=== PATIENT | female | born 1940 | race Two or more races ===

== ENCOUNTER 2017-01-29 00:39 | Inpatient (IN) | payer OTHER ==
[2017-01-29 01:01] VITALS: BMI 25.4
[2017-01-29] MEDS ORDERED: SODIUM CHLORIDE 0.9% 1000 ML INFUS.BAG IV ONE (01:27)
[2017-01-29] MEDS ORDERED: ACETAMINOPHEN 1000 MG/100 ML VIAL (NON FORMULARY) IVPB ONE (01:27)
[2017-01-29] MEDS ORDERED: ACETAMINOPHEN INJECTION 100 ML IVPB ONE (01:38)
[2017-01-29 01:40] LABS: BASOPHIL 0.9 % (0-2.0); EOSINOPHIL 2.8 % (0-4.5); MCH 22.1 pg (25.7-33.7); MCHC 31.1 g/dl (32.0-36.0); PLATELET COUNT 225 K/MM3 (134-434); RDW 21.4 % (11.6-15.6); WHITE BLOOD COUNT 8.9 K/mm3 (4.0-10.0)
[2017-01-29 01:44] LABS: ANISOCYTOSIS 2+; HYPOCHROMIA 2+; MICROCYTOSIS 2+
[2017-01-29 02:08] LABS: ALBUMIN 3.6 g/dl (3.4-5.0); BILIRUBIN,TOTAL 0.7 mg/dL (0.2-1.0); CALCIUM 8.9 mg/dL (8.5-10.1); COCKROFT - GAULT 23.902; TOT PROT 7.8 g/dl (6.4-8.2)
[2017-01-29 02:27] LABS: TROPONIN I 0.62 ng/ml (0.00-0.05)
[2017-01-29 03:49] LABS: URINE APPEARANCE CLEAR; URINE BILIRUBIN NEGATIVE (NEGATIVE); URINE BLOOD NEGATIVE (NEGATIVE); URINE COLOR LTYELLOW; URINE GLUCOSE (UA) NEGATIVE (NEGATIVE); URINE KETONE NEGATIVE (NEGATIVE); URINE LEUK ESTERASE NEGATIVE (NEGATIVE); URINE NITRITE NEGATIVE (NEGATIVE); URINE PROTEIN NEGATIVE (NEGATIVE); URINE UROBILINOGEN NEGATIVE E.U./dl (0.2-1.0)
--- NOTE | 2017-01-29 05:38 | PDOC ---
History of Present Illness - General Chief Complaint: Chest Pain Stated Complaint: PAIN CHEST AND BACK Time Seen by Provider: 01/29/17 01:05 History Source: Patient Exam Limitations: No Limitations - History of Present Illness Initial Comments: 01/29/17 05:38 76yo Female patient w/ PmHx: Open heart surgery, Stent placement, Pacemaker, HTN , DM presents to ED c/o Chest Pain that began yesterday morning and has been intermittent. Associated back pain. Patient denies any other complaints at this time. PCP- Dr. Gipson Cardiology- Dr. Ho Presenting Symptoms: Chest Pain Timing/Duration: reports: getting worse, intermittent Severity/Quality: reports: moderate Location: reports: substernal Chest Pain Radiation: reports: back Activities at Onset: reports: no specific activity Modifying Factors: worse with: antacids, breathing, coughing, defecating, eating , exercise, lying down, morphine, movement, nitroglycerin, oxygen, palpation, rest, other Nitro Today/Relief: No: no nitro taken today, 0.4 mg x 1, 0.4 mg x 2, 0.4 mg x 3 , 0.4 mg x 4, provided by EMS, provided by ED, provided at home, no relief, mild relief, complete relief Aspirin Received prior to arrival (Core Measure): Yes: provided at home [place] Contraindications (Core Measure): Yes: Pacemaker Past History - Travel Traveled outside of the country in the last 30 days: No Close contact w/someone who was outside of country & ill: No - Past Medical History Allergies/Adverse Reactions: Allergies Allergy/AdvReac Type Severity Reaction Status Date / Time No Known Allergies Allergy Verified 01/29/17 03:35 Home Medications: Ambulatory Orders Magnesium Oxide 400 mg PO DAILY 05/01/14 Metformin HCl [Glucophage] 500 mg PO BID 05/01/14 Aspirin Coated [Ecotrin -] 81 mg PO DAILY #30 tablet.ec 12/21/15 Digoxin [Lanoxin -] 0.125 mg PO DAILY tablet 12/21/15 Lisinopril [Prinivil] 2.5 mg PO DAILY #30 tablet 12/21/15 Naproxen [Naprosyn -] 500 mg PO BID 02/26/16 Pantoprazole Sodium [Protonix] 40 mg PO DAILY 02/26/16 Furosemide [Lasix -] 40 mg PO BID #60 tablet 03/01/16 Metoprolol Succinate [Toprol XL -] 50 mg PO BID #60 tab.sr.24h 03/01/16 Potassium Chloride [K-Dur -] 20 meq PO DAILY #0 03/01/16 Anemia: Yes Asthma: Yes Cancer: Yes (uterus) Cardiac Disorders: Yes (A FIB,CABG, PPM, ICD, MVR) CVA: No COPD: No CHF: No Dementia: No Diabetes: Yes GI Disorders: No Disorders: No HTN: Yes Hypercholesterolemia: Yes Liver Disease: No Seizures: No Thyroid Disease: No - Surgical History Abdominal Surgery: No Appendectomy: No Cardiac Surgery: Yes (bypass PACEMAKER) Cholecystectomy: No Lung Surgery: No Orthopedic Surgery: No - Immunization History Immunization Up to Date: No - Psycho/Social/Smoking Cessation Hx Anxiety: No Suicidal Ideation: No Smoking Status: No Smoking History: Never smoked Have you smoked in the past 12 months: No Number of Cigarettes Smoked Daily: 0 If you are a former smoker, when did you quit?: 1995 Information on smoking cessation initiated: No Hx Alcohol Use: No Drug/Substance Use Hx: No Substance Use Type: None Hx Substance Use Treatment: No Cardiac Specific PMH - Complaint Specific PMHX Pacemaker: Yes Review of Systems - Review of Systems Able to Perform ROS?: Yes Is the patient limited Bulgarian proficient: No Constitutional: No: Chills, Fever Respiratory: No: Cough, Shortness of Breath, Stridor, Wheezing Cardiac (ROS): Yes: Chest Pain, Palpitations. No: Lightheadedness, Syncope, Chest Tightness ABD/GI: No: Constipated, Diarrhea, Nausea, Poor Appetite, Poor Fluid Intake, Rectal Bleeding, Vomiting : No: Dysuria, Flank Pain, Hematuria Musculoskeletal: Yes: Back Pain Integumentary: No: Bruising, Erythema, Rash, Sweating Neurological: No: Headache, Seizure, Unsteady Gait, Ataxia All Other Systems: Reviewed and Negative *Physical Exam - Vital Signs Last Vital Signs Temp Pulse Resp BP Pulse Ox 98.1 F 64 18 106/61 100 01/29/17 00:59 01/29/17 04:42 01/29/17 04:42 01/29/17 04:42 01/29/17 04:42 - Physical Exam General Appearance: Yes: Nourished, Appropriately Dressed. No: Apparent Distress, Mild Distress, Moderate Distress, Severe Distress Neck: positive: Trachea midline, Supple. negative: Stridor, Lymphadenopathy (R) , Lymphadenopathy (L) Respiratory/Chest: positive: Lungs Clear, Normal Breath Sounds. negative: Chest Tender, Respiratory Distress, Accessory Muscle Use, Labored Respiration, Rapid RR Cardiovascular: positive: Tachycardia Gastrointestinal/Abdominal: positive: Normal Bowel Sounds, Soft. negative: Distended, Guarding, Rebound, Tenderness Musculoskeletal: positive: Normal Inspection. negative: CVA Tenderness, Vertebral Tenderness Extremity: positive: Normal Capillary Refill, Normal Inspection, Normal Range of Motion. negative: Pedal Edema, Swelling, Calf Tenderness, Erythema, Inflammation Integumentary: positive: Normal Color, Dry, Warm. negative: Erythema, Rash, Swelling Neurologic: positive: bank courier II-XII NML intact, Fully Oriented, Alert, Normal Mood/ Affect, Normal Response, Motor Strength 5/5 Heart Score/ECG Review - History History: Moderately suspicious - Electrocardiogram EKG: Non specific repolarization disturbance - Age Age: >/= 65 - Risk Factors Risk Factors Heart Score: Yes Hx Hypertension, Yes Hx Diabetes Based on the list above the patient has:: 1-2 risk factors - Troponin Troponin: >/=3x normal limit - Score Heart Score - Total: 7 ED Treatment Course - LABORATORY CBC & Chemistry Diagram: 01/29/17 01:30 01/29/17 01:30 - ADDITIONAL ORDERS Additional order review: Laboratory Results 01/29/17 01/29/17 01:30 01:28 Sodium 134 L Potassium 5.3 H Chloride 97 L Carbon Dioxide 24 Anion Gap 13 BUN 50 H Creatinine 2.0 H Creat Clearance w eGFR 24.10 Random Glucose 153 H Calcium 8.9 Total Bilirubin 0.7 AST 41 H D ALT 27 D Alkaline Phosphatase 140 H Creatine Kinase 111 Troponin I 0.62 H* Total Protein 7.8 Albumin 3.6 Urine Color Ltyellow Urine Appearance Clear Urine pH 5.0 Urine Protein Negative Urine Glucose (UA) Negative Urine Ketones Negative Urine Blood Negative Urine Nitrite Negative Urine Bilirubin Negative Urine Urobilinogen Negative Ur Leukocyte Esterase Negative 01/29/17 01:30 RBC 4.39 MCV 71.0 L MCHC 31.1 L RDW 21.4 H MPV 9.0 Neutrophils % 60.0 Lymphocytes % 21.8 D Monocytes % 14.5 H Eosinophils % 2.8 Basophils % 0.9 - RADIOLOGY Radiology Studies Ordered: Category Date Time Status CHEST X-RAY PORTABLE* [RAD] Stat Radiology 01/29/17 01:28 Taken - Medications Given in the ED: ED Medications Discontinued Medications Generic Name Dose Route Start Last Admin Trade Name Freq PRN Reason Stop Dose Admin Acetaminophen 1,000 mg 01/29/17 01:27 01/29/17 01:43 Ofirmev Injection - IVPB 01/29/17 01:28 1,000 mg ONCE ONE Administration Sodium Chloride 250 ml 01/29/17 01:27 01/29/17 02:05 Normal Saline - IV 01/29/17 01:28 250 ml ONCE ONE Administration Medical Decision Making - Medical Decision Making 01/29/17 05:[address] Ortiz. Give ASA and Lopressor. No anticoagulation until second trop. If still having CP give SL Nitro prn. *DC/Admit/Observation/Transfer Diagnosis at time of Disposition: Chest pain, Elevated troponin level - Discharge Dispostion Condition at time of disposition: Fair Admit: Yes
[2017-01-29] MEDS ORDERED: METOPROLOL TARTRATE 25 MG TABLET (FP) PO ONE (05:44)
[2017-01-29] MEDS ORDERED: ASPIRIN 81 MG CHEWABLE TABLETS PO ONE (05:44)
[2017-01-29] MEDS ORDERED: ASPIRIN 81 MG CHEWABLE TABLETS ONE (05:55)
[2017-01-29 07:55] LABS: INR 1.11 (0.82-1.09); PROTHROMBIN TIME (PATIENT) 12.2 SEC (9.98-11.88)
--- NOTE | 2017-01-29 08:39 | HP ---
Admitting History and Physical - Primary Care Physician PCP: Aldo Gipson - Past Medical History Cardiovascular: Yes: AFIB, CAD, CHF (s/p AICD), HTN Gastrointestinal: No: GI Bleed Heme/Onc: Yes: Anemia, Cancer (vaginal cancer) Endocrine: Yes: Diabetes Mellitus - Past Surgical History Past Surgical History: Yes: CABG, Permanent Pacemaker - Smoking History Smoking history: Never smoked Have you smoked in the past 12 months: No Aproximately how many cigarettes per day: 0 If you are a former smoker, when did you quit?: 1995 - Alcohol/Substance Use Hx Alcohol Use: No - Social History History of Recent Travel: No <Reji Patel - Last Filed: 01/29/17 08:39> Home Medications <Reji Patel - Last Filed: 01/29/17 08:39> <Anamaria Velázquez - Last Filed: 01/29/17 13:13> - Allergies Allergies/Adverse Reactions: Allergies Allergy/AdvReac Type Severity Reaction Status Date / Time No Known Allergies Allergy Verified 01/29/17 03:35 - Home Medications Home Medications: Ambulatory Orders Magnesium Oxide 400 mg PO DAILY 05/01/14 Metformin HCl [Glucophage] 500 mg PO BID 05/01/14 Aspirin Coated [Ecotrin -] 81 mg PO DAILY #30 tablet.ec 12/21/15 Digoxin [Lanoxin -] 0.125 mg PO DAILY tablet 12/21/15 Lisinopril [Prinivil] 2.5 mg PO DAILY #30 tablet 12/21/15 Naproxen [Naprosyn -] 500 mg PO BID 02/26/16 Pantoprazole Sodium [Protonix] 40 mg PO DAILY 02/26/16 Furosemide [Lasix -] 40 mg PO BID #60 tablet 03/01/16 Metoprolol Succinate [Toprol XL -] 50 mg PO BID #60 tab.sr.24h 03/01/16 Potassium Chloride [K-Dur -] 20 meq PO DAILY #0 03/01/16 Physical Examination Vital Signs: Vital Signs Temperature 98.1 F 01/29/17 00:59 Pulse Rate 64 01/29/17 04:42 Respiratory Rate 18 01/29/17 04:42 Blood Pressure 106/61 01/29/17 04:42 O2 Sat by Pulse Oximetry (%) 100 01/29/17 04:42 <Reji Patel - Last Filed: 01/29/17 08:39> Vital Signs: Vital Signs Temperature 98.1 F 01/29/17 00:59 Pulse Rate 65 01/29/17 08:42 Respiratory Rate 15 01/29/17 08:42 Blood Pressure 98/60 01/29/17 08:42 O2 Sat by Pulse Oximetry (%) 96 01/29/17 08:42 <Anamaria Velázquez - Last Filed: 01/29/17 13:13>
[2017-01-29 09:37] LABS: TROPONIN I 1.51 ng/ml (0.00-0.05)
--- NOTE | 2017-01-29 09:51 | CON.CARD ---
Cardiology Consult (text) - Consultation Consultation Note: cc: cp hpi: 76 yo f hx ICM, CHF (severely reduced LVEF), s/p ICD (single chamber, [employer], placed 07/2013), CAD s/p cabg and prior multiple PCI (cabg 2012 at [facility], russell to lad and svg to om), MVR (bio) 10/2012, p-afib/flutter (s/p MAZE and DARIO ligation 10/2012), mod-sev (low flow low gradient?), dm, htn, hld, anemia requiring transfusions here with cp. States she has had stable intermittent cp with exertion. On sunday worsened in frequency and severity. Now with left side cp after walking which radiates to the back and neck. Resolves with rest. No sx's at rest. currently cp free No worsening of stable desai. No palps, dizzy, loc, pnd, orthopnea, le edema. Did not miss any meds. No bleeding. s/p NTG by ems. On arrival to ER was in RVR. Spontaneously converted. cardio ginelli pmh: per hpi psh: cabd, mvr, icd social: former tobacco, no etoh or illicits fam: mother with unknown heart problems, daughter with unknown open heart surgery. ros: per hpi; no f/c/s, nvd, cough, nasal congestion, rash, wt loss, h/a, vision changes meds: Ambulatory Orders Magnesium Oxide 400 mg PO DAILY 05/01/14 Metformin HCl [Glucophage] 500 mg PO BID 05/01/14 Aspirin Coated [Ecotrin -] 81 mg PO DAILY #30 tablet.ec 12/21/15 Digoxin [Lanoxin -] 0.125 mg PO DAILY tablet 12/21/15 Lisinopril [Prinivil] 2.5 mg PO DAILY #30 tablet 12/21/15 Naproxen [Naprosyn -] 500 mg PO BID 02/26/16 Pantoprazole Sodium [Protonix] 40 mg PO DAILY 02/26/16 Furosemide [Lasix -] 40 mg PO BID #60 tablet 03/01/16 Metoprolol Succinate [Toprol XL -] 50 mg PO BID #60 tab.sr.24h 03/01/16 Potassium Chloride [K-Dur -] 20 meq PO DAILY #0 03/01/16 pe: Vital Signs - 24 hr 01/29/17 01/29/17 01/29/17 00:59 01:01 01:15 Temperature 98.1 F Pulse Rate 122 H Pulse Rate [ Apical] Respiratory 20 20 Rate Blood Pressure 98/69 Blood Pressure [Left Arm] O2 Sat by Pulse 95 100 97 Oximetry (%) 01/29/17 01/29/17 04:42 08:42 Temperature Pulse Rate Pulse Rate [ 64 65 Apical] Respiratory 18 15 Rate Blood Pressure Blood Pressure 106/61 98/60 [Left Arm] O2 Sat by Pulse 100 96 Oximetry (%) nad, calm JVD flat, neck supple pocket site non-erythematous, non-tender rrr s1s2 2/6 murmur at sternal border. cta bl nl eff aaox3 no le e/c/c abd nt nd pos bs no jaundice diaphoresis pos dp pt, no carotid bruits CBC, BMP 01/29/17 01:30 01/29/17 01:30 Laboratory Tests 01/29/17 01/29/17 01:30 08:46 Total Bilirubin 0.7 AST 41 H D ALT 27 D Alkaline Phosphatase 140 H Troponin I 0.62 H* 1.51 H* Albumin 3.6 tele: SR, occ pvc's and demand pacing. ecg 1: SVT, 121 bpm (qrs widening likely from underlying IVCD). lateral STD/T wave abnormalities. . ecg 2: sr, first degree avb, nonspecific ivcd, pvc's. LAD lateral STD/T wave abnormalities. (similar to priors) cxr: clear lungs Echo 09/2016: sev lve. lvef 35%. global. nl rv, mild lae, trace-mild ar, mod as, nl bio mvr, mild-mod tr, mild phtn. Echo 02/2016: mod lv dilation, severe LV dysfunction (global). Nl RV size (no mention of function). sev lae. mod-sev . mg 24. mild-mod AR. bioMVR MG 4.3. 1+ mr . mod-sev tr. rvsp 40-50. echo 07/2014: severely reduced lvef (25%), severe global hypo, mod dilated LV, normal RV s/f, mod lae, normal functioning bioprosthetic MVR, mild , trace ar , mild/mod tr, rvsp 30-40. Echo 12/2012: sev decreased LVEF, mod dilated LV, nl rv size/fcn, mod dil la, mild-mod dil ra, trace mr, mod-sev tr, rvsp 37, mod-sev aortic sclerosis with mild-mod cath 03/23/14 at [facility] [place]: patent russell to lad, patent svg to om1, patent prior pci in pRCA, mRCA (30-50%), AV continuation 80-90% --> WILL, ISR of pLAD (70-80%), patent D2 stent, TO/ISR of pLCx, TO/ISR OM1. EF 25%. No on pull back. mibi 02/2014: Moderate intensity, moderate size mostly fixed defect of inferior wall consistent with scar with minimal bianca-infarct ischemia. Mild intensity, moderate size reversible defect from mid to base of anterior, anteroseptal, anterolateral browne consistent with mild ischemia. LVEF is severely reduced with global hypokinesis and severely dilated LV. -->sent for cath after this MIBI a/p: 76 yo f hx ICM, CHF (severely reduced LVEF), s/p ICD (single chamber, [employer], placed 07/2013), CAD s/p cabg and prior multiple PCI (cabg 2012 at [facility], russell to lad and svg to om), MVR (bio) 10/2012, p-afib/flutter (s/p MAZE and DARIO ligation 10/2012), mod-sev (low flow low gradient?), dm, htn, hld, anemia requiring transfusions here with cp. CP - + troponin, trending up. Nl CK. + exertional angina. ? demand in setting of CKD, RVR vs. symtomatic severe vs. ACS/NSTEMI. Patient high risk, would treat as nstemi and start AC. con't ASA. Add plavix. statin. - trend enzymes to peak. Will likely need transfer for cath/dobutamine assessment of aortic valve. Patient previously could not tolerate coumadin due to anemia/transfusions wit no clear source --> have held AC based on risk/ benefit evaluation. Will need to assess if she is a candidate for DAPT if stent were to be needed. Will discuss with her outpatient flight hostess. - remains cp free. - repeat echo. ICM, severely reduced EF s/p ICD: - Patient on 40 mg of lasix at home. Appears euvolemic, but may be decompensated in setting of low output/low flow . -Would hold KEV for now in light of hyperkalemia. Con't toprol for now to suppress RVR. - con't home diuretic dose for now. -Most recent ICD interrogation 11/2016 per office notes. Brief episodes of asx svt. Patient denies shocks. - unclear to me if moderate or if low-flow, low gradient . No gradient on pullback at 2014 cath. Will discuss with outpatient flight hostess regarding whether current picture could be from symptomatic severe and need for dobutamine study/TAVR eval. cad s/p CABG, mult PCIs (last was WILL to AV continuation/RCA in March 2014): - CP/ACS managment as above. -cont lipitor, bb, asa. adding plavix. holding kev. p-afib/flutter: -S/p MAZE and DARIO ligation. -In RVR on arrival, now rate controlled in SR -hold digoxin in light of K abnormalities. will get digoxing level this afternoon. con't bb -Could not tolerate coumadin due to anemia requiring frequent transfusions and no clear source. Has DARIO ligation so embolic risk likely low regardless. Cont asa for now. (temporary AC for nstemi as mentioned above). htn: -stable on meds. runs low. s/p bio MVR: -recent echo with nl biomvr. anemia with h/o transfusions - hgb at baseline here. Monitor on anti-platelets/AC.
[2017-01-29] MEDS ORDERED: HEPARIN NA (PORCINE) 5,000 UNITS/ML 1ML VIAL IVPUSH PRN ×2 (11:18→11:48)
--- NOTE | 2017-01-29 11:43 | HP ---
Admitting History and Physical - Primary Care Physician PCP: Aldo Gipson - Admission Chief Complaint: cp History of Present Illness: 76yo Female patient w/ PmHx: Open heart surgery--cabg , Stent placement, Pacemaker, HTN, DM , ckd, s/p icd , s/p bio- mvr, afib and chf with very low ef presents to ED c/o Chest Pain that began yesterday morning and has been intermittent. pt given ntg in er pt made + ve troponins Started on heparin Pt seen /examined y me in er Case was discussed with er physician core feeder. pt at present comfortble denies cp now says feels better. PCP- Dr. Gipson Cardiology- Dr. Ho History Source: Patient, Medical Record Limitations to Obtaining History: No Limitations - Past Medical History Cardiovascular: Yes: AFIB, CAD, CHF (s/p AICD), HTN Gastrointestinal: No: GI Bleed Heme/Onc: Yes: Anemia, Cancer (vaginal cancer) Endocrine: Yes: Diabetes Mellitus - Past Surgical History Past Surgical History: Yes: CABG, Permanent Pacemaker - Smoking History Smoking history: Never smoked Have you smoked in the past 12 months: No Aproximately how many cigarettes per day: 0 If you are a former smoker, when did you quit?: 1995 - Alcohol/Substance Use Hx Alcohol Use: No - Social History History of Recent Travel: No Home Medications - Allergies Allergies/Adverse Reactions: Allergies Allergy/AdvReac Type Severity Reaction Status Date / Time No Known Allergies Allergy Verified 01/29/17 03:35 - Home Medications Home Medications: Ambulatory Orders Magnesium Oxide 400 mg PO DAILY 05/01/14 Metformin HCl [Glucophage] 500 mg PO BID 05/01/14 Aspirin Coated [Ecotrin -] 81 mg PO DAILY #30 tablet.ec 12/21/15 Digoxin [Lanoxin -] 0.125 mg PO DAILY tablet 12/21/15 Lisinopril [Prinivil] 2.5 mg PO DAILY #30 tablet 12/21/15 Naproxen [Naprosyn -] 500 mg PO BID 02/26/16 Pantoprazole Sodium [Protonix] 40 mg PO DAILY 02/26/16 Furosemide [Lasix -] 40 mg PO BID #60 tablet 03/01/16 Metoprolol Succinate [Toprol XL -] 50 mg PO BID #60 tab.sr.24h 03/01/16 Potassium Chloride [K-Dur -] 20 meq PO DAILY #0 03/01/16 Family Disease History - Family Disease History Family History: Unremarkable Review of Systems - Review of Systems Constitutional: reports: No Symptoms Eyes: reports: No Symptoms HENT: reports: No Symptoms Neck: reports: No Symptoms Cardiovascular: reports: Chest Pain, Shortness of Breath Gastrointestinal: reports: No Symptoms Genitourinary: reports: No Symptoms Musculoskeletal: reports: Back Pain Neurological: reports: No Symptoms Psychiatric: reports: No Symptoms Physical Examination Vital Signs: Vital Signs Temperature 98.1 F 01/29/17 00:59 Pulse Rate 65 01/29/17 08:42 Respiratory Rate 15 01/29/17 08:42 Blood Pressure 98/60 01/29/17 08:42 O2 Sat by Pulse Oximetry (%) 96 01/29/17 08:42 Constitutional: Yes: No Distress, Calm Eyes: Yes: Conjunctiva Clear Neck: Yes: Supple, Trachea Midline, Other (no jvd) Cardiovascular: Yes: Regular Rate and Rhythm Gastrointestinal: Yes: Normal Bowel Sounds, Soft Edema: No Neurological: Yes: Alert Psychiatric: Yes: Alert Imaging - Results Chest X-ray: Report Reviewed EKG: Report Reviewed Problem List - Problems (1) Chest pain Code(s): R07.9 - CHEST PAIN, UNSPECIFIED (2) Elevated troponin Code(s): R74.8 - ABNORMAL LEVELS OF OTHER SERUM ENZYMES (3) Afib Code(s): I48.91 - UNSPECIFIED ATRIAL FIBRILLATION (4) Anemia Code(s): D64.9 - ANEMIA, UNSPECIFIED Qualifiers: Anemia type: other cause (5) CAD (coronary artery disease) of artery bypass graft Code(s): I25.810 - ATHEROSCLEROSIS OF CABG W/O ANGINA PECTORIS (6) CHF (congestive heart failure) Code(s): I50.9 - HEART FAILURE, UNSPECIFIED Qualifiers: Congestive heart failure type: unspecified congestive heart failure type Congestive heart failure chronicity: acute on chronic Qualified Code(s ): I50.9 - Heart failure, unspecified (7) Dyspnea Code(s): R06.00 - DYSPNEA, UNSPECIFIED (8) Renal function impairment Code(s): N28.9 - DISORDER OF KIDNEY AND URETER, UNSPECIFIED Assessment/Plan Admit tele serial enzymes cardiology on case heparin. meds reviewed d/c metformin Avoid nsaid monitor renal function condition gaurded . discussed with nursing staff also. will follow. cc time 40 min
[2017-01-29] MEDS ORDERED: CLOPIDOGREL BISULFATE 75 MG TABLET (FP) ONE (12:14)
[2017-01-29] MEDS: CLOPIDOGREL BISULFATE 75 MG TABLET (FP) PO SCH (12:15)
[2017-01-29] MEDS: HEPARIN - 25,000 UNIT in SODIUM CHLORIDE 495 ML IV SCH (12:15)
[2017-01-29] MEDS ORDERED: HEPARIN NA (PORCINE) 5,000 UNITS/ML 1ML VIAL ONE (12:15)
[2017-01-29] MEDS ORDERED: HEPARIN INFUSION - 500 ML IVPB ONE (12:15)
--- NOTE | 2017-01-29 14:03 | EKG ---
Test Reason : Blood Pressure : / mmHG Vent. Rate : 071 BPM Atrial Rate : 258 BPM P-R Int : 000 ms QRS Dur : 130 ms QT Int : 440 ms P-R-T Axes : 000 -64 122 degrees QTc Int : 478 ms ATRIAL FIBRILLATION WITH PREMATURE VENTRICULAR OR ABERRANTLY CONDUCTED COMPLEXES LEFT AXIS DEVIATION NON-SPECIFIC INTRA-VENTRICULAR CONDUCTION BLOCK T WAVE ABNORMALITY, CONSIDER LATERAL ISCHEMIA ABNORMAL ECG WHEN COMPARED WITH ECG OF 29-JAN-2017 00:51, VENT. RATE HAS DECREASED VENTRICULAR ECTOPIES ARE SEEN Confirmed by FOSTER CHAVARRIA MD ([id number]) on 01/29/2017 2:03:06 PM Referred By: Confirmed By:FOSTER CHAVARRIA MD
--- NOTE | 2017-01-29 14:04 | EKG ---
Test Reason : Blood Pressure : / mmHG Vent. Rate : 121 BPM Atrial Rate : 105 BPM P-R Int : 000 ms QRS Dur : 136 ms QT Int : 354 ms P-R-T Axes : 000 -62 092 degrees QTc Int : 502 ms WIDE QRS TACHYCARDIA LEFT AXIS DEVIATION NON-SPECIFIC INTRA-VENTRICULAR CONDUCTION BLOCK ABNORMAL QRS-T ANGLE, CONSIDER PRIMARY T WAVE ABNORMALITY ABNORMAL ECG WHEN COMPARED WITH ECG OF 26-FEB-2016 16:11, WIDE QRS TACHYCARDIA HAS REPLACED SINUS RHYTHM VENT. RATE HAS INCREASED BY 40 BPM Confirmed by FOSTER CHAVARRIA MD ([id number]) on 01/29/2017 2:04:16 PM Referred By: Confirmed By:FOSTER CHAVARRIA MD
[2017-01-29] MEDS: FUROSEMIDE 40 MG TABLET (FP) PO SCH (15:00)
[2017-01-29] MEDS ORDERED: FUROSEMIDE 40 MG TABLET (FP) ONE (15:03)
[2017-01-29 17:38] LABS: CALCIUM 8.9 mg/dL (8.5-10.1); COCKROFT - GAULT 31.8665; CREATININE 1.5 mg/dL (0.55-1.02)
[2017-01-29 17:51] LABS: DIGOXIN LEVEL 0.6122 ng/ml (0.8-2.0)
[2017-01-29 17:55] LABS: TROPONIN I 1.2 ng/ml (0.00-0.05)
[2017-01-29] MEDS: ATORVASTATIN CA 40 MG TABLET (FP) PO SCH (23:50)
[2017-01-29] MEDS: METOPROLOL SUCCINATE 50 MG TAB.SR.24H (FP) PO SCH (23:50)
[2017-01-30] MEDS: FUROSEMIDE 40 MG TABLET (FP) PO SCH ×2 (06:20→15:20)
[2017-01-30 06:58] LABS: BASOPHIL 0.7 % (0-2.0); EOSINOPHIL 4.4 % (0-4.5); MCH 22.6 pg (25.7-33.7); MCHC 31.7 g/dl (32.0-36.0); MEAN CELL VOLUME 71.1 fl (80-96); MEAN PLT VOLUME 9.1 fl (7.5-11.1); NEUTROPHILS 61.2 % (42.8-82.8); PLATELET COUNT 171 K/MM3 (134-434); RDW 21.8 % (11.6-15.6); WHITE BLOOD COUNT 6.3 K/mm3 (4.0-10.0)
[2017-01-30 07:34] LABS: ALBUMIN 3.2 g/dl (3.4-5.0); BILIRUBIN,TOTAL 0.6 mg/dL (0.2-1.0); CALCIUM 8.7 mg/dL (8.5-10.1); COCKROFT - GAULT 34.1445; CREATININE 1.4 mg/dL (0.55-1.02); MAGNESIUM 2.3 mg/dL (1.8-2.4); TOT PROT 6.6 g/dl (6.4-8.2)
[2017-01-30] MEDS: MAGNESIUM OXIDE 400 MG TABLET (FP) PO SCH (09:23)
[2017-01-30] MEDS: PANTOPRAZOLE 40 MG TABLET (FP) PO SCH (09:23)
[2017-01-30] MEDS: ASPIRIN COATED 81 MG TABLET.EC PO SCH (09:23)
[2017-01-30] MEDS: CLOPIDOGREL BISULFATE 75 MG TABLET (FP) PO SCH (09:23)
[2017-01-30] MEDS: METOPROLOL SUCCINATE 50 MG TAB.SR.24H (FP) PO SCH ×2 (09:23→21:05)
[2017-01-30] MEDS ORDERED: DIGOXIN 0.125 MG TABLET (FP) PO SCH (10:00)
[2017-01-30] MEDS ORDERED: LISINOPRIL 5 MG TABLET (FP) PO SCH (10:00)
--- NOTE | 2017-01-30 11:18 | PN ---
Progress Note (short form) - Note Progress Note: cc: cp S: no further cp today, sob improved. no palps, dizziness. Current Medications Aspirin (Ecotrin -) 81 mg PO DAILY [facility] Last Admin: 01/30/17 09:23 Dose: 81 mg Atorvastatin Calcium (Lipitor -) 40 mg PO HS [facility] Last Admin: 01/29/17 23:50 Dose: 40 mg Clopidogrel Bisulfate (Plavix -) 75 mg PO DAILY [facility] Last Admin: 01/30/17 09:23 Dose: 75 mg Furosemide (Lasix -) 40 mg PO BIDLASIX [facility] Last Admin: 01/30/17 06:20 Dose: 40 mg Heparin Sodium (Porcine) (Heparin -) 1,000 unit IVPUSH PRN PRN PRN Reason: Heparin Heparin Sodium (Porcine) (Heparin -) 5,000 unit IVPUSH PRN PRN Last Admin: 01/29/17 12:15 Dose: 5,000 unit Heparin Sodium (Porcine) 25, (000 unit/ Sodium Chloride) 500 mls @ 16 mls/hr IV TITR ZAY; 800 UNIT/HR PRN Reason: Protocol Last Titration: 01/29/17 20:00 Dose: 800 unit/hr Magnesium Oxide (Mag-Ox -) 400 mg PO DAILY [facility] Last Admin: 01/30/17 09:23 Dose: 400 mg Metoprolol Succinate (Toprol Xl -) 50 mg PO BID [facility] Last Admin: 01/30/17 09:23 Dose: 50 mg Pantoprazole Sodium (Protonix -) 40 mg PO DAILY [facility] Last Admin: 01/30/17 09:23 Dose: 40 mg Vital Signs - 24 hr 01/29/17 01/29/17 01/29/17 12:42 15:00 17:48 Temperature 98 F Pulse Rate 128 H Pulse Rate [ 83 67 Apical] Respiratory 22 22 Rate Blood Pressure 103/37 Blood Pressure 122/53 111/54 [Left Arm] O2 Sat by Pulse 97 96 Oximetry (%) 01/29/17 01/29/17 01/29/17 18:00 21:00 22:00 Temperature 98.9 F Pulse Rate 114 H Pulse Rate [ Apical] Respiratory 20 Rate Blood Pressure 119/67 Blood Pressure [Left Arm] O2 Sat by Pulse 96 96 96 Oximetry (%) 01/30/17 01/30/17 01/30/17 02:00 06:00 10:00 Temperature 98.7 F 98.7 F 98.1 F Pulse Rate 89 82 95 H Pulse Rate [ Apical] Respiratory 18 20 20 Rate Blood Pressure 123/55 111/55 108/64 Blood Pressure [Left Arm] O2 Sat by Pulse 98 Oximetry (%) Intake & Output 01/28/17 01/29/17 01/30/17 01/31/17 07:59 07:59 07:59 07:59 Weight 144 lb 144 lb nad, calm JVD flat, neck supple pocket site non-erythematous, non-tender rrr s1s2 2/6 murmur at sternal border. cta bl nl eff aaox3 no le e/c/c abd nt nd pos bs no jaundice diaphoresis pos dp pt, no carotid bruits CBC, BMP 01/30/17 05:35 01/30/17 05:35 Laboratory Tests 01/29/17 01/30/17 16:38 05:35 Magnesium 2.3 Total Bilirubin 0.6 AST 22 D ALT 22 Alkaline Phosphatase 121 H Troponin I 1.20 H* Albumin 3.2 L tele: SR, intermittent svt. ecg 1: SVT, 121 bpm (qrs widening likely from underlying IVCD). lateral STD/T wave abnormalities. . ecg 2: sr, first degree avb, nonspecific ivcd, pvc's. LAD lateral STD/T wave abnormalities. (similar to priors) cxr: clear lungs Echo here 01/2017: nl lv size. sev red EF (global). nl rv size, no mention of fn. sev lae, mild-mod as, 1+ ar. well-seated bio mvr. mod tr rvsp 40-50. mod ao dilation. Echo 09/2016: sev lve. lvef 35%. global. nl rv, mild lae, trace-mild ar, mod as, nl bio mvr, mild-mod tr, mild phtn. Echo 02/2016: mod lv dilation, severe LV dysfunction (global). Nl RV size (no mention of function). sev lae. mod-sev . mg 24. mild-mod AR. bioMVR MG 4.3. 1+ mr . mod-sev tr. rvsp 40-50. cath 03/23/14 at [facility] [place]: patent russell to lad, patent svg to om1, patent prior pci in pRCA, mRCA (30-50%), AV continuation 80-90% --> WILL, ISR of pLAD (70-80%), patent D2 stent, TO/ISR of pLCx, TO/ISR OM1. EF 25%. No on pull back. mibi 02/2014: Moderate intensity, moderate size mostly fixed defect of inferior wall consistent with scar with minimal bianca-infarct ischemia. Mild intensity, moderate size reversible defect from mid to base of anterior, anteroseptal, anterolateral browne consistent with mild ischemia. LVEF is severely reduced with global hypokinesis and severely dilated LV. -->sent for cath after this MIBI a/p: 76 yo f hx ICM, CHF (severely reduced LVEF), s/p ICD (single chamber, [employer], placed 07/2013), CAD s/p cabg and prior multiple PCI (cabg 10/2012 at [facility], russell to lad and svg to om), MVR (bio) 10/2012, p-afib/flutter (s/p MAZE and DARIO ligation 10/2012), mod-sev (low flow low gradient?), dm, htn, hld, anemia requiring transfusions here with cp. CP - + troponin, trending up. Nl CK. + exertional angina. ? demand in setting of CKD, RVR vs. symptomatic severe vs. ACS/NSTEMI. Patient high risk, would treat as nstemi and start AC. con't ASA. Add plavix. statin. - Peak trop 1.5, nl CK. Plan for transfer to [facility] today for cath +/- dobutamine assessment of aortic valve. Patient previously could not tolerate coumadin due to anemia/transfusions with no clear source --> had held AC based on risk/ benefit evaluation. 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 Tolerated DAPT in 2013. Ok for WILL if needed. Interventional cardiology aware. - remains cp free. - repeat echo here, no signficant change. - rate control. ICM, severely reduced EF s/p ICD: - Patient on 40 mg of lasix at home. Appears euvolemic, will con't home dosing. -Held KEV on admit for hyperkalemia. Con't toprol for now to suppress RVR. Uptitration as mentioned below. - con't home diuretic dose for now. -Most recent ICD interrogation 11/2016 per office notes. Brief episodes of asx svt. Patient denies shocks. - unclear to me if moderate or if low-flow, low gradient . No gradient on pullback at 2013 cath. - Discussed with outpatient food cooking machine operator and interventional cardiology. On review of past echo leaflet motion does not appear significantly restricted. Possible aortic valve interrogation along with coronary angiography. cad s/p CABG, mult PCIs (last was WILL to AV continuation/RCA in March 2014): - CP/ACS managment as above. -cont lipitor, bb, asa. added plavix. held acei on admit for hyperkalemia. . p-afib/flutter: -S/p MAZE and DARIO ligation. -In RVR on arrival, now rate controlled in SR -hold digoxin in light of K abnormalities. level good. con't bb, will uptitrate to 75 bid today 01/30 -Could not tolerate coumadin due to anemia requiring frequent transfusions and no clear source. Has DARIO ligation so embolic risk likely low regardless. Cont asa for now. (temporary AC for nstemi as mentioned above). htn: -stable on meds. runs low. s/p bio MVR: -recent echo with nl biomvr. anemia with h/o transfusions - hgb at baseline here. Monitor on anti-platelets/AC.
[2017-01-30] MEDS ORDERED: COLCHICINE 0.6 MG TABLET (FP) PO ONE ×2 (12:10→13:00)
[2017-01-30] MEDS: HEPARIN - 25,000 UNIT in SODIUM CHLORIDE 495 ML IV SCH ×2 (12:11→21:13)
--- NOTE | 2017-01-30 12:12 | DS ---
Physical Examination Vital Signs: Vital Signs Temperature 98.1 F 01/30/17 10:00 Pulse Rate 95 H 01/30/17 10:00 Respiratory Rate 20 01/30/17 10:00 Blood Pressure 108/64 01/30/17 10:00 O2 Sat by Pulse Oximetry (%) 98 01/30/17 10:00 Constitutional: Yes: No Distress Cardiovascular: Yes: Regular Rate and Rhythm Respiratory: Yes: CTA Bilaterally Gastrointestinal: Yes: Normal Bowel Sounds, Soft. No: Distention, Pulsatile Mass, Tenderness Extremities: Yes: Other (pain in toes) Edema: No Labs: CBC, BMP 01/30/17 05:35 01/30/17 05:35 Discharge Summary Reason For Visit: CHEST PAIN/ELEVATED TROPONIN Current Active Problems Chest pain (Acute) Elevated troponin (Acute) Hospital Course: Admitted for chest pain Found to have elevated troponins-- admitted to Telemetry on Heparin infusion Seen by cardiology Has c/o toe pain - gout acute Decision made to transfer pt to [facility] for Cardiac cath Spoke with family member and pt Condition: Guarded - Instructions Referrals: Aldo Gipson MD [Primary Care Provider] - Disposition: TRANSFER ACUTE CARE/OTHER HOSP - Home Medications Comprehensive Discharge Medication List: Ambulatory Orders Magnesium Oxide 400 mg PO DAILY 05/01/14 Metformin HCl [Glucophage] 500 mg PO BID 05/01/14 Aspirin Coated [Ecotrin -] 81 mg PO DAILY #30 tablet.ec 12/21/15 Digoxin [Lanoxin -] 0.125 mg PO DAILY tablet 12/21/15 Lisinopril [Prinivil] 2.5 mg PO DAILY #30 tablet 12/21/15 Naproxen [Naprosyn -] 500 mg PO BID 02/26/16 Pantoprazole Sodium [Protonix] 40 mg PO DAILY 02/26/16 Furosemide [Lasix -] 40 mg PO BID #60 tablet 03/01/16 Metoprolol Succinate [Toprol XL -] 50 mg PO BID #60 tab.sr.24h 03/01/16 Potassium Chloride [K-Dur -] 20 meq PO DAILY #0 03/01/16
[2017-01-30] MEDS: ATORVASTATIN CA 40 MG TABLET (FP) PO SCH (21:05)
[2017-01-31] MEDS: COLCHICINE 0.6 MG TABLET (FP) PO SCH ×2 (00:14→09:52)
[2017-01-31] MEDS: FUROSEMIDE 40 MG TABLET (FP) PO SCH (06:10)
[2017-01-31 07:33] LABS: MCH 22.8 pg (25.7-33.7); MCHC 31.7 g/dl (32.0-36.0); MEAN CELL VOLUME 72.1 fl (80-96); MEAN PLT VOLUME 9.6 fl (7.5-11.1); PLATELET COUNT 169 K/MM3 (134-434); RDW 22.1 % (11.6-15.6); WHITE BLOOD COUNT 7.3 K/mm3 (4.0-10.0)
[2017-01-31] MEDS: ASPIRIN COATED 81 MG TABLET.EC PO SCH (09:52)
[2017-01-31] MEDS: CLOPIDOGREL BISULFATE 75 MG TABLET (FP) PO SCH (09:52)
[2017-01-31] MEDS: PANTOPRAZOLE 40 MG TABLET (FP) PO SCH (09:52)
[2017-01-31] MEDS: MAGNESIUM OXIDE 400 MG TABLET (FP) PO SCH (09:52)
--- NOTE | 2017-01-31 09:52 | PN ---
Progress Note (short form) - Note Progress Note: no bed available at [facility] Has chest pain this AM NTG given on Heparin infusion Vital Signs - 24 hr 01/30/17 01/30/17 01/30/17 14:00 17:00 21:00 Temperature 98.6 F 98.8 F 98.2 F Pulse Rate 85 70 130 H Respiratory 20 18 18 Rate Blood Pressure 99/53 126/65 104/60 O2 Sat by Pulse 96 Oximetry (%) 01/31/17 01/31/17 01/31/17 01:00 05:00 10:00 Temperature 98.4 F 98.9 F 98.7 F Pulse Rate 88 104 H 116 H Respiratory 18 18 20 Rate Blood Pressure 110/58 104/64 117/68 O2 Sat by Pulse 98 Oximetry (%) Laboratory Results - last 24 hr 01/30/17 01/31/17 01/31/17 17:30 05:10 05:10 WBC 7.3 RBC 4.18 Hgb 9.5 L Hct 30.1 L MCV 72.1 L MCHC 31.7 L RDW 22.1 H Plt Count 169 MPV 9.6 PTT (Actin FS) 55.2 H D 74.2 H D S1 S2 irregular Lungs clear Abd -soft, NT No edema PLAN Heparin infusion continue with meds For transfer today for cardiac cath Problem List - Problems (1) Chest pain Code(s): R07.9 - CHEST PAIN, UNSPECIFIED (2) Elevated troponin Code(s): R74.8 - ABNORMAL LEVELS OF OTHER SERUM ENZYMES (3) Afib Code(s): I48.91 - UNSPECIFIED ATRIAL FIBRILLATION (4) Anemia Code(s): D64.9 - ANEMIA, UNSPECIFIED Qualifiers: Anemia type: other cause
[2017-01-31] MEDS ORDERED: METOPROLOL SUCCINATE 25 MG TAB.SR.24H (FP) PO SCH (10:00)
[2017-01-31] MEDS ORDERED: NITROGLYCERIN SUBLINGUAL 1/150 0.4 MG TAB SL PRN (10:03)
--- NOTE | 2017-01-31 11:24 | PN ---
Progress Note (short form) - Note Progress Note: cc: cp S: had some cp earlier, now resolved. sob improved. no palps, dizziness, loc. no cigs o: Vital Signs Temp 98.9 F 01/31/17 05:00 Pulse 104 H 01/31/17 05:00 Resp 18 01/31/17 05:00 BP 104/64 01/31/17 05:00 Pulse Ox 96 01/30/17 21:00 Intake & Output 01/30/17 01/30/17 01/31/17 11:59 23:59 11:59 Intake Total 480 336 Output Total 1 Balance 479 336 Weight 139 lb Intake: IV 216 Heparin - 25,000 Unit In 216 Normal Saline - 495 ml @ 800 UNIT/HR 16 mls/hr IV TITR ZAY Rx#:[id number] Oral 480 120 Output: Urine 1 Void 1 Other: Voiding Method Toilet Toilet Toilet # Unmeasured Voids Void 2 Weight Measurement Method Standing Scale nad, calm JVD flat, neck supple rrr s1s2 2/6 murmur at sternal border. cta bl nl eff aaox3 no le e/c/c abd nt nd pos bs no jaundice diaphoresis pos dp pt, no carotid bruits Laboratory Last Values WBC 7.3 K/mm3 (4.0-10.0) 01/31/17 05:10 RBC 4.18 M/mm3 (3.60-5.2) 01/31/17 05:10 Hgb 9.5 GM/dL (10.7-15.3) L 01/31/17 05:10 Hct 30.1 % (32.4-45.2) L 01/31/17 05:10 MCV 72.1 fl (80-96) L 01/31/17 05:10 MCHC 31.7 g/dl (32.0-36.0) L 01/31/17 05:10 RDW 22.1 % (11.6-15.6) H 01/31/17 05:10 Plt Count 169 K/MM3 (134-434) 01/31/17 05:10 MPV 9.6 fl (7.5-11.1) 01/31/17 05:10 Neutrophils % 61.2 % (42.8-82.8) 01/30/17 05:35 Lymphocytes % 22.5 % (8-40) 01/30/17 05:35 Monocytes % 11.2 % (3.8-10.2) H 01/30/17 05:35 Eosinophils % 4.4 % (0-4.5) 01/30/17 05:35 Basophils % 0.7 % (0-2.0) 01/30/17 05:35 Hypochromic-Microcytic 2+ 01/29/17 01:30 Anisocytosis 2+ 01/29/17 01:30 Microcytosis 2+ 01/29/17 01:30 INR 1.11 (0.82-1.09) 01/29/17 01:49 PTT (Actin FS) 74.2 SECONDS (26.9-34.4) H D 01/31/17 05:10 Sodium 140 mmol/L (136-145) 01/30/17 05:35 Potassium 4.2 mmol/L (3.5-5.1) 01/30/17 05:35 Chloride 103 mmol/L (98-107) 01/30/17 05:35 Carbon Dioxide 28 mmol/L (21-32) 01/30/17 05:35 Anion Gap 9 (8-16) 01/30/17 05:35 BUN 51 mg/dL (7-18) H 01/30/17 05:35 Creatinine 1.4 mg/dL (0.55-1.02) H 01/30/17 05:35 Creat Clearance w eGFR 36.37 (>60) 01/30/17 05:35 Random Glucose 129 mg/dL (74-106) H 01/30/17 05:35 Calcium 8.7 mg/dL (8.5-10.1) 01/30/17 05:35 Magnesium 2.3 mg/dL (1.8-2.4) 01/30/17 05:35 Total Bilirubin 0.6 mg/dL (0.2-1.0) 01/30/17 05:35 AST 22 U/L (15-37) D 01/30/17 05:35 ALT 22 U/L (12-78) 01/30/17 05:35 Alkaline Phosphatase 121 U/L (45-117) H 01/30/17 05:35 Creatine Kinase 65 IU/L (26-192) 01/29/17 16:38 Troponin I 1.20 ng/ml (0.00-0.05) H* 01/29/17 16:38 Total Protein 6.6 g/dl (6.4-8.2) 01/30/17 05:35 Albumin 3.2 g/dl (3.4-5.0) L 01/30/17 05:35 Urine Color Ltyellow 01/29/17 01:28 Urine Appearance Clear 01/29/17 01:28 Urine pH 5.0 (5.0-8.0) 01/29/17 01:28 Ur Specific [place] 1.010 (1.005-1.025) 01/29/17 01:28 Urine Protein Negative (NEGATIVE) 01/29/17 01:28 Urine Glucose (UA) Negative (NEGATIVE) 01/29/17 01:28 Urine Ketones Negative (NEGATIVE) 01/29/17 01:28 Urine Blood Negative (NEGATIVE) 01/29/17 01:28 Urine Nitrite Negative (NEGATIVE) 01/29/17 01:28 Urine Bilirubin Negative (NEGATIVE) 01/29/17 01:28 Urine Urobilinogen Negative E.U./dl (0.2-1.0) 01/29/17 01:28 Ur Leukocyte Esterase Negative (NEGATIVE) 01/29/17 01:28 Digoxin 0.6122 ng/ml (0.8-2.0) L 01/29/17 16:38 tele: SR, intermittent svt ecg 1: SVT, 121 bpm (qrs widening likely from underlying IVCD). lateral STD/T wave abnormalities. . ecg 2: sr, first degree avb, nonspecific ivcd, pvc's. LAD lateral STD/T wave abnormalities. (similar to priors) cxr: clear lungs Echo here 01/2017: nl lv size. sev red EF (global). nl rv size, no mention of fn. sev lae, mild-mod as, 1+ ar. well-seated bio mvr. mod tr rvsp 40-50. mod ao dilation. Echo 09/2016: sev lve. lvef 35%. global. nl rv, mild lae, trace-mild ar, mod as, nl bio mvr, mild-mod tr, mild phtn. Echo 02/2016: mod lv dilation, severe LV dysfunction (global). Nl RV size (no mention of function). sev lae. mod-sev . mg 24. mild-mod AR. bioMVR MG 4.3. 1+ mr . mod-sev tr. rvsp 40-50. cath 03/23/14 at [facility]: patent russell to lad, patent svg to om1, patent prior pci in pRCA, mRCA (30-50%), AV continuation 80-90% --> WILL, ISR of pLAD (70-80%), patent D2 stent, TO/ISR of pLCx, TO/ISR OM1. EF 25%. No on pull back. mibi 02/2014: Moderate intensity, moderate size mostly fixed defect of inferior wall consistent with scar with minimal bianca-infarct ischemia. Mild intensity, moderate size reversible defect from mid to base of anterior, anteroseptal, anterolateral browne consistent with mild ischemia. LVEF is severely reduced with global hypokinesis and severely dilated LV. -->sent for cath after this MIBI a/p: 76 yo f hx ICM, CHF (severely reduced LVEF), s/p ICD (single chamber, [employer], placed 07/2013), CAD s/p cabg and prior multiple PCI (cabg 10/2012 at [facility], russell to lad and svg to om), MVR (bio) 10/2012, p-afib/flutter (s/p MAZE and DARIO ligation 10/2012), mod-sev (low flow low gradient?), dm, htn, hld, anemia requiring transfusions here with cp. CP, nstemi: - + troponin, trended up. Nl CK. + exertional angina. ? demand in setting of CKD, RVR vs. symptomatic severe vs. ACS/NSTEMI. Patient high risk, treating as nstemi and with AC. con't ASA. Added plavix. statin. - Peak trop 1.5, nl CK. Plan for transfer to [facility] today for cath +/- dobutamine assessment of aortic valve. Patient previously could not tolerate coumadin due to anemia/transfusions with no clear source --> had held AC based on risk/ benefit evaluation. -she Tolerated DAPT in 2013 so would be ok for WILL if needed. Interventional cardiology aware. -nitro prn for cp -repeat echo here, no signficant change. ICM, severely reduced EF s/p ICD: - Patient on 40 mg of lasix at home. Appears euvolemic, will con't home dosing. -Held KEV on admit for hyperkalemia. Con't toprol for now to suppress RVR. Uptitration as mentioned below. - con't home diuretic dose for now. -Most recent ICD interrogation 11/2016 per office notes. Brief episodes of asx svt. Patient denies shocks. - unclear if moderate or if low-flow, low gradient . No gradient on pullback at 2014 cath. - On review of past echo leaflet motion does not appear severely restricted. Possible aortic valve interrogation along with coronary angiography. cad s/p CABG, mult PCIs (last was WILL to AV continuation/RCA in March 2014): - CP/ACS managment as above. -cont lipitor, bb, asa. added plavix. held acei on admit for hyperkalemia. . p-afib/flutter: -S/p MAZE and DARIO ligation. -In RVR on arrival, now rate controlled in SR -hold digoxin in light of K abnormalities. level good. con't bb, will uptitrate to 75 bid today 01/30 -Could not tolerate coumadin due to anemia requiring frequent transfusions and no clear source. Has DARIO ligation so embolic risk likely low regardless. Cont asa for now. (temporary AC for nstemi as mentioned above). htn: -stable on meds. s/p bio MVR: -recent echo with nl biomvr. anemia with h/o transfusions - hgb at baseline here. Monitor on anti-platelets/AC.
[2017-01-31 11:32] VITALS: BP 117/68; PULSE 116; TEMP 98.7
== END 2017-01-31 11:38 | disposition short-term general hospital (02) | DRG 281 ==
LOC: JER 00:39 → JERBED 05:58 → J4W 17:27
PROVIDERS: ADMIT Internal Medicine; ATTEND Internal Medicine
DX: I21.4 Non-ST elevation (NSTEMI) myocardial infarction (principal); I48.92 Unspecified atrial flutter; I13.0 Hypertensive heart and chronic kidney disease with heart failure and stage 1 through stage 4 chronic kidney disease, or unspecified chronic kidney disease; I25.5 Ischemic cardiomyopathy; I25.10 Atherosclerotic heart disease of native coronary artery without angina pectoris; Z98.61 Coronary angioplasty status; Z95.1 Presence of aortocoronary bypass graft; I48.0 Paroxysmal atrial fibrillation; I35.0 Nonrheumatic aortic (valve) stenosis; D64.9 Anemia, unspecified; R07.9 Chest pain, unspecified; N18.9 Chronic kidney disease, unspecified; I50.9 Heart failure, unspecified
CPT/HCPCS: 36415; 71010-TC; 80048; 80053; 80162; 81003; 82550; 83735; 84484; 85025; 85027; 85610; 85730; 87040; 87086; 93005; 93010; 93306-TC; 99285-25; J1644

== ENCOUNTER 2017-04-05 13:01 | Inpatient (IN) | payer OTHER ==
--- NOTE | 2017-04-05 13:28 | PDOC ---
History of Present Illness - General Chief Complaint: Shortness of Breath Stated Complaint: SOB Time Seen by Provider: 04/05/17 13:23 - History of Present Illness Initial Comments: 75 y/o Female with PMhx of ICM, CHF (EF 31%), s/p ICD (single chamber, [employer], placed 07/2013), CAD s/p cabg and PCI , MVR (bio) 10/2012, p-afib/ flutter (s/p MAZE and DARIO ligation 10/2012), p-svt, dm, htn, hld, and anemia requiring transfusions presenting with SOB, frequent bowel movements, and bilateral lower extremity edema for the past few weeks. She states that the main complaint is the frequent formed bowel movements (up to 10x per day) that are bloody but she has history of occasional GI bleeding. She was previously on Coumadin and much worse GI bleeding but was transitioned to aspirin with gradual improvement of her GI bleed. She has also noticed increasing bilateral LE pitting edema with increasing SOB and increasing nocturnal dyspnea but no change in pillow level or PND. She has been weak and slightly lightheaded over the past few days as her BMs have increased in frequency. Denies cough, chest pain, fevers, chills, nausea, vomiting, hemoptysis, headache, night sweats, or other sick symptoms. PCP: Brandan Card: [place] 04/05/17 13:32 Past History - Past Medical History Allergies/Adverse Reactions: Allergies Allergy/AdvReac Type Severity Reaction Status Date / Time No Known Allergies Allergy Verified 04/05/17 13:03 Home Medications: Ambulatory Orders Magnesium Oxide 400 mg PO DAILY 05/01/14 Aspirin Coated [Ecotrin -] 81 mg PO DAILY #30 tablet.ec 12/21/15 Digoxin [Lanoxin -] 0.125 mg PO DAILY tablet 12/21/15 Pantoprazole Sodium [Protonix] 40 mg PO DAILY 02/26/16 Metoprolol Succinate [Toprol XL -] 50 mg PO BID #60 tab.sr.24h 03/01/16 Potassium Chloride [K-Dur -] 20 meq PO DAILY #0 03/01/16 Clopidogrel Bisulfate [Plavix -] 75 mg PO DAILY tablet 01/30/17 Atorvastatin Ca [Lipitor] 20 mg PO HS 04/05/17 Furosemide [Lasix -] 40 mg PO TID 04/05/17 Anemia: Yes Asthma: Yes Cancer: Yes (uterus) Cardiac Disorders: Yes (A FIB,CABG, PPM, ICD, MVR) CVA: No COPD: No CHF: No Dementia: No Diabetes: Yes GI Disorders: No Disorders: No HTN: Yes Hypercholesterolemia: Yes Liver Disease: No Seizures: No Thyroid Disease: No - Surgical History Abdominal Surgery: No Appendectomy: No Cardiac Surgery: Yes (bypass PACEMAKER) Cholecystectomy: No Lung Surgery: No Orthopedic Surgery: No - Immunization History Immunization Up to Date: No - Psycho/Social/Smoking Cessation Hx Anxiety: No Suicidal Ideation: No Smoking Status: No Smoking History: Never smoked Have you smoked in the past 12 months: No Number of Cigarettes Smoked Daily: 12 If you are a former smoker, when did you quit?: 1995 Information on smoking cessation initiated: No Hx Alcohol Use: No Drug/Substance Use Hx: No Substance Use Type: None Hx Substance Use Treatment: No Review of Systems - Review of Systems Constitutional: No: Chills, Diaphoresis, Fever HEENTM: No: Blurred Vision, Double Vision Respiratory: Yes: Shortness of Breath. No: Cough, Orthopnea Cardiac (ROS): Yes: Edema, Lightheadedness. No: Chest Pain, Palpitations, Syncope ABD/GI: Yes: Other (frequent stools). No: Constipated, Diarrhea, Nausea, Poor Appetite, Vomiting : No: Burning, Dysuria, Flank Pain Integumentary: No: Change in Color, Dryness, Erythema Neurological: No: Headache, Paresthesia *Physical Exam - Vital Signs Last Vital Signs Temp Pulse Resp BP Pulse Ox 98.0 F 129 H 22 104/68 100 04/05/17 13:04 04/05/17 13:04 04/05/17 13:04 04/05/17 13:04 04/05/17 13:04 - Physical Exam General Appearance: Yes: Nourished, Appropriately Dressed. No: Apparent Distress HEENT: positive: EOMI, TANIA (Pupils reactive, but minimally), Normal Voice Neck: positive: Trachea midline, Normal Thyroid, Supple. negative: Tender, Rigid Respiratory/Chest: positive: Lungs Clear, Normal Breath Sounds. negative: Chest Tender, Respiratory Distress, Accessory Muscle Use Cardiovascular: positive: Regular Rhythm, S1, S2, Edema, JVD, Tachycardia. negative: Regular Rate, Murmur Gastrointestinal/Abdominal: positive: Normal Bowel Sounds, Tender (Slightly tender over RUQ hernia that is reducible and ), Flat, Soft Musculoskeletal: positive: Normal Inspection. negative: CVA Tenderness Integumentary: positive: Normal Color, Dry, Warm, Swelling (Bil[place]la LE pitting edema 2+ to the tibial plateau and 1+ to the lower femur. No erythema or warmth.) Neurologic: positive: Fully Oriented, Alert, Normal Mood/Affect ED Treatment Course - LABORATORY CBC & Chemistry Diagram: 04/05/17 14:21 04/05/17 14:21 Medical Decision Making - Medical Decision Making 76 year old female with complicated cardiac history presenting with frequent formed bowel movements, weakness, SOB, and bilateral pitting edema. There are most likely two etiologies at play. The frequent bowel movement history has unclear etiology as it doesn't seem infectious in nature. She has a clear colonoscopy over the past three years and isn't scheduled for another two years. She doesn't have history of hyperthyroidism. She was a previous smoker. Her risk for GI malignancy is increased. The is most concerning for GI malignancy for which full workup can be deferred inb the acute setting. Her SOB and leg swelling is concerning for CHF exacerbation. She also seems to be in Afib with RVR secondary to this CHF exacerbation. 40 IV lasix will be trialed to monitor for response. Will send CBC, CMP, CXR, BNP, and TSH. 04/05/17 14:44 04/05/17 17:20 BNP elevated to 18 K with other labs WNL and dig level therapeutic. Will admit patient to Dr. Gloria Gonzales under tele for CHF exacerbation. Will draw troponin and UA as well. Gave 40 IV lasix with heart rate dropping to 80s, out of RVR. 04/05/17 17:21 04/05/17 17:21 *DC/Admit/Observation/Transfer Diagnosis at time of Disposition: Acute on chronic congestive heart failure - Discharge Dispostion Condition at time of disposition: Stable Admit: Yes - Attestations Physician Attestion: I, Dr. Carmel Mares, attest that this document has been prepared under my direction and personally reviewed by me in its entirety. I further attest, that it accurately reflects all work, treatment, procedures and medical decision -making performed by me. 04/05/17 17:26
--- NOTE | 2017-04-05 14:13 | PDOC ---
Attending Attestation - Resident Resident Name: Carmel Mares - ED Attending Attestation I have performed the following: I have examined & evaluated the patient, The case was reviewed & discussed with the resident, I agree w/resident's findings & plan, Exceptions are as noted - HPI HPI: 04/05/17 14:13 76y F hx of CAD, pAfib, presents with frequent BM x 1 week, off a/c due to hx if GIB, presents with with sob, increased bm, and b/l LE edema for several weeks. Pt denies any diarrhea, abdomnal pain. She also notes she has had increasing sob/orthopnea, desai. no associated cp, cough, f/c, n/v, hemoptysis, leg swelling/pain. lungs clear and pt does not appear to be in any distress abd soft/nontender pts exam as documented by dr. mares although her vitals revealed tachyardia on arrival and on her EKG, on my assessment her HR had improved to approx 90 and was slightly irregular pts labs/cxr c/w chf will treat with lasix will admit for further management - Physicial Exam PE: 04/07/17 16:28 see above - Medical Decision Making 04/07/17 16:28 see above Heart Score/ECG Review - ECG Impressions Comment:: 04/05/17 20:24 Twelve-lead EKG was performed and reviewed by me. Rate of 128 PVCs present No P waves present Left axis deviation Suspect atrial fibrillation with rapid ventricular response
[2017-04-05] MEDS ORDERED: SODIUM CHLORIDE 250 ML IV STA (14:20)
[2017-04-05 14:50] LABS: BASOPHIL 1.3 % (0-2.0); EOSINOPHIL 1.8 % (0-4.5); MCHC 30.3 g/dl (32.0-36.0); MEAN CELL VOLUME 66.1 fl (80-96); MEAN PLT VOLUME 8.7 fl (7.5-11.1); NEUTROPHILS 72.7 % (42.8-82.8); PLATELET COUNT 278 K/MM3 (134-434); RDW 21.7 % (11.6-15.6); WHITE BLOOD COUNT 7.3 K/mm3 (4.0-10.0)
--- NOTE | 2017-04-05 15:03 | EKG ---
Test Reason : Blood Pressure : / mmHG Vent. Rate : 128 BPM Atrial Rate : 075 BPM P-R Int : 000 ms QRS Dur : 134 ms QT Int : 330 ms P-R-T Axes : 000 -89 096 degrees QTc Int : 481 ms ATRIAL FIBRILLATION WITH RAPID VENTRICULAR RESPONSE LEFT AXIS DEVIATION NON-SPECIFIC INTRA-VENTRICULAR CONDUCTION BLOCK ABNORMAL QRS-T ANGLE, CONSIDER PRIMARY T WAVE ABNORMALITY ABNORMAL ECG Confirmed by JAYLEN AVILEZ MD ([id number]) on 04/05/2017 3:03:22 PM Referred By: Confirmed By:JAYLEN AVILEZ MD
[2017-04-05 15:07] LABS: ALBUMIN 3.1 g/dl (3.4-5.0); ANION GAP 11 (8-16); BILIRUBIN,TOTAL 1.2 mg/dL (0.2-1.0); CALCIUM 8.8 mg/dL (8.5-10.1); CO2 28 mmol/L (21-32); CREATININE 1.4 mg/dL (0.55-1.02); GLUCOSE,RANDOM 139 mg/dL (74-106); SGOT/AST 24 U/L (15-37); SGPT/ALT 30 U/L (12-78); TOT PROT 6.8 g/dl (6.4-8.2)
[2017-04-05 15:10] LABS: ALK PHOS 248 U/L (45-117)
[2017-04-05 15:20] LABS: DIGOXIN LEVEL 1.8789 ng/ml (0.8-2.0); THYROID STIMULATING HORMONE 2.18 uIU/ml (0.358-3.74)
[2017-04-05] MEDS ORDERED: FUROSEMIDE 40 MG/4 ML INJECTABLE VIAL IVPUSH ONE (15:52)
[2017-04-05] MEDS ORDERED: FUROSEMIDE 40 MG/4 ML INJECTABLE VIAL ONE (16:12)
[2017-04-05 20:16] LABS: TROPONIN I 0.04 ng/ml (0.00-0.05)
[2017-04-05 21:01] LABS: URINE APPEARANCE SLCLOUDY; URINE BILIRUBIN NEGATIVE (NEGATIVE); URINE BLOOD NEGATIVE (NEGATIVE); URINE COLOR LTYELLOW; URINE GLUCOSE (UA) NEGATIVE (NEGATIVE); URINE KETONE NEGATIVE (NEGATIVE); URINE LEUK ESTERASE TRACE (NEGATIVE); URINE NITRITE NEGATIVE (NEGATIVE); URINE PROTEIN NEGATIVE (NEGATIVE); URINE UROBILINOGEN NEGATIVE mg/dL (0.2-1.0)
[2017-04-05 21:12] LABS: URINE HYALINE CAST 1 /lpf; URINE MUCUS RARE; URINE RBC 1 /hpf (0-3); URINE WBC <1 /hpf (3-5)
[2017-04-05 21:13] LABS: ANISOCYTOSIS 2+; HYPOCHROMIA 2+; MICROCYTOSIS 2+; PLATELET COMMENT2 NO CLUMPING NOTED; PLATELET COMMENT3 NO CLOTTING DETECTED; POIKILOCYTOSIS 2+
[2017-04-05] MEDS ORDERED: METOPROLOL SUCCINATE 50 MG TAB.SR.24H (FP) ONE (22:10)
[2017-04-05] MEDS ORDERED: ATORVASTATIN CA 40 MG TABLET (FP) ONE (22:11)
[2017-04-05] MEDS: ATORVASTATIN CA 20 MG TABLET (FP) PO SCH (23:00)
[2017-04-06 01:21] LABS: TROPONIN I 0.04 ng/ml (0.00-0.05)
[2017-04-06] MEDS ORDERED: FUROSEMIDE 40 MG/4 ML INJECTABLE VIAL ONE (06:05)
[2017-04-06] MEDS: FUROSEMIDE 40 MG/4 ML INJECTABLE VIAL IVPUSH SCH ×2 (06:16→14:59)
[2017-04-06] MEDS: METOPROLOL SUCCINATE 50 MG TAB.SR.24H (FP) PO SCH ×3 (06:43→21:51)
[2017-04-06 06:52] LABS: BASOPHIL 1.1 % (0-2.0); EOSINOPHIL 1.3 % (0-4.5); MCHC 29.9 g/dl (32.0-36.0); MEAN CELL VOLUME 66.7 fl (80-96); MEAN PLT VOLUME 8.8 fl (7.5-11.1); NEUTROPHILS 78.9 % (42.8-82.8); PLATELET COUNT 254 K/MM3 (134-434); RDW 21.9 % (11.6-15.6); WHITE BLOOD COUNT 8.3 K/mm3 (4.0-10.0)
[2017-04-06 07:19] LABS: ALBUMIN 3.1 g/dl (3.4-5.0); ANION GAP 9 (8-16); CALCIUM 8.8 mg/dL (8.5-10.1); CO2 28 mmol/L (21-32); CREATININE 1.3 mg/dL (0.55-1.02); GLUCOSE,RANDOM 136 mg/dL (74-106); SGOT/AST 28 U/L (15-37); SGPT/ALT 31 U/L (12-78)
[2017-04-06 07:21] LABS: ALK PHOS 292 U/L (45-117); BILIRUBIN,TOTAL 1.3 mg/dL (0.2-1.0); FREE T4 1.55 ng/dl (0.76-1.46)
[2017-04-06 08:21] LABS: MCH 19.9 pg (25.7-33.7)
[2017-04-06] MEDS ORDERED: CLOPIDOGREL BISULFATE 75 MG TABLET (FP) PO SCH (10:00)
--- NOTE | 2017-04-06 10:47 | HP ---
Admitting History and Physical - Primary Care Physician PCP: Aldo Gipson - Admission Chief Complaint: SOB, leg edema History of Present Illness: ER HISTORY - History of Present Illness Initial Comments: 75 y/o Female with PMhx of ICM, CHF (EF 31%), s/p ICD (single chamber, [employer], placed 07/2013), CAD s/p cabg and PCI , MVR (bio) 10/2012, p-afib/ flutter (s/p MAZE and DARIO ligation 10/2012), p-svt, dm, htn, hld, and anemia requiring transfusions presenting with SOB, frequent bowel movements, and bilateral lower extremity edema for the past few weeks. She states that the main complaint is the frequent formed bowel movements (up to 10x per day) that are bloody but she has history of occasional GI bleeding. She was previously on Coumadin and much worse GI bleeding but was transitioned to aspirin with gradual improvement of her GI bleed. She has also noticed increasing bilateral LE pitting edema with increasing SOB and increasing nocturnal dyspnea but no change in pillow level or PND. She has been weak and slightly lightheaded over the past few days as her BMs have increased in frequency. Denies cough, chest pain, fevers, chills, nausea, vomiting, hemoptysis, headache, night sweats, or other sick symptoms. PCP: Brandan Card: [place] Pt seen by me on the floors Noted above history Pt was recently admitted here for chest pain , SOB and was transferred to [facility] for cath-- stent placed at that time. Pt has been having SOB on ambulation for the last 3 weeks with leg edema. Not on Oxygen at home Denies chest pain No PND, orthopnea Seen by basic combatant swimmer in the office about a week ago, on Lasix PO tid without relief. Received Lasix in ER Feeling better today compared to yesterday. History Source: Patient, Family Member Limitations to Obtaining History: No Limitations - Past Medical History Cardiovascular: Yes: AFIB, CAD (s/p CABG-- 2012, stent in 01/2017), CHF (s/p AICD ), HTN Gastrointestinal: No: GI Bleed Heme/Onc: Yes: Anemia, Cancer (vaginal cancer) Endocrine: Yes: Diabetes Mellitus - Past Surgical History Past Surgical History: Yes: CABG, Permanent Pacemaker - Smoking History Smoking history: Never smoked Have you smoked in the past 12 months: No Aproximately how many cigarettes per day: 12 If you are a former smoker, when did you quit?: 1995 - Alcohol/Substance Use Hx Alcohol Use: No - Social History History of Recent Travel: No Home Medications - Allergies Allergies/Adverse Reactions: Allergies Allergy/AdvReac Type Severity Reaction Status Date / Time No Known Allergies Allergy Verified 04/05/17 13:03 - Home Medications Home Medications: Ambulatory Orders Magnesium Oxide 400 mg PO DAILY 05/01/14 Aspirin Coated [Ecotrin -] 81 mg PO DAILY #30 tablet.ec 12/21/15 Digoxin [Lanoxin -] 0.125 mg PO DAILY tablet 12/21/15 Pantoprazole Sodium [Protonix] 40 mg PO DAILY 02/26/16 Metoprolol Succinate [Toprol XL -] 50 mg PO BID #60 tab.sr.24h 03/01/16 Potassium Chloride [K-Dur -] 20 meq PO DAILY #0 03/01/16 Clopidogrel Bisulfate [Plavix -] 75 mg PO DAILY tablet 01/30/17 Atorvastatin Ca [Lipitor] 20 mg PO HS 04/05/17 Furosemide [Lasix -] 40 mg PO TID 04/05/17 Review of Systems - Review of Systems Constitutional: denies: Chills, Fever, Loss of Appetite, Weakness Cardiovascular: reports: Edema, Shortness of Breath. denies: Chest Pain, Palpitations Respiratory: reports: SOB on Exertion. denies: Cough, Orthopnea, PND Physical Examination Vital Signs: Vital Signs Temperature 97.8 F 04/06/17 06:33 Pulse Rate 83 04/06/17 08:02 Respiratory Rate 18 04/06/17 08:02 Blood Pressure 109/80 04/06/17 08:02 O2 Sat by Pulse Oximetry (%) 100 04/06/17 08:02 Constitutional: Yes: No Distress, Calm Cardiovascular: Yes: Pulse Irregular Respiratory: Yes: Diminished, Rales (bases B/L), Other (chest wall scar-- sternal scar) Gastrointestinal: Yes: Normal Bowel Sounds, Soft, Abdomen, Obese. No: Distention, Tenderness Edema: Yes Edema: LLE: 2+, RLE: 2+ Psychiatric: Yes: Alert, Oriented Labs: CBC, BMP 04/06/17 06:40 04/06/17 06:40 Imaging - Results Chest X-ray: Image Reviewed (congested B/L) EKG: Image Reviewed (AFIB with RVR) Problem List - Problems (1) Acute on chronic congestive heart failure Code(s): I50.9 - HEART FAILURE, UNSPECIFIED Qualifiers: Congestive heart failure type: systolic Qualified Code(s): I50.23 - Acute on chronic systolic (congestive) heart failure (2) Afib Code(s): I48.91 - UNSPECIFIED ATRIAL FIBRILLATION Qualifiers: Atrial fibrillation type: persistent Qualified Code(s): I48.1 - Persistent atrial fibrillation (3) Anemia Code(s): D64.9 - ANEMIA, UNSPECIFIED Qualifiers: Anemia type: other cause (4) CAD (coronary artery disease) of artery bypass graft Code(s): I25.810 - ATHEROSCLEROSIS OF CABG W/O ANGINA PECTORIS Qualifiers: [place] vs. transplanted heart: [place] heart Associated angina: without angina Qualified Code(s): I25.810 - Atherosclerosis of coronary artery bypass graft(s) without angina pectoris Assessment/Plan PLAN Diurese pt with IV lasix BID check daily weights Pt is symptomatically better Monitor renal function while on Lasix OOB daily Cardiology eval noted Appears that her family gives her salty snacks-- maybe a cause for exacerbation- - advised her son at bedside to restrict salt completely here continue with meds Pt not on Coumadin due to anemia , GI bleeding continue with ASA DVT prophylaxis-- SCD
--- NOTE | 2017-04-06 11:20 | CON.CARD ---
Cardiology Consult (text) - Consultation Consultation Note: cc: cp hpi: 76 yo f hx ICM, CHF (severely reduced LVEF), s/p ICD (single chamber, [employer], placed 07/2013), CAD s/p cabg and prior multiple PCI (cabg 2012 at [facility], russell to lad and svg to om) (cath 02/02/17: patent russell to lad, patent svg to om1, ISR mrca-->ptca; old isr plad/plcx/om1) , MVR (bio) 10/2012, p-afib/flutter (s/p MAZE and DARIO ligation 10/2012), mod-sev , dm, htn, hld, anemia requiring transfusions here with sob/le edema. Had been taking lasix 40 bid at home but started to develop le edema and desai past few days. No cp, palps , dizzy, loc, pnd, orthopnea. Got iv lasix in er and already feeling a little better. Sees me for cardio. pmh: per hpi psh: cabd, mvr, icd social: former tobacco, no etoh or illicits fam: mother with unknown heart problems, daughter with unknown open heart surgery. ros: per hpi; no f/c/s, nvd, cough, nasal congestion, rash, wt loss, h/a, vision changes, muscle pains meds: Home Medications Medication Instructions Recorded Magnesium Oxide 400 mg PO DAILY 05/01/14 Aspirin Coated [Ecotrin -] 81 mg PO DAILY #30 tablet.ec 12/21/15 Digoxin [Lanoxin -] 0.125 mg PO DAILY tablet 12/21/15 Pantoprazole Sodium [Protonix] 40 mg PO DAILY 02/26/16 Metoprolol Succinate [Toprol XL -] 50 mg PO BID #60 tab.sr.24h 03/01/16 Potassium Chloride [K-Dur -] 20 meq PO DAILY #0 03/01/16 Clopidogrel Bisulfate [Plavix -] 75 mg PO DAILY tablet 01/30/17 Atorvastatin Ca [Lipitor] 20 mg PO HS 04/05/17 Furosemide [Lasix -] 40 mg PO TID 04/05/17 pe: Vital Signs Period Temp Pulse Resp BP Sys/Peterson Pulse Ox Last 24 Hr 97.8 F-98.2 F 76-129 16-22 104-128/57-80 98-100 nad, calm +JVD fla rrr s1s2 2/6 murmur at sternal border. bibasilar crackles, nl eff aaox3 1-2+ le edema bl, no c/c abd nt nd pos bs no jaundice diaphoresis pos dp pt, no carotid bruits Laboratory Last Values WBC 8.3 K/mm3 (4.0-10.0) 04/06/17 06:40 RBC 4.71 M/mm3 (3.60-5.2) 04/06/17 06:40 Hgb 9.4 GM/dL (10.7-15.3) L 04/06/17 06:40 Hct 31.4 % (32.4-45.2) L 04/06/17 06:40 MCV 66.7 fl (80-96) L 04/06/17 06:40 MCH 19.9 pg (25.7-33.7) L 04/06/17 06:40 MCHC 29.9 g/dl (32.0-36.0) L 04/06/17 06:40 RDW 21.9 % (11.6-15.6) H 04/06/17 06:40 Plt Count 254 K/MM3 (134-434) 04/06/17 06:40 MPV 8.8 fl (7.5-11.1) 04/06/17 06:40 Neutrophils % 78.9 % (42.8-82.8) 04/06/17 06:40 Lymphocytes % 9.8 % (8-40) 04/06/17 06:40 Monocytes % 8.9 % (3.8-10.2) 04/06/17 06:40 Eosinophils % 1.3 % (0-4.5) 04/06/17 06:40 Basophils % 1.1 % (0-2.0) 04/06/17 06:40 Hypochromia 2+ 04/05/17 14:21 Platelet Comment No clumping noted 04/05/17 14:21 Poikilocytosis 2+ 04/05/17 14:21 Anisocytosis 2+ 04/05/17 14:21 Microcytosis 2+ 04/05/17 14:21 Sodium 136 mmol/L (136-145) 04/06/17 06:40 Potassium 4.2 mmol/L (3.5-5.1) 04/06/17 06:40 Chloride 99 mmol/L (98-107) 04/06/17 06:40 Carbon Dioxide 28 mmol/L (21-32) 04/06/17 06:40 Anion Gap 9 (8-16) 04/06/17 06:40 BUN 38 mg/dL (7-18) H 04/06/17 06:40 Creatinine 1.3 mg/dL (0.55-1.02) H 04/06/17 06:40 Creat Clearance w eGFR 39.61 (>60) 04/06/17 06:40 Random Glucose 136 mg/dL (74-106) H 04/06/17 06:40 Calcium 8.8 mg/dL (8.5-10.1) 04/06/17 06:40 Magnesium 2.0 mg/dL (1.8-2.4) 04/06/17 06:40 Total Bilirubin 1.3 mg/dL (0.2-1.0) H 04/06/17 06:40 AST 28 U/L (15-37) 04/06/17 06:40 ALT 31 U/L (12-78) 04/06/17 06:40 Alkaline Phosphatase 292 U/L (45-117) H 04/06/17 06:40 Creatine Kinase 38 IU/L (26-192) 04/06/17 00:30 Troponin I 0.04 ng/ml (0.00-0.05) 04/06/17 00:30 B-Natriuretic Peptide 98344.25 pg/ml (5-450) H 04/05/17 14:21 Total Protein 7.0 g/dl (6.4-8.2) 04/06/17 06:40 Albumin 3.1 g/dl (3.4-5.0) L 04/06/17 06:40 TSH 2.18 uIU/ml (0.358-3.74) 04/05/17 14:21 Free T4 1.55 ng/dl (0.76-1.46) H 04/06/17 06:40 Urine Color Ltyellow 04/05/17 18:02 Urine Appearance Slcloudy 04/05/17 18:02 Urine pH 5.0 (5.0-8.0) 04/05/17 18:02 Ur Specific [place] <= 1.005 (1.005-1.025) 04/05/17 18:02 Urine Protein Negative (NEGATIVE) 04/05/17 18:02 Urine Glucose (UA) Negative (NEGATIVE) 04/05/17 18:02 Urine Ketones Negative (NEGATIVE) 04/05/17 18:02 Urine Blood Negative (NEGATIVE) 04/05/17 18:02 Urine Nitrite Negative (NEGATIVE) 04/05/17 18:02 Urine Bilirubin Negative (NEGATIVE) 04/05/17 18:02 Urine Urobilinogen Negative mg/dL (0.2-1.0) 04/05/17 18:02 Ur Leukocyte Esterase Trace (NEGATIVE) 04/05/17 18:02 Urine RBC 1 /hpf (0-3) 04/05/17 18:02 Urine WBC <1 /hpf (3-5) 04/05/17 18:02 Ur Epithelial Cells Rare /hpf (FEW) 04/05/17 18:02 Hyaline Casts 1 /lpf 04/05/17 18:02 Urine Mucus Rare 04/05/17 18:02 Digoxin 1.8789 ng/ml (0.8-2.0) 04/05/17 14:21 Blood Type O POSITIVE 04/05/17 14:21 Antibody Screen Negative 04/05/17 14:21 ecg 04/05/17: afib with rvr 128, nonspec IVCD, no sig change prior cxr: chf echo 01/2017: sev red lvef, global hk, nl lv size, nl rv size, sev lae, mild-mod as, mild ar, nl bio mvr, mod tr, rvsp 40-50, mod ao dilatation Echo 09/2016: sev lve. lvef 35%. global. nl rv, mild lae, trace-mild ar, mod as, nl bio mvr, mild-mod tr, mild phtn. Echo 02/2016: mod lv dilation, severe LV dysfunction (global). Nl RV size (no mention of function). sev lae. mod-sev . mg 24. mild-mod AR. bioMVR MG 4.3. 1+ mr . mod-sev tr. rvsp 40-50. echo 07/2014: severely reduced lvef (25%), severe global hypo, mod dilated LV, normal RV s/f, mod lae, normal functioning bioprosthetic MVR, mild , trace ar , mild/mod tr, rvsp 30-40. Echo 12/2012: sev decreased LVEF, mod dilated LV, nl rv size/fcn, mod dil la, mild-mod dil ra, trace mr, mod-sev tr, rvsp 37, mod-sev aortic sclerosis with mild-mod cath 03/23/14 at [facility]: patent russell to lad, patent svg to om1, patent prior pci in pRCA, mRCA (30-50%), AV continuation 80-90% --> WILL, ISR of pLAD (70-80%), patent D2 stent, TO/ISR of pLCx, TO/ISR OM1. EF 25%. No on pull back. mibi 02/2014: Moderate intensity, moderate size mostly fixed defect of inferior wall consistent with scar with minimal biacna-infarct ischemia. Mild intensity, moderate size reversible defect from mid to base of anterior, anteroseptal, anterolateral browne consistent with mild ischemia. LVEF is severely reduced with global hypokinesis and severely dilated LV. -->sent for cath after this MIBI a/p: 76 yo f hx ICM, CHF (severely reduced LVEF), s/p ICD (single chamber, [employer], placed 07/2013), CAD s/p cabg and prior multiple PCI (cabg 2012 at [facility], russell to lad and svg to om) (cath 02/02/17: patent russell to lad, patent svg to om1, ISR mrca-->ptca; old isr plad/plcx/om1) , MVR (bio) 10/2012, p-afib/flutter (s/p MAZE and DARIO ligation 10/2012), mod-sev , dm, htn, hld, anemia requiring transfusions here with sob/le edema. acute systolic chf: -pt here with vol overload/chf -cont lasix 40 iv bid and monitor daily wts, lytes, cr -cont home bb -not on acei 2/2 to hyperkalemia and low bp in past -was on lasix 40 bid at home, will have to increase to 80 bid or try torsemide upon dc -Most recent ICD interrogation 11/2016 per office notes. Brief episodes of asx svt. Patient denies shocks. : -recent dobutamine studies at [facility] showed mod-sev as. She was seen by tavr team but determined she was not a candidate for tavr since her prior mvr was encroaching into lvot and was too close to av. -given her comorbidities she is very high risk for repeat open hear surgery so will have to manage with diuretics as doing cad s/p CABG, mult PCIs: -no signs acs, ce's neg x2 -cont lipitor, bb, asa. -after recent ptca in 01/2017 no further cp, plavix stopped after 1 month post PTCA, cont asa 81 p-afib/flutter: -S/p MAZE and DARIO ligation. -In RVR on arrival likely from chf, now rate controlled, no need for tele, can admit to regular floor -cont bb, dig (will check level) -Could not tolerate coumadin due to anemia requiring frequent transfusions and no clear source. Has DARIO ligation so embolic risk likely low regardless. Cont asa for now. htn: -stable on home meds. runs low. s/p bio MVR: -recent echo with nl bio mvr. anemia with h/o transfusions - hgb at baseline here.
[2017-04-06 11:26] LABS: CPK 36 IU/L (26-192)
[2017-04-06 11:27] LABS: TROPONIN I 0.03 ng/ml (0.00-0.05)
[2017-04-06 12:37] VITALS: BMI 22.2
[2017-04-06] MEDS: DIGOXIN 0.125 MG TABLET (FP) PO SCH (12:42)
[2017-04-06] MEDS: MAGNESIUM OXIDE 400 MG TABLET (FP) PO SCH (12:43)
[2017-04-06] MEDS: POTASSIUM CHLORIDE TABS 20 MEQ TABLET.ER (FP) PO SCH (12:43)
[2017-04-06] MEDS: ASPIRIN COATED 81 MG TABLET.EC PO SCH (12:43)
[2017-04-06] MEDS: PANTOPRAZOLE 40 MG TABLET (FP) PO SCH (12:43)
[2017-04-06] MEDS: ATORVASTATIN CA 20 MG TABLET (FP) PO SCH (21:51)
[2017-04-06] MEDS: ACETAMINOPHEN 325 MG TABLET (FP) PO PRN (21:53)
[2017-04-07] MEDS: INSULIN SLIDING SCALE (NOVOLOG) 1 VIAL SQ SCH ×2 (06:36→17:30)
[2017-04-07] MEDS: metFORMIN HCL 500 MG TABLET (FP) PO SCH ×2 (06:36→17:30)
[2017-04-07] MEDS: FUROSEMIDE 40 MG/4 ML INJECTABLE VIAL IVPUSH SCH ×2 (06:36→13:26)
--- NOTE | 2017-04-07 08:38 | PN ---
Progress Note, Physician Chief Complaint: chf History of Present Illness: less sob today, legs less swollen no palpitations, syncope - Current Medication List Current Medications: Active Medications Acetaminophen (Tylenol -) 650 mg PO Q4H PRN PRN Reason: FEVER OR PAIN Last Admin: 04/06/17 21:53 Dose: 650 mg Aspirin (Ecotrin -) 81 mg PO DAILY [facility] Last Admin: 04/06/17 12:43 Dose: 81 mg Atorvastatin Calcium (Lipitor -) 20 mg PO HS [facility] Last Admin: 04/06/17 21:51 Dose: 20 mg Digoxin (Lanoxin -) 0.125 mg PO DAILY [facility] Last Admin: 04/06/17 12:42 Dose: 0.125 mg Furosemide (Lasix Injection -) 40 mg IVPUSH BID@0600,1400 [facility] Last Admin: 04/07/17 06:36 Dose: 40 mg Insulin Aspart (Novolog Vial Sliding Scale -) 1 vial SQ BIDAC [facility] PRN Reason: Protocol Last Admin: 04/07/17 06:36 Dose: Not Given Magnesium Oxide (Mag-Ox -) 400 mg PO DAILY [facility] Last Admin: 04/06/17 12:43 Dose: 400 mg Metformin HCl (Glucophage -) 500 mg PO BID@0700,1630 [facility] Last Admin: 04/07/17 06:36 Dose: 500 mg Metoprolol Succinate (Toprol Xl -) 50 mg PO BID [facility] Last Admin: 04/06/17 21:51 Dose: Not Given Pantoprazole Sodium (Protonix -) 40 mg PO DAILY [facility] Last Admin: 04/06/17 12:43 Dose: 40 mg Potassium Chloride (K-Dur -) 20 meq PO DAILY [facility] Last Admin: 04/06/17 12:43 Dose: 20 meq - Objective Vital Signs: Vital Signs Temperature 97.8 F 04/07/17 06:00 Pulse Rate 87 04/07/17 06:00 Respiratory Rate 18 04/07/17 06:00 Blood Pressure 121/61 04/07/17 06:00 O2 Sat by Pulse Oximetry (%) 100 04/06/17 21:00 Constitutional: Yes: Well Nourished, No Distress, Calm Cardiovascular: Yes: Regular Rate and Rhythm, JVD, S1, S2. No: Gallop, Murmur Respiratory: Yes: Regular (decr diffusely), Diminished (moreso at R base). No: Rales, Wheezes Extremities: No: Cold Edema: Yes (1-2+ pretib) Neurological: Yes: Alert, Oriented Psychiatric: No: Agitated Assessment/Plan cxr: chf Echo 01/2017: sev red lvef, global hk, nl lv size, nl rv size, sev lae, mild-mod as, mild ar, nl bio mvr, mod tr, rvsp 40-50, mod ao dilatation cath 03/23/14 at [facility]: patent russell to lad, patent svg to om1, patent prior pci in pRCA, mRCA (30-50%), AV continuation 80-90% --> WILL, ISR of pLAD (70-80%), patent D2 stent, TO/ISR of pLCx, TO/ISR OM1. EF 25%. No on pull back. mibi 02/2014: Moderate intensity, moderate size mostly fixed defect of inferior wall consistent with scar with minimal bianca-infarct ischemia. Mild intensity, moderate size reversible defect from mid to base of anterior, anteroseptal, anterolateral browne consistent with mild ischemia. LVEF is severely reduced with global hypokinesis and severely dilated LV. -->sent for cath after this MIBI a/p: 76 yo f hx ICM, CHF (severely reduced LVEF), s/p ICD (single chamber, [employer], placed 07/2013), CAD s/p cabg and prior multiple PCI (cabg 2012 at [facility], russell to lad and svg to om) (cath 02/02/17: patent russell to lad, patent svg to om1, ISR mrca-->ptca; old isr plad/plcx/om1) , MVR (bio) 10/2012, p-afib/flutter (s/p MAZE and DARIO ligation 10/2012), mod-sev , dm, htn, hld, anemia requiring transfusions here with sob/le edema. acute systolic chf: -pt here with vol overload/chf -BNP 18K (prior range 2K-5K) -wt was 139 here in 02/03. 125 on 04/06, 146 on 04/07--erroneous value, ? which -given subjective improvement in sob and edema, will cont same lasix for now ( 40 iv bid) -monitor wt trend (hope for accuracy), sx's -cont home bb -not on acei 2/2 to hyperkalemia and low bp in past -was on lasix 40 bid at home, will have to increase to 80 bid or try torsemide upon dc -s/p ICD--routine interrogation in office per prior schedule mod-severe : -recent dobutamine studies at [facility] showed mod-sev as. She was seen by tavr team but determined she was not a candidate for tavr since her prior mvr was encroaching into lvot. -(no audible murmur on exam--??) -given her comorbidities she is very high risk for repeat open heart surgery so will have to manage with diuretics as doing cad s/p CABG, mult PCIs: -no ischemic ecg changes here, ce's neg x2 -cont lipitor, bb, asa. -after recent ptca in 01/2017 no further cp, plavix stopped after 1 month post PTCA, cont asa 81 p-afib/flutter: -S/p MAZE and DARIO ligation. -In RVR on arrival this time, likely driven by her acute chf decompensation-- now rate controlled -cont bb, dig (will check level) -Could not tolerate coumadin due to anemia requiring frequent transfusions and no clear source. -give h/o DARIO ligation, can consider [facility]LL[facility] or CTA at [facility] to look for residual flow, and possible [facility] if flow is demonstrated--can be orchestrated by EP group there. defer to outpt cardiology f/u (not an acute issue) -ASA only for now, as per prior tx plan htn: -stable on home meds (bp often runs low side) s/p bio MVR: -recent echo with nl bio mvr fxn. h/o anemia with h/o transfusions - hgb at baseline here. - monitor trend (on ASA only, as above)
[2017-04-07 09:01] LABS: EOSINOPHIL 1.7 % (0-4.5); MCH 20.1 pg (25.7-33.7); MCHC 30.2 g/dl (32.0-36.0); MEAN CELL VOLUME 66.7 fl (80-96); MEAN PLT VOLUME 9.2 fl (7.5-11.1); NEUTROPHILS 71.7 % (42.8-82.8); PLATELET COUNT 336 K/MM3 (134-434); RDW 21.7 % (11.6-15.6); WHITE BLOOD COUNT 8.1 K/mm3 (4.0-10.0)
[2017-04-07 09:11] LABS: ANION GAP 10 (8-16); BILIRUBIN,TOTAL 1.3 mg/dL (0.2-1.0); CALCIUM 9.3 mg/dL (8.5-10.1); CO2 31 mmol/L (21-32); CREATININE 1.3 mg/dL (0.55-1.02); GLUCOSE,RANDOM 119 mg/dL (74-106); SGOT/AST 25 U/L (15-37); SGPT/ALT 31 U/L (12-78); TOT PROT 6.7 g/dl (6.4-8.2)
[2017-04-07 09:12] LABS: ALK PHOS 276 U/L (45-117)
[2017-04-07] MEDS: METOPROLOL SUCCINATE 50 MG TAB.SR.24H (FP) PO SCH ×2 (10:30→21:50)
[2017-04-07] MEDS: DIGOXIN 0.125 MG TABLET (FP) PO SCH (10:30)
[2017-04-07] MEDS: PANTOPRAZOLE 40 MG TABLET (FP) PO SCH (10:30)
[2017-04-07] MEDS: POTASSIUM CHLORIDE TABS 20 MEQ TABLET.ER (FP) PO SCH (10:30)
[2017-04-07] MEDS: ASPIRIN COATED 81 MG TABLET.EC PO SCH (10:31)
[2017-04-07] MEDS: MAGNESIUM OXIDE 400 MG TABLET (FP) PO SCH (10:31)
--- NOTE | 2017-04-07 10:41 | PN ---
Progress Note, Physician Chief Complaint: feels ok today does not appear to be SOB chest pain - Current Medication List Current Medications: Active Medications Acetaminophen (Tylenol -) 650 mg PO Q4H PRN PRN Reason: FEVER OR PAIN Last Admin: 04/06/17 21:53 Dose: 650 mg Aspirin (Ecotrin -) 81 mg PO DAILY [facility] Last Admin: 04/07/17 10:31 Dose: 81 mg Atorvastatin Calcium (Lipitor -) 20 mg PO HS [facility] Last Admin: 04/06/17 21:51 Dose: 20 mg Digoxin (Lanoxin -) 0.125 mg PO DAILY [facility] Last Admin: 04/07/17 10:30 Dose: 0.125 mg Furosemide (Lasix Injection -) 40 mg IVPUSH BID@0600,1400 [facility] Last Admin: 04/07/17 06:36 Dose: 40 mg Insulin Aspart (Novolog Vial Sliding Scale -) 1 vial SQ BIDAC [facility] PRN Reason: Protocol Last Admin: 04/07/17 06:36 Dose: Not Given Magnesium Oxide (Mag-Ox -) 400 mg PO DAILY [facility] Last Admin: 04/07/17 10:31 Dose: 400 mg Metformin HCl (Glucophage -) 500 mg PO BID@0700,1630 [facility] Last Admin: 04/07/17 06:36 Dose: 500 mg Metoprolol Succinate (Toprol Xl -) 50 mg PO BID [facility] Last Admin: 04/07/17 10:30 Dose: 50 mg Pantoprazole Sodium (Protonix -) 40 mg PO DAILY [facility] Last Admin: 04/07/17 10:30 Dose: 40 mg Potassium Chloride (K-Dur -) 20 meq PO DAILY [facility] Last Admin: 04/07/17 10:30 Dose: 20 meq - Objective Vital Signs: Vital Signs Temperature 97.8 F 04/07/17 06:00 Pulse Rate 88 04/07/17 10:30 Respiratory Rate 18 04/07/17 06:00 Blood Pressure 121/61 04/07/17 06:00 O2 Sat by Pulse Oximetry (%) 100 04/06/17 21:00 Constitutional: Yes: No Distress Cardiovascular: Yes: Regular Rate and Rhythm, Murmur Respiratory: Yes: Diminished, Rales (bases) Gastrointestinal: Yes: Normal Bowel Sounds, Soft, Abdomen, Obese. No: Distention, Tenderness Edema: Yes (decreased) Edema: LLE: 2+, RLE: 2+ Psychiatric: Yes: Alert, Oriented Labs: CBC, BMP 04/07/17 08:00 04/07/17 08:00 Problem List - Problems (1) Acute on chronic congestive heart failure Code(s): I50.9 - HEART FAILURE, UNSPECIFIED Qualifiers: Congestive heart failure type: systolic Qualified Code(s): I50.23 - Acute on chronic systolic (congestive) heart failure (2) Afib Code(s): I48.91 - UNSPECIFIED ATRIAL FIBRILLATION Qualifiers: Atrial fibrillation type: persistent Qualified Code(s): I48.1 - Persistent atrial fibrillation (3) Anemia Code(s): D64.9 - ANEMIA, UNSPECIFIED Qualifiers: Anemia type: other cause (4) CAD (coronary artery disease) of artery bypass graft Code(s): I25.810 - ATHEROSCLEROSIS OF CABG W/O ANGINA PECTORIS Qualifiers: [place] vs. transplanted heart: [place] heart Associated angina: without angina Qualified Code(s): I25.810 - Atherosclerosis of coronary artery bypass graft(s) without angina pectoris Assessment/Plan PLAN Diurese pt with IV lasix BID renal function stable check daily weights-- weight documented today not accurate-- needs more accurate weight check !! clinically better legts-- decreased edema Pt is symptomatically better OOB daily Pt not on Coumadin due to anemia , GI bleeding continue with ASA DVT prophylaxis-- SCD
[2017-04-07] MEDS ORDERED: INSULIN (NOVOLOG) ASPART 100 UNITS/ML 10ML VIAL ONE (17:29)
[2017-04-07] MEDS: ATORVASTATIN CA 20 MG TABLET (FP) PO SCH (21:50)
[2017-04-08] MEDS: FUROSEMIDE 40 MG/4 ML INJECTABLE VIAL IVPUSH SCH (06:29)
[2017-04-08] MEDS: INSULIN SLIDING SCALE (NOVOLOG) 1 VIAL SQ SCH ×2 (06:29→17:43)
[2017-04-08] MEDS: metFORMIN HCL 500 MG TABLET (FP) PO SCH ×2 (06:29→17:43)
[2017-04-08 09:20] LABS: ANION GAP 8 (8-16); CO2 33 mmol/L (21-32); CREATININE 1.3 mg/dL (0.55-1.02); GLUCOSE,RANDOM 125 mg/dL (74-106)
[2017-04-08] MEDS ORDERED: FUROSEMIDE 40 MG/4 ML INJECTABLE VIAL IVPUSH SCH ×2 (09:45→14:00)
--- NOTE | 2017-04-08 09:48 | PN ---
Progress Note, Physician Chief Complaint: chf History of Present Illness: remains sob; no cp, palpitations. abd very distended this am, no vomiting or constipation ex cigs - Current Medication List Current Medications: Active Medications Acetaminophen (Tylenol -) 650 mg PO Q4H PRN PRN Reason: FEVER OR PAIN Last Admin: 04/06/17 21:53 Dose: 650 mg Aspirin (Ecotrin -) 81 mg PO DAILY [facility] Last Admin: 04/07/17 10:31 Dose: 81 mg Atorvastatin Calcium (Lipitor -) 20 mg PO HS [facility] Last Admin: 04/07/17 21:50 Dose: 20 mg Digoxin (Lanoxin -) 0.125 mg PO DAILY [facility] Last Admin: 04/07/17 10:30 Dose: 0.125 mg Enoxaparin Sodium (Lovenox -) 30 mg SQ DAILY [facility] Furosemide (Lasix Injection -) 80 mg IVPUSH BID@0600,1400 [facility] Insulin Aspart (Novolog Vial Sliding Scale -) 1 vial SQ BIDAC [facility] PRN Reason: Protocol Last Admin: 04/08/17 06:29 Dose: Not Given Magnesium Oxide (Mag-Ox -) 400 mg PO DAILY [facility] Last Admin: 04/07/17 10:31 Dose: 400 mg Metformin HCl (Glucophage -) 500 mg PO BID@0700,1630 [facility] Last Admin: 04/08/17 06:29 Dose: 500 mg Metoprolol Succinate (Toprol Xl -) 50 mg PO BID [facility] Last Admin: 04/07/17 21:50 Dose: 50 mg Pantoprazole Sodium (Protonix -) 40 mg PO DAILY [facility] Last Admin: 04/07/17 10:30 Dose: 40 mg Potassium Chloride (K-Dur -) 20 meq PO DAILY [facility] Last Admin: 04/07/17 10:30 Dose: 20 meq - Objective Vital Signs: Vital Signs Temperature 98.5 F 04/08/17 06:00 Pulse Rate 83 04/08/17 06:00 Respiratory Rate 18 04/08/17 06:00 Blood Pressure 133/44 04/08/17 06:00 O2 Sat by Pulse Oximetry (%) 98 04/07/17 21:00 Constitutional: Yes: No Distress, Calm Eyes: No: Sclera Icterus HENT: No: Nasal Congestion Cardiovascular: Yes: Regular Rate and Rhythm, JVD, S1, S2, Other (PMI non diplaced). No: Gallop, Murmur Respiratory: Yes: Diminished (R base). No: Accessory Muscle Use, Rales, Wheezes Gastrointestinal: Yes: Normal Bowel Sounds, Soft. No: Tenderness Musculoskeletal: Yes: Other (No kyphosis) Extremities: No: Cold Edema: Yes (1+ pretibs) Integumentary: No: Jaundice Neurological: Yes: Alert, Oriented (x3) Psychiatric: No: Agitated Labs: CBC, BMP 04/07/17 08:00 04/08/17 07:59 Assessment/Plan cxr: chf Echo 01/2017: sev red lvef, global hk, nl lv size, nl rv size, sev lae, mild-mod as, mild ar, nl bio mvr, mod tr, rvsp 40-50, mod ao dilatation cath 03/23/14 [place] [facility] [place] russell to lad, patent svg to om1, patent prior pci in pRCA, mRCA (30-50%), AV continuation 80-90% --> WILL, ISR of pLAD (70-80%), patent D2 stent, TO/ISR of pLCx, TO/ISR OM1. EF 25%. No on pull back. mibi 02/2014: Moderate intensity, moderate size mostly fixed defect of inferior wall consistent with scar with minimal bianca-infarct ischemia. Mild intensity, moderate size reversible defect from mid to base of anterior, anteroseptal, anterolateral browne consistent with mild ischemia. LVEF is severely reduced with global hypokinesis and severely dilated LV. -->sent for cath after this MIBI a/p: 76 yo f hx ICM, CHF (severely reduced LVEF), s/p ICD (single chamber, [employer], placed 07/2013), CAD s/p cabg and prior multiple PCI (cabg 2012 at [facility], russell to lad and svg to om) (cath 02/02/17: patent russell to lad, patent svg to om1, ISR mrca-->ptca; old isr plad/plcx/om1) , MVR (bio) 10/2012, p-afib/flutter (s/p MAZE and DARIO ligation 10/2012), mod-sev , dm, htn, hld, anemia requiring transfusions here with sob/le edema. acute systolic chf: -pt here with vol overload/chf -BNP 18K (prior range 2K-5K) -wt was 139 here in 02/03. 125 on 04/06, 146 on 04/07--erroneous value, ? which -04/08: wt remains up from prior, and incr vs yest (147) -incr lasix to 80mg iv bid -cont home bb -not on acei 2/2 to hyperkalemia and low bp in past -was on lasix 40 bid at home, will have to increase to 80 bid or try torsemide upon dc -s/p ICD--routine interrogation in office per prior schedule mod-severe : -recent dobutamine studies at [facility] showed mod-sev as. She was seen by tavr team but determined she was not a candidate for tavr since her prior mvr was encroaching into lvot. -(no audible murmur on exam--??) -given her comorbidities she is very high risk for repeat open heart surgery so will have to manage with diuretics as doing cad s/p CABG, mult PCIs: -no ischemic ecg changes here, ce's neg x2 -cont lipitor, bb, asa. -after recent ptca in 01/2017 no further cp, plavix stopped after 1 month post PTCA, cont asa 81 p-afib/flutter: -S/p MAZE and DARIO ligation. -In RVR on arrival this time, likely driven by her acute chf decompensation-- now rate controlled -cont bb, dig (will check level) -Could not tolerate coumadin due to anemia requiring frequent transfusions and no clear source. -give h/o DARIO ligation, can consider GUILLERMO or CTA at [place] to look for residual flow, and possible Watchman if flow is demonstrated (or transpericardial DARIO suture if cannot likely tolerate post-Watchman AC/DAPT regimen)--can be orchestrated by EP group there. defer to outpt cardiology f/u with dr omer ( not an acute issue) -ASA only for now, as per prior tx plan htn: -stable on home meds (bp often runs low side) s/p bio MVR: -recent echo with nl bio mvr fxn. h/o anemia with h/o transfusions - hgb at baseline here. - monitor trend (on ASA only, as above)
--- NOTE | 2017-04-08 09:50 | PN ---
Progress Note, Physician Chief Complaint: says that she didn't sleep well last night, feels tired' denies chest pain not SOB on lying down - Current Medication List Current Medications: Active Medications Acetaminophen (Tylenol -) 650 mg PO Q4H PRN PRN Reason: FEVER OR PAIN Last Admin: 04/06/17 21:53 Dose: 650 mg Aspirin (Ecotrin -) 81 mg PO DAILY [facility] Last Admin: 04/07/17 10:31 Dose: 81 mg Atorvastatin Calcium (Lipitor -) 20 mg PO HS [facility] Last Admin: 04/07/17 21:50 Dose: 20 mg Digoxin (Lanoxin -) 0.125 mg PO DAILY [facility] Last Admin: 04/07/17 10:30 Dose: 0.125 mg Enoxaparin Sodium (Lovenox -) 30 mg SQ DAILY [facility] Furosemide (Lasix Injection -) 80 mg IVPUSH BID@0600,1400 [facility] Furosemide (Lasix Injection -) 80 mg IVPUSH ONCE ONE Stop: 04/08/17 09:47 Insulin Aspart (Novolog Vial Sliding Scale -) 1 vial SQ BIDAC [facility] PRN Reason: Protocol Last Admin: 04/08/17 06:29 Dose: Not Given Magnesium Oxide (Mag-Ox -) 400 mg PO DAILY [facility] Last Admin: 04/07/17 10:31 Dose: 400 mg Metformin HCl (Glucophage -) 500 mg PO BID@0700,1630 [facility] Last Admin: 04/08/17 06:29 Dose: 500 mg Metoprolol Succinate (Toprol Xl -) 50 mg PO BID [facility] Last Admin: 04/07/17 21:50 Dose: 50 mg Pantoprazole Sodium (Protonix -) 40 mg PO DAILY [facility] Last Admin: 04/07/17 10:30 Dose: 40 mg Potassium Chloride (K-Dur -) 20 meq PO DAILY [facility] Last Admin: 04/07/17 10:30 Dose: 20 meq - Objective Vital Signs: Vital Signs Temperature 98.5 F 04/08/17 06:00 Pulse Rate 83 04/08/17 06:00 Respiratory Rate 18 04/08/17 06:00 Blood Pressure 133/44 04/08/17 06:00 O2 Sat by Pulse Oximetry (%) 98 04/07/17 21:00 Constitutional: Yes: No Distress, Calm Cardiovascular: Yes: Pulse Irregular Respiratory: Yes: Diminished Gastrointestinal: Yes: Normal Bowel Sounds, Soft, Abdomen, Obese, Tenderness. No: Distention Edema: Yes (increased from yesterday ) Neurological: Yes: Alert, Oriented Psychiatric: Yes: Alert Labs: CBC, BMP 04/07/17 08:00 04/08/17 07:59 Problem List - Problems (1) Acute on chronic congestive heart failure Code(s): I50.9 - HEART FAILURE, UNSPECIFIED Qualifiers: Congestive heart failure type: systolic Qualified Code(s): I50.23 - Acute on chronic systolic (congestive) heart failure (2) Afib Code(s): I48.91 - UNSPECIFIED ATRIAL FIBRILLATION Qualifiers: Atrial fibrillation type: persistent Qualified Code(s): I48.1 - Persistent atrial fibrillation (3) Anemia Code(s): D64.9 - ANEMIA, UNSPECIFIED Qualifiers: Anemia type: other cause (4) CAD (coronary artery disease) of artery bypass graft Code(s): I25.810 - ATHEROSCLEROSIS OF CABG W/O ANGINA PECTORIS Qualifiers: [place] vs. transplanted heart: [place] heart Associated angina: without angina Qualified Code(s): I25.810 - Atherosclerosis of coronary artery bypass graft(s) without angina pectoris Assessment/Plan PLAN Diurese pt with IV lasix BID-- may need to increase dose BP permitting renal function stable check daily weights-- one pound increase legs-- increased edema OOB daily Pt not on Coumadin due to anemia , GI bleeding continue with ASA DVT prophylaxis-- SCD
[2017-04-08] MEDS: PANTOPRAZOLE 40 MG TABLET (FP) PO SCH (10:52)
[2017-04-08] MEDS: METOPROLOL SUCCINATE 50 MG TAB.SR.24H (FP) PO SCH ×2 (10:52→21:37)
[2017-04-08] MEDS: POTASSIUM CHLORIDE TABS 20 MEQ TABLET.ER (FP) PO SCH (10:52)
[2017-04-08] MEDS: DIGOXIN 0.125 MG TABLET (FP) PO SCH (10:52)
[2017-04-08] MEDS: MAGNESIUM OXIDE 400 MG TABLET (FP) PO SCH (10:52)
[2017-04-08] MEDS: ENOXAPARIN NA (PORCINE) 30 MG/0.3 ML DISP.SYRIN SQ SCH ×2 (10:53→14:47)
[2017-04-08] MEDS: ASPIRIN COATED 81 MG TABLET.EC PO SCH (10:53)
[2017-04-08] MEDS ORDERED: FUROSEMIDE 40 MG/4 ML INJECTABLE VIAL IVPUSH ONE (11:00)
[2017-04-08] MEDS ORDERED: INSULIN (NOVOLOG) ASPART 100 UNITS/ML 10ML VIAL ONE (17:42)
[2017-04-08] MEDS: ATORVASTATIN CA 20 MG TABLET (FP) PO SCH (21:37)
[2017-04-08] MEDS: ACETAMINOPHEN 325 MG TABLET (FP) PO PRN (22:20)
[2017-04-09] MEDS: metFORMIN HCL 500 MG TABLET (FP) PO SCH ×2 (06:25→17:54)
[2017-04-09] MEDS: FUROSEMIDE 40 MG/4 ML INJECTABLE VIAL IVPUSH SCH ×2 (06:25→14:38)
[2017-04-09] MEDS: INSULIN SLIDING SCALE (NOVOLOG) 1 VIAL SQ SCH ×2 (06:26→17:20)
[2017-04-09] MEDS: MAGNESIUM OXIDE 400 MG TABLET (FP) PO SCH (09:45)
[2017-04-09] MEDS: ASPIRIN COATED 81 MG TABLET.EC PO SCH (09:45)
[2017-04-09] MEDS: POTASSIUM CHLORIDE TABS 20 MEQ TABLET.ER (FP) PO SCH (09:45)
[2017-04-09] MEDS: DIGOXIN 0.125 MG TABLET (FP) PO SCH (09:45)
[2017-04-09] MEDS: ENOXAPARIN NA (PORCINE) 30 MG/0.3 ML DISP.SYRIN SQ SCH (09:45)
[2017-04-09] MEDS: PANTOPRAZOLE 40 MG TABLET (FP) PO SCH (09:45)
[2017-04-09] MEDS: METOPROLOL SUCCINATE 50 MG TAB.SR.24H (FP) PO SCH ×2 (09:45→21:35)
[2017-04-09 10:16] LABS: ANION GAP 10 (8-16); CO2 31 mmol/L (21-32); CREATININE 1.3 mg/dL (0.55-1.02); GLUCOSE,RANDOM 100 mg/dL (74-106)
--- NOTE | 2017-04-09 12:06 | PN ---
Progress Note, Physician Chief Complaint: chf History of Present Illness: sometimes sob, though feels better and more able to tolerating being without [place] oxygen no cp legs swollen no palpit ex cigs - Current Medication List Current Medications: Active Medications Acetaminophen (Tylenol -) 650 mg PO Q4H PRN PRN Reason: FEVER OR PAIN Last Admin: 04/08/17 22:20 Dose: 650 mg Aspirin (Ecotrin -) 81 mg PO DAILY [facility] Last Admin: 04/09/17 09:45 Dose: 81 mg Atorvastatin Calcium (Lipitor -) 20 mg PO HS [facility] Last Admin: 04/08/17 21:37 Dose: 20 mg Digoxin (Lanoxin -) 0.125 mg PO DAILY [facility] Last Admin: 04/09/17 09:45 Dose: 0.125 mg Enoxaparin Sodium (Lovenox -) 30 mg SQ DAILY [facility] Last Admin: 04/09/17 09:45 Dose: 30 mg Furosemide (Lasix Injection -) 80 mg IVPUSH BID@0600,1400 [facility] Last Admin: 04/09/17 06:25 Dose: 80 mg Insulin Aspart (Novolog Vial Sliding Scale -) 1 vial SQ BIDAC [facility] PRN Reason: Protocol Last Admin: 04/09/17 06:26 Dose: Not Given Magnesium Oxide (Mag-Ox -) 400 mg PO DAILY [facility] Last Admin: 04/09/17 09:45 Dose: 400 mg Metformin HCl (Glucophage -) 500 mg PO BID@0700,1630 [facility] Last Admin: 04/09/17 06:25 Dose: 500 mg Metolazone (Zaroxolyn -) 5 mg PO ONCE ONE Stop: 04/09/17 12:03 Metoprolol Succinate (Toprol Xl -) 50 mg PO BID [facility] Last Admin: 04/09/17 09:45 Dose: 50 mg Pantoprazole Sodium (Protonix -) 40 mg PO DAILY [facility] Last Admin: 04/09/17 09:45 Dose: 40 mg Potassium Chloride (K-Dur -) 20 meq PO DAILY [facility] Last Admin: 04/09/17 09:45 Dose: 20 meq - Objective Vital Signs: Vital Signs Temperature 97.6 F 04/09/17 09:46 Pulse Rate 84 04/09/17 09:46 Respiratory Rate 18 04/09/17 09:46 Blood Pressure 120/48 04/09/17 09:46 O2 Sat by Pulse Oximetry (%) 98 04/08/17 21:00 Constitutional: Yes: No Distress, Calm Eyes: No: Sclera Icterus HENT: No: Nasal Congestion Cardiovascular: Yes: Regular Rate and Rhythm, JVD (++), Murmur (soft ABIGAIL), S1, S2, Other (PMI non diplaced). No: Gallop Respiratory: Yes: CTA Bilaterally, Diminished (R base > L). No: Accessory Muscle Use, Rales, Wheezes Gastrointestinal: Yes: Normal Bowel Sounds, Soft. No: Tenderness Musculoskeletal: Yes: Other (No kyphosis) Extremities: No: Cold Edema: Yes (1+ pretib) Integumentary: No: Jaundice Neurological: Yes: Alert, Oriented (x3) Psychiatric: No: Agitated Labs: CBC, BMP 04/07/17 08:00 04/09/17 09:45 Assessment/Plan cxr: chf Echo 01/2017: sev red lvef, global hk, nl lv size, nl rv size, sev lae, mild-mod as, mild ar, nl bio mvr, mod tr, rvsp 40-50, mod ao dilatation cath 03/23/14 [place] [facility] [place] patent russell to lad, patent svg to om1, patent prior pci in pRCA, mRCA (30-50%), AV continuation 80-90% --> WILL, ISR of pLAD (70-80%), patent D2 stent, TO/ISR of pLCx, TO/ISR OM1. EF 25%. No on pull back. mibi 02/2014: Moderate intensity, moderate size mostly fixed defect of inferior wall consistent with scar with minimal bianca-infarct ischemia. Mild intensity, moderate size reversible defect from mid to base of anterior, anteroseptal, anterolateral browne consistent with mild ischemia. LVEF is severely reduced with global hypokinesis and severely dilated LV. -->sent for cath after this MIBI a/p: 76 yo f hx ICM, CHF (severely reduced LVEF), s/p ICD (single chamber, [employer], placed 07/2013), CAD s/p cabg and prior multiple PCI (cabg 2012 at [facility], russell to lad and svg to om) (cath 02/02/17: patent russell to lad, patent svg to om1, ISR mrca-->ptca; old isr plad/plcx/om1) , MVR (bio) 10/2012, p-afib/flutter (s/p MAZE and DARIO ligation 10/2012), mod-sev , dm, htn, hld, anemia requiring transfusions here with sob/le edema. acute systolic chf: -pt here with vol overload/chf -BNP 18K (prior range 2K-5K) -wt was 139 here in 02/03. 125 on 04/06, 146 on 04/07--erroneous value, ? which -04/08: wt remains up from prior, and incr vs yest (147)--incr lasix to 80mg iv bid -04/09: wt not declining, remains clinically vol overloaded--cont lasix 80 iv bid and add metolazone 5mg x 1 today -reassess tomorrow--if cannot diurese her with high dose ivp lasix plus metolazone, will need to add milrinone for inotropic support -cont home bb -not on acei 2/2 to hyperkalemia and low bp in past -was on lasix 40 bid at home, will have to increase to 80 bid or try torsemide upon dc -s/p ICD--routine interrogation in office per prior schedule mod-severe : -recent dobutamine studies at [facility] showed mod-sev as. She was seen by tavr team but determined she was not a candidate for tavr since her prior mvr was encroaching into lvot. -(no audible murmur on exam--??) -given her comorbidities she is very high risk for repeat open heart surgery so will have to manage with diuretics as doing cad s/p CABG, mult PCIs: -no ischemic ecg changes here, ce's neg x2 -cont lipitor, bb, asa. -after recent ptca in 01/2017 no further cp, plavix stopped after 1 month post PTCA, cont asa 81 p-afib/flutter: -S/p MAZE and DARIO ligation. -In RVR on arrival this time, likely driven by her acute chf decompensation-- now rate controlled -cont bb, dig (will check level) -Could not tolerate coumadin due to anemia requiring frequent transfusions and no clear source. -give h/o DARIO ligation, can consider GUILLERMO or CTA at [place] to look for residual flow, and possible Watchman if flow is demonstrated (or transpericardial DARIO suture if cannot likely tolerate post-Watchman AC/DAPT regimen)--can be orchestrated by EP group there. defer to outpt cardiology f/u with dr omer ( not an acute issue) -ASA only for now, as per prior tx plan htn: -stable on home meds (bp often runs low side) s/p bio MVR: -recent echo with nl bio mvr fxn. h/o anemia with h/o transfusions - hgb at baseline here. - monitor trend (on ASA only, as above)
[2017-04-09] MEDS ORDERED: POTASSIUM CHLORIDE TABS 20 MEQ TABLET.ER (FP) PO ONE (12:30)
[2017-04-09] MEDS ORDERED: METOLAZONE 5 MG TABLET PO ONE (13:30)
--- NOTE | 2017-04-09 14:05 | PN ---
Progress Note, Physician Chief Complaint: ' denies chest pain not SOB on lying down - Current Medication List Current Medications: Active Medications Acetaminophen (Tylenol -) 650 mg PO Q4H PRN PRN Reason: FEVER OR PAIN Last Admin: 04/08/17 22:20 Dose: 650 mg Aspirin (Ecotrin -) 81 mg PO DAILY [facility] Last Admin: 04/09/17 09:45 Dose: 81 mg Atorvastatin Calcium (Lipitor -) 20 mg PO HS [facility] Last Admin: 04/08/17 21:37 Dose: 20 mg Digoxin (Lanoxin -) 0.125 mg PO DAILY [facility] Last Admin: 04/09/17 09:45 Dose: 0.125 mg Enoxaparin Sodium (Lovenox -) 30 mg SQ DAILY [facility] Last Admin: 04/09/17 09:45 Dose: 30 mg Furosemide (Lasix Injection -) 80 mg IVPUSH BID@0600,1400 [facility] Last Admin: 04/09/17 06:25 Dose: 80 mg Insulin Aspart (Novolog Vial Sliding Scale -) 1 vial SQ BIDAC [facility] PRN Reason: Protocol Last Admin: 04/09/17 06:26 Dose: Not Given Magnesium Oxide (Mag-Ox -) 400 mg PO DAILY [facility] Last Admin: 04/09/17 09:45 Dose: 400 mg Metformin HCl (Glucophage -) 500 mg PO BID@0700,1630 [facility] Last Admin: 04/09/17 06:25 Dose: 500 mg Metoprolol Succinate (Toprol Xl -) 50 mg PO BID [facility] Last Admin: 04/09/17 09:45 Dose: 50 mg Pantoprazole Sodium (Protonix -) 40 mg PO DAILY [facility] Last Admin: 04/09/17 09:45 Dose: 40 mg Potassium Chloride (K-Dur -) 20 meq PO DAILY [facility] Last Admin: 04/09/17 09:45 Dose: 20 meq - Objective Vital Signs: Vital Signs Temperature 97.6 F 04/09/17 09:46 Pulse Rate 84 04/09/17 09:46 Respiratory Rate 18 04/09/17 09:46 Blood Pressure 120/48 04/09/17 09:46 O2 Sat by Pulse Oximetry (%) 98 04/08/17 21:00 Constitutional: Yes: No Distress Cardiovascular: Yes: Regular Rate and Rhythm Respiratory: Yes: Diminished Gastrointestinal: Yes: Normal Bowel Sounds, Soft. No: Distention, Tenderness Edema: Yes Edema: LLE: 2+, RLE: 2+ Psychiatric: Yes: Alert, Oriented Labs: CBC, BMP 04/07/17 08:00 04/09/17 09:45 Problem List - Problems (1) Acute on chronic congestive heart failure Code(s): I50.9 - HEART FAILURE, UNSPECIFIED Qualifiers: Congestive heart failure type: systolic Qualified Code(s): I50.23 - Acute on chronic systolic (congestive) heart failure (2) Afib Code(s): I48.91 - UNSPECIFIED ATRIAL FIBRILLATION Qualifiers: Atrial fibrillation type: persistent Qualified Code(s): I48.1 - Persistent atrial fibrillation (3) Anemia Code(s): D64.9 - ANEMIA, UNSPECIFIED Qualifiers: Anemia type: other cause (4) CAD (coronary artery disease) of artery bypass graft Code(s): I25.810 - ATHEROSCLEROSIS OF CABG W/O ANGINA PECTORIS Qualifiers: [place] vs. transplanted heart: [place] heart Associated angina: without angina Qualified Code(s): I25.810 - Atherosclerosis of coronary artery bypass graft(s) without angina pectoris Assessment/Plan PLAN Diurese pt with IV lasix BID-- increased dose today to 30mh iv BID renal function stable check daily weights-- one pound increase legs-- increased edema OOB daily Pt not on Coumadin due to anemia , GI bleeding continue with ASA DVT prophylaxis-- SCD
[2017-04-09] MEDS ORDERED: PT OWN MED DRAWER 7, Y5N ONE (17:57)
[2017-04-09] MEDS: ATORVASTATIN CA 20 MG TABLET (FP) PO SCH (21:35)
[2017-04-10] MEDS: INSULIN SLIDING SCALE (NOVOLOG) 1 VIAL SQ SCH ×2 (06:19→16:57)
[2017-04-10] MEDS: FUROSEMIDE 40 MG/4 ML INJECTABLE VIAL IVPUSH SCH ×2 (07:08→14:50)
[2017-04-10] MEDS: metFORMIN HCL 500 MG TABLET (FP) PO SCH ×2 (08:13→16:57)
[2017-04-10 08:25] LABS: ANION GAP 6 (8-16); CALCIUM 8.6 mg/dL (8.5-10.1); CO2 35 mmol/L (21-32); CREATININE 1.3 mg/dL (0.55-1.02); GLUCOSE,RANDOM 105 mg/dL (74-106)
[2017-04-10] MEDS: DIGOXIN 0.125 MG TABLET (FP) PO SCH (10:24)
[2017-04-10] MEDS: POTASSIUM CHLORIDE TABS 20 MEQ TABLET.ER (FP) PO SCH (10:24)
[2017-04-10] MEDS: PANTOPRAZOLE 40 MG TABLET (FP) PO SCH (10:24)
[2017-04-10] MEDS: METOPROLOL SUCCINATE 50 MG TAB.SR.24H (FP) PO SCH ×2 (10:25→21:25)
[2017-04-10] MEDS: ASPIRIN COATED 81 MG TABLET.EC PO SCH (10:25)
[2017-04-10] MEDS: MAGNESIUM OXIDE 400 MG TABLET (FP) PO SCH (10:25)
--- NOTE | 2017-04-10 10:48 | PN ---
Progress Note, Physician Chief Complaint: ' denies chest pain not SOB on lying down sitting comfortably in chair , without Oxygen-- RA O2 sat 98-99% - Current Medication List Current Medications: Active Medications Acetaminophen (Tylenol -) 650 mg PO Q4H PRN PRN Reason: FEVER OR PAIN Last Admin: 04/08/17 22:20 Dose: 650 mg Aspirin (Ecotrin -) 81 mg PO DAILY [facility] Last Admin: 04/10/17 10:25 Dose: 81 mg Atorvastatin Calcium (Lipitor -) 20 mg PO HS [facility] Last Admin: 04/09/17 21:35 Dose: 20 mg Digoxin (Lanoxin -) 0.125 mg PO DAILY [facility] Last Admin: 04/10/17 10:24 Dose: 0.125 mg Enoxaparin Sodium (Lovenox -) 30 mg SQ DAILY [facility] Last Admin: 04/09/17 09:45 Dose: 30 mg Furosemide (Lasix Injection -) 80 mg IVPUSH BID@0600,1400 [facility] Last Admin: 04/10/17 07:08 Dose: 80 mg Insulin Aspart (Novolog Vial Sliding Scale -) 1 vial SQ BIDAC [facility] PRN Reason: Protocol Last Admin: 04/10/17 06:19 Dose: Not Given Magnesium Oxide (Mag-Ox -) 400 mg PO DAILY [facility] Last Admin: 04/10/17 10:25 Dose: 400 mg Metformin HCl (Glucophage -) 500 mg PO BID@0700,1630 [facility] Last Admin: 04/10/17 08:13 Dose: 500 mg Metoprolol Succinate (Toprol Xl -) 50 mg PO BID [facility] Last Admin: 04/10/17 10:25 Dose: 50 mg Pantoprazole Sodium (Protonix -) 40 mg PO DAILY [facility] Last Admin: 04/10/17 10:24 Dose: 40 mg Potassium Chloride (K-Dur -) 20 meq PO DAILY [facility] Last Admin: 04/10/17 10:24 Dose: 20 meq - Objective Vital Signs: Vital Signs Temperature 97.9 F 04/10/17 10:00 Pulse Rate 71 04/10/17 10:24 Respiratory Rate 18 04/10/17 10:00 Blood Pressure 114/48 04/10/17 10:00 O2 Sat by Pulse Oximetry (%) 96 04/09/17 21:00 Constitutional: Yes: No Distress Cardiovascular: Yes: Pulse Irregular Respiratory: Yes: Diminished Gastrointestinal: Yes: Normal Bowel Sounds, Soft. No: Distention, Tenderness Edema: Yes (decreased) Edema: LLE: 2+, RLE: 2+ Psychiatric: Yes: Alert, Oriented Labs: CBC, BMP 04/07/17 08:00 04/10/17 06:00 Problem List - Problems (1) Acute on chronic congestive heart failure Code(s): I50.9 - HEART FAILURE, UNSPECIFIED Qualifiers: Congestive heart failure type: systolic Qualified Code(s): I50.23 - Acute on chronic systolic (congestive) heart failure (2) Afib Code(s): I48.91 - UNSPECIFIED ATRIAL FIBRILLATION Qualifiers: Atrial fibrillation type: persistent Qualified Code(s): I48.1 - Persistent atrial fibrillation (3) Anemia Code(s): D64.9 - ANEMIA, UNSPECIFIED Qualifiers: Anemia type: other cause (4) CAD (coronary artery disease) of artery bypass graft Code(s): I25.810 - ATHEROSCLEROSIS OF CABG W/O ANGINA PECTORIS Qualifiers: [place] vs. transplanted heart: [place] heart Associated angina: without angina Qualified Code(s): I25.810 - Atherosclerosis of coronary artery bypass graft(s) without angina pectoris Assessment/Plan PLAN Diurese pt with IV lasix BID-- increased dose today to 80mg iv BID renal function stable check daily weights-- 3lbs decrease legs-- decreased edema clinically improving OOB daily Pt not on Coumadin due to anemia , GI bleeding continue with ASA DVT prophylaxis-- SCD
--- NOTE | 2017-04-10 11:02 | PN ---
Progress Note (short form) - Note Progress Note: Chief Complaint: chf History of Present Illness: sometimes sob, improving. no cp legs swollen, improveds since yesterday. no palpit Received extra metolazone yesterday. ex cigs Current Medications Acetaminophen (Tylenol -) 650 mg PO Q4H PRN PRN Reason: FEVER OR PAIN Last Admin: 04/08/17 22:20 Dose: 650 mg Aspirin (Ecotrin -) 81 mg PO DAILY [facility] Last Admin: 04/10/17 10:25 Dose: 81 mg Atorvastatin Calcium (Lipitor -) 20 mg PO HS [facility] Last Admin: 04/09/17 21:35 Dose: 20 mg Digoxin (Lanoxin -) 0.125 mg PO DAILY [facility] Last Admin: 04/10/17 10:24 Dose: 0.125 mg Enoxaparin Sodium (Lovenox -) 30 mg SQ DAILY [facility] Last Admin: 04/09/17 09:45 Dose: 30 mg Furosemide (Lasix Injection -) 80 mg IVPUSH BID@0600,1400 [facility] Last Admin: 04/10/17 07:08 Dose: 80 mg Insulin Aspart (Novolog Vial Sliding Scale -) 1 vial SQ BIDAC [facility] PRN Reason: Protocol Last Admin: 04/10/17 06:19 Dose: Not Given Magnesium Oxide (Mag-Ox -) 400 mg PO DAILY [facility] Last Admin: 04/10/17 10:25 Dose: 400 mg Metformin HCl (Glucophage -) 500 mg PO BID@0700,1630 [facility] Last Admin: 04/10/17 08:13 Dose: 500 mg Metoprolol Succinate (Toprol Xl -) 50 mg PO BID [facility] Last Admin: 04/10/17 10:25 Dose: 50 mg Pantoprazole Sodium (Protonix -) 40 mg PO DAILY [facility] Last Admin: 04/10/17 10:24 Dose: 40 mg Potassium Chloride (K-Dur -) 20 meq PO DAILY [facility] Last Admin: 04/10/17 10:24 Dose: 20 meq Vital Signs - 24 hr 04/09/17 04/09/17 04/09/17 15:04 18:50 21:00 Temperature 97.9 F 98.4 F 97.6 F Pulse Rate 75 73 70 Respiratory 20 18 16 Rate Blood Pressure 135/56 121/63 102/54 O2 Sat by Pulse 96 Oximetry (%) 04/10/17 04/10/1717 06:00 10:00 10:24 Temperature 97.5 F L 97.9 F Pulse Rate 73 71 71 Respiratory 18 18 Rate Blood Pressure 111/65 114/48 O2 Sat by Pulse Oximetry (%) Intake & Output 04/08/17 04/09/17 04/10/17 04/11/17 07:59 07:59 07:59 07:59 Intake Total 150 1200 1390 Output Total 1 1500 Balance 150 1199 -110 Weight 147 lb 3.2 oz 147 lb 144 lb 12.8 oz Constitutional: Yes: No Distress, Calm Eyes: No: Sclera Icterus HENT: No: Nasal Congestion Cardiovascular: Yes: Regular Rate and Rhythm, JVD (++), Murmur (soft ABIGAIL), S1, S2, Other (PMI non diplaced). No: Gallop Respiratory: Yes: CTA Bilaterally, Diminished (R base > L). No: Accessory Muscle Use, Rales, Wheezes Gastrointestinal: Yes: Normal Bowel Sounds, Soft. No: Tenderness Musculoskeletal: Yes: Other (No kyphosis) Extremities: No: Cold Edema: Yes (1+ pretib) Integumentary: No: Jaundice Neurological: Yes: Alert, Oriented (x3) Psychiatric: No: Agitated Labs: CBC, BMP 04/07/17 08:00 04/10/17 06:00 Assessment/Plan cxr: chf Echo 01/2017: sev red lvef, global hk, nl lv size, nl rv size, sev lae, mild-mod as, mild ar, nl bio mvr, mod tr, rvsp 40-50, mod ao dilatation cath 03/23/14 at [facility] [place]: patent russell to lad, patent svg to om1, patent prior pci in pRCA, mRCA (30-50%), AV continuation 80-90% --> WILL, ISR of pLAD (70-80%), patent D2 stent, TO/ISR of pLCx, TO/ISR OM1. EF 25%. No on pull back. mibi 02/2014: Moderate intensity, moderate size mostly fixed defect of inferior wall consistent with scar with minimal bianca-infarct ischemia. Mild intensity, moderate size reversible defect from mid to base of anterior, anteroseptal, anterolateral browne consistent with mild ischemia. LVEF is severely reduced with global hypokinesis and severely dilated LV. -->sent for cath after this MIBI a/p: 76 yo f hx ICM, CHF (severely reduced LVEF), s/p ICD (single chamber, [employer], placed 07/2013), CAD s/p cabg and prior multiple PCI (cabg 2012 at [facility], russell to lad and svg to om) (cath 02/02/17: patent russell to lad, patent svg to om1, ISR mrca-->ptca; old isr plad/plcx/om1) , MVR (bio) 10/2012, p-afib/flutter (s/p MAZE and DARIO ligation 10/2012), mod-sev , dm, htn, hld, anemia requiring transfusions here with sob/le edema. acute systolic chf: -pt here with vol overload/chf -BNP 18K (prior range 2K-5K) -wt was 139 here in 02/03. 125 on 04/06, 146 on 04/07--erroneous value, ? which -04/08: wt remains up from prior, and incr vs yest (147)--incr lasix to 80mg iv bid -04/09: wt not declining, remains clinically vol overloaded--cont lasix 80 iv bid and add metolazone 5mg x 1 today -reassess tomorrow--if cannot diurese her with high dose ivp lasix plus metolazone, will need to add milrinone for inotropic support - 04/10 weight down today s/p extra metolazone yesterday. Will repeat today. -cont home bb -not on acei 2/2 to hyperkalemia and low bp in past -was on lasix 40 bid at home, will have to increase to 80 bid or try torsemide upon dc -s/p ICD--routine interrogation in office per prior schedule mod-severe : -recent dobutamine studies at [facility] showed mod-sev as. She was seen by tavr team but determined she was not a candidate for tavr since her prior mvr was encroaching into lvot. -(no audible murmur on exam--??) -given her comorbidities she is very high risk for repeat open heart surgery so will have to manage with diuretics as doing cad s/p CABG, mult PCIs: -no ischemic ecg changes here, ce's neg x2 -cont lipitor, bb, asa. -after recent ptca in 01/2017 no further cp, plavix stopped after 1 month post PTCA, cont asa 81 p-afib/flutter: -S/p MAZE and DARIO ligation. -In RVR on arrival this time, likely driven by her acute chf decompensation-- now rate controlled -cont bb, dig (will check level) -Could not tolerate coumadin due to anemia requiring frequent transfusions and no clear source. -give h/o DARIO ligation, can consider GUILLERMO or CTA at [facility] to look for residual flow, and possible Watchman if flow is demonstrated (or transpericardial DARIO suture if cannot likely tolerate post-Watchman AC/DAPT regimen)--can be orchestrated by EP group there. defer to outpt cardiology f/u with dr omer ( not an acute issue) -ASA only for now, as per prior tx plan htn: -stable on home meds (bp often runs low side) s/p bio MVR: -recent echo with nl bio mvr fxn. h/o anemia with h/o transfusions - hgb at baseline here. - monitor trend (on ASA only, as above)
[2017-04-10] MEDS ORDERED: METOLAZONE 5 MG TABLET PO ONE (13:30)
[2017-04-10] MEDS: ENOXAPARIN NA (PORCINE) 30 MG/0.3 ML DISP.SYRIN SQ SCH (14:51)
[2017-04-10] MEDS ORDERED: PT OWN MED DRAWER 7, Y5N ONE (16:22)
[2017-04-10] MEDS: ATORVASTATIN CA 20 MG TABLET (FP) PO SCH (21:25)
[2017-04-11] MEDS: FUROSEMIDE 40 MG/4 ML INJECTABLE VIAL IVPUSH SCH ×3 (06:00→15:15)
[2017-04-11] MEDS: INSULIN SLIDING SCALE (NOVOLOG) 1 VIAL SQ SCH ×2 (07:00→17:34)
[2017-04-11 07:38] LABS: MCHC 29.8 g/dl (32.0-36.0); MEAN CELL VOLUME 65.6 fl (80-96); RDW 21.5 % (11.6-15.6); WHITE BLOOD COUNT 5.7 K/mm3 (4.0-10.0)
[2017-04-11] MEDS: metFORMIN HCL 500 MG TABLET (FP) PO SCH ×2 (07:50→17:36)
[2017-04-11 08:10] LABS: ANION GAP 7 (8-16); CALCIUM 8.7 mg/dL (8.5-10.1); CO2 39 mmol/L (21-32); CREATININE 1.3 mg/dL (0.55-1.02); GLUCOSE,RANDOM 106 mg/dL (74-106); MAGNESIUM 1.8 mg/dL (1.8-2.4)
[2017-04-11 08:22] LABS: MCH 19.5 pg (25.7-33.7)
[2017-04-11] MEDS: MAGNESIUM OXIDE 400 MG TABLET (FP) PO SCH (09:13)
[2017-04-11] MEDS: POTASSIUM CHLORIDE TABS 20 MEQ TABLET.ER (FP) PO SCH (09:13)
[2017-04-11] MEDS: METOPROLOL SUCCINATE 50 MG TAB.SR.24H (FP) PO SCH ×2 (09:13→21:32)
[2017-04-11] MEDS: ASPIRIN COATED 81 MG TABLET.EC PO SCH (09:13)
[2017-04-11] MEDS: ENOXAPARIN NA (PORCINE) 30 MG/0.3 ML DISP.SYRIN SQ SCH (09:14)
[2017-04-11] MEDS: DIGOXIN 0.125 MG TABLET (FP) PO SCH (09:14)
[2017-04-11] MEDS: PANTOPRAZOLE 40 MG TABLET (FP) PO SCH (09:16)
[2017-04-11 09:58] LABS: ANISOCYTOSIS 2+; HYPOCHROMIA 2+; MACROCYTOSIS FEW; MICROCYTOSIS 2+; PLATELET COMMENT2 UNABLE TO ENUMERATE; PLATELET ESTIMATE ADEQUATE (NORMAL); POLYCHROMASIA 1+
[2017-04-11 09:59] LABS: TARGET CELLS 1+
--- NOTE | 2017-04-11 11:03 | PN ---
Progress Note (short form) - Note Progress Note: Chief Complaint: chf History of Present Illness: sob and le edema gradually improving. no cp palps dizzy Current Medications Generic Name Dose Route Start Last Admin Trade Name Frekieran PRN Reason Stop Dose Admin Acetaminophen 650 mg 04/06/17 18:59 04/08/17 22:20 Tylenol - PO 650 mg Q4H PRN Administration FEVER OR PAIN Aspirin 81 mg 04/06/17 10:00 04/11/17 09:13 Ecotrin - PO 81 mg DAILY [facility] Administration Atorvastatin Calcium 20 mg 04/05/17 22:00 04/10/17 21:25 Lipitor - PO 20 mg HS [facility] Administration Digoxin 0.125 mg 04/06/17 10:00 04/11/17 09:14 Lanoxin - PO 0.125 mg DAILY [facility] Administration Enoxaparin Sodium 30 mg 04/08/17 10:00 04/11/17 09:14 Lovenox - SQ 30 mg DAILY [facility] Administration Furosemide 80 mg 04/09/17 06:00 04/11/17 10:07 Lasix Injection - IVPUSH 80 mg BID@0600,1400 [facility] Administration Insulin Aspart 1 vial 04/07/17 07:00 04/11/17 07:00 Novolog Vial Sliding Scale - SQ Not Given BIDAC [facility] Protocol Magnesium Oxide 400 mg 04/06/17 10:00 04/11/17 09:13 Mag-Ox - PO 400 mg DAILY [facility] Administration Metformin HCl 500 mg 04/07/17 07:00 04/11/17 07:50 Glucophage - PO 500 mg BID@0700,1630 [facility] Administration Metolazone 5 mg 04/11/17 13:30 Zaroxolyn - PO 04/11/17 13:31 ONCE ONE Metoprolol Succinate 50 mg 04/05/17 22:00 04/11/17 09:13 Toprol Xl - PO 50 mg BID [facility] Administration Pantoprazole Sodium 40 mg 04/06/17 10:00 04/11/17 09:16 Protonix - PO 40 mg DAILY [facility] Administration Potassium Chloride 20 meq 04/06/17 10:00 04/11/17 09:13 K-Dur - PO 20 meq DAILY [facility] Administration Potassium Chloride 40 meq 04/11/17 12:00 K-Dur - PO 04/11/17 12:01 ONCE ONE Vital Signs Temp 98 F 04/11/17 07:50 Pulse 89 04/11/17 09:14 Resp 16 04/11/17 07:50 BP 100/53 04/11/17 07:50 Pulse Ox 95 04/10/17 22:00 Intake & Output 04/10/17 04/10/17 04/11/17 11:59 23:59 11:59 Intake Total 250 920 Output Total 900 400 Balance 250 20 -400 Weight 144 lb 12.8 oz Intake: IVPB 50 50 Oral 200 870 Output: Urine 900 400 Void 900 400 Other: Voiding Method Toilet Toilet Bowel Movement No Yes # Bowel Movements 1 Weight Measurement Method Standing Scale Constitutional: Yes: No Distress, Calm Eyes: No: Sclera Icterus HENT: No: Nasal Congestion Cardiovascular: Yes: Regular Rate and Rhythm, JVD (++), Murmur (soft ABIGAIL), S1, S2, Other (PMI non diplaced). No: Gallop Respiratory: Yes: CTA Bilaterally, Diminished (R base > L). No: Accessory Muscle Use, Rales, Wheezes Gastrointestinal: Yes: Normal Bowel Sounds, Soft. No: Tenderness Musculoskeletal: Yes: Other (No kyphosis) Extremities: No: Cold Edema: Yes (1+ pretib) Integumentary: No: Jaundice Neurological: Yes: Alert, Oriented (x3) Psychiatric: No: Agitated Labs: CBC, BMP 04/11/17 06:38 04/11/17 06:38 cxr: chf Echo 01/2017: sev red lvef, global hk, nl lv size, nl rv size, sev lae, mild-mod as, mild ar, nl bio mvr, mod tr, rvsp 40-50, mod ao dilatation cath 03/23/14 at [facility] [place]: patent russell to lad, patent svg to om1, patent prior pci in pRCA, mRCA (30-50%), AV continuation 80-90% --> WILL, ISR of pLAD (70-80%), patent D2 stent, TO/ISR of pLCx, TO/ISR OM1. EF 25%. No on pull back. mibi 02/2014: Moderate intensity, moderate size mostly fixed defect of inferior wall consistent with scar with minimal bianca-infarct ischemia. Mild intensity, moderate size reversible defect from mid to base of anterior, anteroseptal, anterolateral browne consistent with mild ischemia. LVEF is severely reduced with global hypokinesis and severely dilated LV. -->sent for cath after this MIBI a/p: 76 yo f hx ICM, CHF (severely reduced LVEF), s/p ICD (single chamber, [employer], placed 07/2013), CAD s/p cabg and prior multiple PCI (cabg 2012 at [facility], russell to lad and svg to om) (cath 02/02/17: patent russell to lad, patent svg to om1, ISR mrca-->ptca; old isr plad/plcx/om1) , MVR (bio) 10/2012, p-afib/flutter (s/p MAZE and DARIO ligation 10/2012), mod-sev , dm, htn, hld, anemia requiring transfusions here with sob/le edema. acute systolic chf: -pt here with vol overload/chf -BNP 18K (prior range 2K-5K) -wt was 139 here in 02/03. 125 on 04/06, 146 on 04/07--erroneous value, ? which -04/08: wt remains up from prior, and incr vs yest (147)--incr lasix to 80mg iv bid -04/09: wt not declining, remains clinically vol overloaded--cont lasix 80 iv bid and add metolazone 5mg x 1 today -reassess tomorrow--if cannot diurese her with high dose ivp lasix plus metolazone, will need to add milrinone for inotropic support - 04/10-:vol status improving s/p extra metolazone. Will repeat today with current iv lasix. daily chem7. -cont home bb -not on acei 2/2 to hyperkalemia and low bp in past -was on lasix 40 bid at home, will have to increase to 80 bid or try torsemide upon dc -s/p ICD--routine interrogation in office per prior schedule mod-severe : -recent dobutamine studies at [facility] showed mod-sev as. She was seen by tavr team but determined she was not a candidate for tavr since her prior mvr was encroaching into lvot. -(no audible murmur on exam--??) -given her comorbidities she is very high risk for repeat open heart surgery so will have to manage with diuretics as doing cad s/p CABG, mult PCIs: -no ischemic ecg changes here, ce's neg x2 -cont lipitor, bb, asa. -after recent ptca in 01/2017 no further cp, plavix stopped after 1 month post PTCA, cont asa 81 p-afib/flutter: -S/p MAZE and DARIO ligation. -In RVR on arrival this time, likely driven by her acute chf decompensation-- now rate controlled -cont bb, dig (will check level) -Could not tolerate coumadin due to anemia requiring frequent transfusions and no clear source. -give h/o DARIO ligation, can consider GUILLERMO or CTA at [facility] to look for residual flow, and possible Watchman if flow is demonstrated (or transpericardial DARIO suture if cannot likely tolerate post-Watchman AC/DAPT regimen)--can be orchestrated by EP group there. defer to outpt cardiology f/u with dr omer ( not an acute issue) -ASA only for now, as per prior tx plan htn: -stable on home meds (bp often runs low side) s/p bio MVR: -recent echo with nl bio mvr fxn. h/o anemia with h/o transfusions - hgb at baseline here. - monitor trend (on ASA only, as above)
--- NOTE | 2017-04-11 11:08 | PN ---
Progress Note, Physician Chief Complaint: no complaints feels well No SOB uses o2 as needed-- though her O2 sat are above 95% - Current Medication List Current Medications: Active Medications Acetaminophen (Tylenol -) 650 mg PO Q4H PRN PRN Reason: FEVER OR PAIN Last Admin: 04/08/17 22:20 Dose: 650 mg Aspirin (Ecotrin -) 81 mg PO DAILY [facility] Last Admin: 04/11/17 09:13 Dose: 81 mg Atorvastatin Calcium (Lipitor -) 20 mg PO HS [facility] Last Admin: 04/10/17 21:25 Dose: 20 mg Digoxin (Lanoxin -) 0.125 mg PO DAILY [facility] Last Admin: 04/11/17 09:14 Dose: 0.125 mg Enoxaparin Sodium (Lovenox -) 30 mg SQ DAILY [facility] Last Admin: 04/11/17 09:14 Dose: 30 mg Furosemide (Lasix Injection -) 80 mg IVPUSH BID@0600,1400 [facility] Last Admin: 04/11/17 10:07 Dose: 80 mg Insulin Aspart (Novolog Vial Sliding Scale -) 1 vial SQ BIDAC [facility] PRN Reason: Protocol Last Admin: 04/11/17 07:00 Dose: Not Given Magnesium Oxide (Mag-Ox -) 400 mg PO DAILY [facility] Last Admin: 04/11/17 09:13 Dose: 400 mg Metformin HCl (Glucophage -) 500 mg PO BID@0700,1630 [facility] Last Admin: 04/11/17 07:50 Dose: 500 mg Metolazone (Zaroxolyn -) 5 mg PO ONCE ONE Stop: 04/11/17 13:31 Metoprolol Succinate (Toprol Xl -) 50 mg PO BID [facility] Last Admin: 04/11/17 09:13 Dose: 50 mg Pantoprazole Sodium (Protonix -) 40 mg PO DAILY [facility] Last Admin: 04/11/17 09:16 Dose: 40 mg Potassium Chloride (K-Dur -) 20 meq PO DAILY [facility] Last Admin: 04/11/17 09:13 Dose: 20 meq Potassium Chloride (K-Dur -) 40 meq PO ONCE ONE Stop: 04/11/17 12:01 - Objective Vital Signs: Vital Signs Temperature 98 F 04/11/17 07:50 Pulse Rate 89 04/11/17 09:14 Respiratory Rate 16 04/11/17 07:50 Blood Pressure 100/53 04/11/17 07:50 O2 Sat by Pulse Oximetry (%) 95 04/10/17 22:00 Constitutional: Yes: No Distress, Calm Cardiovascular: Yes: Regular Rate and Rhythm Respiratory: Yes: Diminished, Rales (bases B/L) Gastrointestinal: Yes: Normal Bowel Sounds, Soft. No: Distention, Tenderness Edema: Yes (decreased) Labs: CBC, BMP 04/11/17 06:38 04/11/17 06:38 Problem List - Problems (1) Acute on chronic congestive heart failure Code(s): I50.9 - HEART FAILURE, UNSPECIFIED Qualifiers: Congestive heart failure type: systolic Qualified Code(s): I50.23 - Acute on chronic systolic (congestive) heart failure (2) Afib Code(s): I48.91 - UNSPECIFIED ATRIAL FIBRILLATION Qualifiers: Atrial fibrillation type: persistent Qualified Code(s): I48.1 - Persistent atrial fibrillation (3) Anemia Code(s): D64.9 - ANEMIA, UNSPECIFIED Qualifiers: Anemia type: other cause (4) CAD (coronary artery disease) of artery bypass graft Code(s): I25.810 - ATHEROSCLEROSIS OF CABG W/O ANGINA PECTORIS Qualifiers: [place] vs. transplanted heart: [place] heart Associated angina: without angina Qualified Code(s): I25.810 - Atherosclerosis of coronary artery bypass graft(s) without angina pectoris Assessment/Plan PLAN Diurese pt with IV lasix BID-- increased dose to 80mg iv BID metalozone added potassium supplement renal function stable check daily weights-- 3lbs decrease legs-- decreased edema clinically improving OOB daily Pt not on Coumadin due to anemia , GI bleeding continue with ASA DVT prophylaxis-- SCD
[2017-04-11] MEDS: ASCORBIC ACID 500 MG TABLET (FP) PO SCH (11:59)
[2017-04-11] MEDS: FERROUS SO4 325 MG TABLET (FP) PO SCH (11:59)
[2017-04-11] MEDS ORDERED: POTASSIUM CHLORIDE TABS 20 MEQ TABLET.ER (FP) PO ONE (12:00)
[2017-04-11] MEDS ORDERED: METOLAZONE 5 MG TABLET PO ONE (13:30)
[2017-04-11] MEDS: ATORVASTATIN CA 20 MG TABLET (FP) PO SCH (21:32)
[2017-04-12] MEDS: metFORMIN HCL 500 MG TABLET (FP) PO SCH ×2 (06:27→17:34)
[2017-04-12] MEDS: FUROSEMIDE 40 MG/4 ML INJECTABLE VIAL IVPUSH SCH ×3 (06:27→15:08)
[2017-04-12] MEDS: INSULIN SLIDING SCALE (NOVOLOG) 1 VIAL SQ SCH ×2 (06:28→17:33)
[2017-04-12 07:44] LABS: MCHC 30.3 g/dl (32.0-36.0); MEAN PLT VOLUME 9.3 fl (7.5-11.1); PLATELET COUNT 159 K/MM3 (134-434); RDW 22.1 % (11.6-15.6); WHITE BLOOD COUNT 5.6 K/mm3 (4.0-10.0)
[2017-04-12 07:51] LABS: MCH 19.7 pg (25.7-33.7)
[2017-04-12 08:02] LABS: ANION GAP 7 (8-16); CALCIUM 8.7 mg/dL (8.5-10.1); CO2 39 mmol/L (21-32); CREATININE 1.3 mg/dL (0.55-1.02); GLUCOSE,RANDOM 114 mg/dL (74-106)
[2017-04-12] MEDS ORDERED: ARTIFICIAL TEARS (POLYVINYL ALCOHOL 1.4%) OPTH DROPS OU PRN (08:29)
[2017-04-12] MEDS: ENOXAPARIN NA (PORCINE) 30 MG/0.3 ML DISP.SYRIN SQ SCH (09:29)
[2017-04-12] MEDS: MAGNESIUM OXIDE 400 MG TABLET (FP) PO SCH (09:29)
[2017-04-12] MEDS: DIGOXIN 0.125 MG TABLET (FP) PO SCH (09:29)
[2017-04-12] MEDS: PANTOPRAZOLE 40 MG TABLET (FP) PO SCH (09:29)
[2017-04-12] MEDS: ASPIRIN COATED 81 MG TABLET.EC PO SCH (09:29)
[2017-04-12] MEDS: POTASSIUM CHLORIDE TABS 20 MEQ TABLET.ER (FP) PO SCH (09:29)
[2017-04-12] MEDS: ASCORBIC ACID 500 MG TABLET (FP) PO SCH (09:29)
[2017-04-12] MEDS: FERROUS SO4 325 MG TABLET (FP) PO SCH (09:29)
[2017-04-12] MEDS: METOPROLOL SUCCINATE 50 MG TAB.SR.24H (FP) PO SCH ×3 (09:30→21:09)
--- NOTE | 2017-04-12 10:40 | PN ---
Progress Note (short form) - Note Progress Note: Chief Complaint: chf History of Present Illness: sob and le edema improving. no cp palps dizzy Current Medications Generic Name Dose Route Start Last Admin Trade Name Norberto PRN Reason Stop Dose Admin Acetaminophen 650 mg 04/06/17 18:59 04/08/17 22:20 Tylenol - PO 650 mg Q4H PRN Administration FEVER OR PAIN Artificial Tears 1 drop 04/12/17 08:29 Artificial Tears OU QID PRN DRY EYES Ascorbic Acid 500 mg 04/11/17 12:00 04/12/17 09:29 Vitamin C - PO 500 mg DAILY [facility] Administration Aspirin 81 mg 04/06/17 10:00 04/12/17 09:29 Ecotrin - PO 81 mg DAILY [facility] Administration Atorvastatin Calcium 20 mg 04/05/17 22:00 04/11/17 21:32 Lipitor - PO 20 mg HS [facility] Administration Digoxin 0.125 mg 04/06/17 10:00 04/12/17 09:29 Lanoxin - PO 0.125 mg DAILY [facility] Administration Enoxaparin Sodium 30 mg 04/08/17 10:00 04/12/17 09:29 Lovenox - SQ 30 mg DAILY [facility] Administration Ferrous Sulfate 325 mg 04/11/17 11:45 04/12/17 09:29 Feosol - PO 325 mg DAILY [facility] Administration Furosemide 80 mg 04/09/17 06:00 04/12/17 07:28 Lasix Injection - IVPUSH 80 mg BID@0600,1400 [facility] Administration Insulin Aspart 1 vial 04/07/17 07:00 04/12/17 06:28 Novolog Vial Sliding Scale - SQ Not Given BIDAC [facility] Protocol Magnesium Oxide 400 mg 04/06/17 10:00 04/12/17 09:29 Mag-Ox - PO 400 mg DAILY [facility] Administration Metformin HCl 500 mg 04/07/17 07:00 04/12/17 06:27 Glucophage - PO 500 mg BID@0700,1630 [facility] Administration Metolazone 5 mg 04/12/17 13:30 Zaroxolyn - PO 04/12/17 13:31 ONCE ONE Metoprolol Succinate 50 mg 04/05/17 22:00 04/12/17 09:30 Toprol Xl - PO Not Given BID [facility] Pantoprazole Sodium 40 mg 04/06/17 10:00 04/12/17 09:29 Protonix - PO 40 mg DAILY [facility] Administration Potassium Chloride 40 meq 04/11/17 11:36 04/12/17 09:29 K-Dur - PO 40 meq DAILY [facility] Administration Potassium Chloride 40 meq 04/12/17 12:00 K-Dur - PO 04/12/17 12:01 ONCE ONE Vital Signs Period Temp Pulse Resp BP Sys/Peterson Pulse Ox Last 24 Hr 97.6 F-98.6 F 64-95 20-22 100-106/51-58 99 Constitutional: Yes: No Distress, Calm Eyes: No: Sclera Icterus HENT: No: Nasal Congestion Cardiovascular: Yes: Regular Rate and Rhythm, JVD, Murmur (soft ABIGAIL), S1, S2, Other (PMI non diplaced). No: Gallop Respiratory: Yes: CTA Bilaterally, Diminished. No: Accessory Muscle Use, Rales , Wheezes Gastrointestinal: Yes: Normal Bowel Sounds, Soft. No: Tenderness Musculoskeletal: Yes: Other (No kyphosis) Extremities: No: Cold Edema: Yes (trace pretib) Integumentary: No: Jaundice Neurological: Yes: Alert, Oriented (x3) Psychiatric: No: Agitated Labs: CBC, BMP 04/12/17 06:00 04/12/17 06:00 cxr: chf Echo 01/2017: sev red lvef, global hk, nl lv size, nl rv size, sev lae, mild-mod as, mild ar, nl bio mvr, mod tr, rvsp 40-50, mod ao dilatation cath 03/23/14 at [facility] [place]: patent russell to lad, patent svg to om1, patent prior pci in pRCA, mRCA (30-50%), AV continuation 80-90% --> WILL, ISR of pLAD (70-80%), patent D2 stent, TO/ISR of pLCx, TO/ISR OM1. EF 25%. No on pull back. mibi 02/2014: Moderate intensity, moderate size mostly fixed defect of inferior wall consistent with scar with minimal bianca-infarct ischemia. Mild intensity, moderate size reversible defect from mid to base of anterior, anteroseptal, anterolateral browne consistent with mild ischemia. LVEF is severely reduced with global hypokinesis and severely dilated LV. -->sent for cath after this MIBI a/p: 76 yo f hx ICM, CHF (severely reduced LVEF), s/p ICD (single chamber, [employer], placed 07/2013), CAD s/p cabg and prior multiple PCI (cabg 2012 at [facility], russell to lad and svg to om) (cath 02/02/17: patent russell to lad, patent svg to om1, ISR mrca-->ptca; old isr plad/plcx/om1) , MVR (bio) 10/2012, p-afib/flutter (s/p MAZE and DARIO ligation 10/2012), mod-sev , dm, htn, hld, anemia requiring transfusions here with sob/le edema. acute systolic chf: -pt here with vol overload/chf -BNP 18K (prior range 2K-5K) -wt was 139 here in 02/03. 125 on 04/06, 146 on 04/07--erroneous value, ? which -04/08: wt remains up from prior, and incr vs yest (147)--incr lasix to 80mg iv bid -04/09: wt not declining, remains clinically vol overloaded--cont lasix 80 iv bid and add metolazone 5mg x 1 today -reassess tomorrow--if cannot diurese her with high dose ivp lasix plus metolazone, will need to add milrinone for inotropic support - 04/10-24:vol status improving, cr stable, wt down. Cont with current iv lasix/ metolazone. daily chem7. -cont home bb -not on acei 2/2 to hyperkalemia and low bp in past -was on lasix 40 bid at home, will have to increase to 80 bid or try torsemide upon dc -s/p ICD--routine interrogation in office per prior schedule mod-severe : -recent dobutamine studies at [facility] showed mod-sev as. She was seen by tavr team but determined she was not a candidate for tavr since her prior mvr was encroaching into lvot. -(no audible murmur on exam--??) -given her comorbidities she is very high risk for repeat open heart surgery so will have to manage with diuretics as doing cad s/p CABG, mult PCIs: -no ischemic ecg changes here, ce's neg x2 -cont lipitor, bb, asa. -after recent ptca in 01/2017 no further cp, plavix stopped after 1 month post PTCA, cont asa 81 p-afib/flutter: -S/p MAZE and DARIO ligation. -In RVR on arrival this time, likely driven by her acute chf decompensation-- now rate controlled -cont bb, dig (will check level) -Could not tolerate coumadin due to anemia requiring frequent transfusions and no clear source. -give h/o DARIO ligation, can consider GUILLERMO or CTA at [place] to look for residual flow, and possible Watchman if flow is demonstrated (or transpericardial DARIO suture if cannot likely tolerate post-Watchman AC/DAPT regimen)--can be orchestrated by EP group there. defer to outpt cardiology f/u with dr omer ( not an acute issue) -ASA only for now, as per prior tx plan htn: -stable on home meds (bp often runs low side) s/p bio MVR: -recent echo with nl bio mvr fxn. h/o anemia with h/o transfusions - hgb at baseline here. - monitor trend (on ASA only, as above)
--- NOTE | 2017-04-12 11:33 | PN ---
Progress Note, Physician Chief Complaint: no complaints feels well No SOB ambulating in hallways fine - Current Medication List Current Medications: Active Medications Acetaminophen (Tylenol -) 650 mg PO Q4H PRN PRN Reason: FEVER OR PAIN Last Admin: 04/08/17 22:20 Dose: 650 mg Artificial Tears (Artificial Tears) 1 drop OU QID PRN PRN Reason: DRY EYES Ascorbic Acid (Vitamin C -) 500 mg PO DAILY [facility] Last Admin: 04/12/17 09:29 Dose: 500 mg Aspirin (Ecotrin -) 81 mg PO DAILY [facility] Last Admin: 04/12/17 09:29 Dose: 81 mg Atorvastatin Calcium (Lipitor -) 20 mg PO HS [facility] Last Admin: 04/11/17 21:32 Dose: 20 mg Digoxin (Lanoxin -) 0.125 mg PO DAILY [facility] Last Admin: 04/12/17 09:29 Dose: 0.125 mg Enoxaparin Sodium (Lovenox -) 30 mg SQ DAILY [facility] Last Admin: 04/12/17 09:29 Dose: 30 mg Ferrous Sulfate (Feosol -) 325 mg PO DAILY [facility] Last Admin: 04/12/17 09:29 Dose: 325 mg Furosemide (Lasix Injection -) 80 mg IVPUSH BID@0600,1400 [facility] Last Admin: 04/12/17 07:28 Dose: 80 mg Insulin Aspart (Novolog Vial Sliding Scale -) 1 vial SQ BIDAC [facility] PRN Reason: Protocol Last Admin: 04/12/17 06:28 Dose: Not Given Magnesium Oxide (Mag-Ox -) 400 mg PO DAILY [facility] Last Admin: 04/12/17 09:29 Dose: 400 mg Metformin HCl (Glucophage -) 500 mg PO BID@0700,1630 [facility] Last Admin: 04/12/17 06:27 Dose: 500 mg Metolazone (Zaroxolyn -) 5 mg PO ONCE ONE Stop: 04/12/17 13:31 Metoprolol Succinate (Toprol Xl -) 50 mg PO BID [facility] Last Admin: 04/12/17 09:30 Dose: Not Given Pantoprazole Sodium (Protonix -) 40 mg PO DAILY [facility] Last Admin: 04/12/17 09:29 Dose: 40 mg Potassium Chloride (K-Dur -) 40 meq PO DAILY [facility] Last Admin: 04/12/17 09:29 Dose: 40 meq Potassium Chloride (K-Dur -) 40 meq PO ONCE ONE Stop: 04/12/17 12:01 - Objective Vital Signs: Vital Signs Temperature 97.6 F 04/12/17 06:00 Pulse Rate 95 H 04/12/17 09:29 Respiratory Rate 20 04/12/17 06:00 Blood Pressure 103/58 04/12/17 06:00 O2 Sat by Pulse Oximetry (%) 99 04/11/17 21:00 Constitutional: Yes: No Distress Cardiovascular: Yes: Pulse Irregular Respiratory: Yes: CTA Bilaterally. No: Rales, Rhonchi Gastrointestinal: Yes: Normal Bowel Sounds, Soft. No: Distention, Tenderness Edema: Yes (decreased) Labs: CBC, BMP 04/12/17 06:00 04/12/17 06:00 Problem List - Problems (1) Acute on chronic congestive heart failure Code(s): I50.9 - HEART FAILURE, UNSPECIFIED Qualifiers: Congestive heart failure type: systolic Qualified Code(s): I50.23 - Acute on chronic systolic (congestive) heart failure (2) Afib Code(s): I48.91 - UNSPECIFIED ATRIAL FIBRILLATION Qualifiers: Atrial fibrillation type: persistent Qualified Code(s): I48.1 - Persistent atrial fibrillation (3) Anemia Code(s): D64.9 - ANEMIA, UNSPECIFIED Qualifiers: Anemia type: other cause (4) CAD (coronary artery disease) of artery bypass graft Code(s): I25.810 - ATHEROSCLEROSIS OF CABG W/O ANGINA PECTORIS Qualifiers: [place] vs. transplanted heart: [place] heart Associated angina: without angina Qualified Code(s): I25.810 - Atherosclerosis of coronary artery bypass graft(s) without angina pectoris Assessment/Plan PLAN Diurese pt with IV lasix BID-- increased dose to 80mg iv BID metalozone added today also potassium supplement renal function stable check daily weights-- better possible dc tomorrow if continues to improve legs-- decreased edema clinically improving OOB daily Pt not on Coumadin due to anemia , GI bleeding continue with ASA DVT prophylaxis-- SCD
[2017-04-12] MEDS ORDERED: POTASSIUM CHLORIDE TABS 20 MEQ TABLET.ER (FP) PO ONE (12:00)
[2017-04-12] MEDS ORDERED: METOLAZONE 5 MG TABLET PO ONE (13:30)
[2017-04-12] MEDS: ATORVASTATIN CA 20 MG TABLET (FP) PO SCH (21:09)
[2017-04-13] MEDS: INSULIN SLIDING SCALE (NOVOLOG) 1 VIAL SQ SCH ×2 (06:15→18:01)
[2017-04-13] MEDS: FUROSEMIDE 40 MG/4 ML INJECTABLE VIAL IVPUSH SCH (06:15)
[2017-04-13] MEDS: metFORMIN HCL 500 MG TABLET (FP) PO SCH ×2 (06:15→18:01)
[2017-04-13 07:42] LABS: ANION GAP 6 (8-16); CALCIUM 9.2 mg/dL (8.5-10.1); CO2 41 mmol/L (21-32); CREATININE 1.3 mg/dL (0.55-1.02); GLUCOSE,RANDOM 115 mg/dL (74-106)
--- NOTE | 2017-04-13 09:17 | PN ---
Progress Note (short form) - Note Progress Note: Pt seen/ examined. chart reviewed feels much better decreased sob. able to walk in hallway nurse reports was sob last night denies cp. Vital Signs Temp 98 F 04/13/17 06:26 Pulse 72 04/13/17 06:26 Resp 20 04/13/17 06:26 BP 109/54 04/13/17 06:26 Pulse Ox 97 04/12/17 21:00 Intake & Output 04/12/17 04/12/17 04/13/17 11:59 23:59 11:59 Intake Total 200 1190 400 Output Total 900 700 Balance -700 490 400 Weight 141 lb 4 oz 138 lb 6 oz Intake: IVPB 0 Oral 200 1190 400 Output: Urine 900 700 Void 900 700 Other: Voiding Method Toilet Toilet # Unmeasured Voids Void 1 1 Bowel Movement Yes # Bowel Movements 1 Weight Measurement Method Standing Scale Standing Scale CBC, BMP 04/12/17 06:00 04/13/17 06:15 Active Medications Acetaminophen (Tylenol -) 650 mg PO Q4H PRN PRN Reason: FEVER OR PAIN Last Admin: 04/08/17 22:20 Dose: 650 mg Artificial Tears (Artificial Tears) 1 drop OU QID PRN PRN Reason: DRY EYES Ascorbic Acid (Vitamin C -) 500 mg PO DAILY [facility] Last Admin: 04/12/17 09:29 Dose: 500 mg Aspirin (Ecotrin -) 81 mg PO DAILY [facility] Last Admin: 04/12/17 09:29 Dose: 81 mg Atorvastatin Calcium (Lipitor -) 20 mg PO HS [facility] Last Admin: 04/12/17 21:09 Dose: 20 mg Digoxin (Lanoxin -) 0.125 mg PO DAILY [facility] Last Admin: 04/12/17 09:29 Dose: 0.125 mg Enoxaparin Sodium (Lovenox -) 30 mg SQ DAILY [facility] Last Admin: 04/12/17 09:29 Dose: 30 mg Ferrous Sulfate (Feosol -) 325 mg PO DAILY [facility] Last Admin: 04/12/17 09:29 Dose: 325 mg Furosemide (Lasix Injection -) 80 mg IVPUSH BID@0600,1400 [facility] Last Admin: 04/13/17 06:15 Dose: 80 mg Insulin Aspart (Novolog Vial Sliding Scale -) 1 vial SQ BIDAC [facility] PRN Reason: Protocol Last Admin: 04/13/17 06:15 Dose: Not Given Magnesium Oxide (Mag-Ox -) 400 mg PO DAILY [facility] Last Admin: 04/12/17 09:29 Dose: 400 mg Metformin HCl (Glucophage -) 500 mg PO BID@0700,1630 [facility] Last Admin: 04/13/17 06:15 Dose: 500 mg Metoprolol Succinate (Toprol Xl -) 50 mg PO BID [facility] Last Admin: 04/12/17 21:09 Dose: 50 mg Pantoprazole Sodium (Protonix -) 40 mg PO DAILY [facility] Last Admin: 04/12/17 09:29 Dose: 40 mg Potassium Chloride (K-Dur -) 40 meq PO DAILY [facility] Last Admin: 04/12/17 09:29 Dose: 40 meq Physical Exam Constitutional: Yes: No Distress/ comfortable. Cardiovascular: Yes: Pulse Irregular Respiratory: Yes: diminished at bases Gastrointestinal: Yes: Normal Bowel Sounds, Soft. No: Distention, Tenderness Edema: Yes (decreased) Problem List - Problems (1) Acute on chronic congestive heart failure Code(s): I50.9 - HEART FAILURE, UNSPECIFIED Qualifiers: Congestive heart failure type: systolic Qualified Code(s): I50.23 - Acute on chronic systolic (congestive) heart failure (2) Afib Code(s): I48.91 - UNSPECIFIED ATRIAL FIBRILLATION Qualifiers: Atrial fibrillation type: persistent Qualified Code(s): I48.1 - Persistent atrial fibrillation (3) Anemia Code(s): D64.9 - ANEMIA, UNSPECIFIED Qualifiers: Anemia type: other cause (4) CAD (coronary artery disease) of artery bypass graft Code(s): I25.810 - ATHEROSCLEROSIS OF CABG W/O ANGINA PECTORIS Qualifiers: [place] vs. transplanted heart: [place] heart Associated angina: without angina Qualified Code(s): I25.810 - Atherosclerosis of coronary artery bypass graft(s) without angina pectoris Assessment/Plan Much better oxygen continue current treatment f/u cxr clinically improving OOB daily d/c planning-- anticipate by tomorrow if better Pt not on Coumadin due to anemia , GI bleeding continue with ASA DVT prophylaxis-- SCD will follow discussed with nursing staff
[2017-04-13] MEDS: MAGNESIUM OXIDE 400 MG TABLET (FP) PO SCH (10:50)
[2017-04-13] MEDS ORDERED: PT OWN MED DRAWER 7, Y5N ONE (10:50)
[2017-04-13] MEDS: POTASSIUM CHLORIDE TABS 20 MEQ TABLET.ER (FP) PO SCH (10:51)
[2017-04-13] MEDS: ASPIRIN COATED 81 MG TABLET.EC PO SCH (10:51)
[2017-04-13] MEDS: ASCORBIC ACID 500 MG TABLET (FP) PO SCH (10:51)
[2017-04-13] MEDS: PANTOPRAZOLE 40 MG TABLET (FP) PO SCH (10:51)
[2017-04-13] MEDS: DIGOXIN 0.125 MG TABLET (FP) PO SCH (10:51)
[2017-04-13] MEDS: FERROUS SO4 325 MG TABLET (FP) PO SCH (10:51)
[2017-04-13] MEDS: METOPROLOL SUCCINATE 50 MG TAB.SR.24H (FP) PO SCH ×2 (10:51→21:08)
[2017-04-13] MEDS: ENOXAPARIN NA (PORCINE) 30 MG/0.3 ML DISP.SYRIN SQ SCH ×2 (10:54→11:00)
--- NOTE | 2017-04-13 11:21 | PN ---
Progress Note (short form) - Note Progress Note: Chief Complaint: chf History of Present Illness: sob and le edema improved. no cp palps dizzy. pt feels back to baseline, has been walking in [place] last night and this AM and feels well. she is asking to go home. Current Medications Generic Name Dose Route Start Last Admin Trade Name Freq PRN Reason Stop Dose Admin Acetaminophen 650 mg 04/06/17 18:59 04/08/17 22:20 Tylenol - PO 650 mg Q4H PRN Administration FEVER OR PAIN Artificial Tears 1 drop 04/12/17 08:29 Artificial Tears OU QID PRN DRY EYES Ascorbic Acid 500 mg 04/11/17 12:00 04/13/17 10:51 Vitamin C - PO 500 mg DAILY [facility] Administration Aspirin 81 mg 04/06/17 10:00 04/13/17 10:51 Ecotrin - PO 81 mg DAILY [facility] Administration Atorvastatin Calcium 20 mg 04/05/17 22:00 04/12/17 21:09 Lipitor - PO 20 mg HS [facility] Administration Digoxin 0.125 mg 04/06/17 10:00 04/13/17 10:51 Lanoxin - PO 0.125 mg DAILY [facility] Administration Enoxaparin Sodium 30 mg 04/08/17 10:00 04/13/17 11:00 Lovenox - SQ Not Given DAILY [facility] Ferrous Sulfate 325 mg 04/11/17 11:45 04/13/17 10:51 Feosol - PO 325 mg DAILY [facility] Administration Furosemide 80 mg 04/13/17 14:00 Lasix - PO BID@0600,1400 [facility] Insulin Aspart 1 vial 04/07/17 07:00 04/13/17 06:15 Novolog Vial Sliding Scale - SQ Not Given BIDAC [facility] Protocol Magnesium Oxide 400 mg 04/06/17 10:00 04/13/17 10:50 Mag-Ox - PO 400 mg DAILY [facility] Administration Metformin HCl 500 mg 04/07/17 07:00 04/13/17 06:15 Glucophage - PO 500 mg BID@0700,1630 [facility] Administration Metoprolol Succinate 50 mg 04/05/17 22:00 04/13/17 10:51 Toprol Xl - PO 50 mg BID [facility] Administration Pantoprazole Sodium 40 mg 04/06/17 10:00 04/13/17 10:51 Protonix - PO 40 mg DAILY [facility] Administration Potassium Chloride 40 meq 04/11/17 11:36 04/13/17 10:51 K-Dur - PO 40 meq DAILY [facility] Administration Vital Signs Period Temp Pulse Resp BP Sys/Peterson Pulse Ox Last 24 Hr 97.4 F-98.3 F 69-94 20-20 100-114/51-66 97 Constitutional: Yes: No Distress, Calm Eyes: No: Sclera Icterus HENT: No: Nasal Congestion Cardiovascular: Yes: Regular Rate and Rhythm, no JVD, Murmur (soft ABIGAIL), S1, S2 , Other (PMI non diplaced). No: Gallop Respiratory: Yes: CTA Bilaterally, No: Accessory Muscle Use, Rales, Wheezes Gastrointestinal: Yes: Normal Bowel Sounds, Soft. No: Tenderness Musculoskeletal: Yes: Other (No kyphosis) Extremities: No: Cold Edema: Yes (trace pretib) Integumentary: No: Jaundice Neurological: Yes: Alert, Oriented (x3) Psychiatric: No: Agitated Labs: CBC, BMP 04/12/17 06:00 04/13/17 06:15 cxr: chf Echo 01/2017: sev red lvef, global hk, nl lv size, nl rv size, sev lae, mild-mod as, mild ar, nl bio mvr, mod tr, rvsp 40-50, mod ao dilatation cath 03/23/14 at [facility]: patent russell to lad, patent svg to om1, patent prior pci in pRCA, mRCA (30-50%), AV continuation 80-90% --> WILL, ISR of pLAD (70-80%), patent D2 stent, TO/ISR of pLCx, TO/ISR OM1. EF 25%. No on pull back. mibi 02/2014: Moderate intensity, moderate size mostly fixed defect of inferior wall consistent with scar with minimal bianca-infarct ischemia. Mild intensity, moderate size reversible defect from mid to base of anterior, anteroseptal, anterolateral browne consistent with mild ischemia. LVEF is severely reduced with global hypokinesis and severely dilated LV. -->sent for cath after this MIBI a/p: 76 yo f hx ICM, CHF (severely reduced LVEF), s/p ICD (single chamber, [employer], placed 07/2013), CAD s/p cabg and prior multiple PCI (cabg 2012 at [facility], russell to lad and svg to om) (cath 02/02/17: patent russell to lad, patent svg to om1, ISR mrca-->ptca; old isr plad/plcx/om1) , MVR (bio) 10/2012, p-afib/flutter (s/p MAZE and DARIO ligation 10/2012), mod-sev , dm, htn, hld, anemia requiring transfusions here with sob/le edema. acute systolic chf: -pt here with vol overload/chf -BNP 18K (prior range 2K-5K) -wt was 139 here in 02/03. 125 on 04/06, 146 on 04/07--erroneous value, ? which -04/08: wt remains up from prior, and incr vs yest (147)--incr lasix to 80mg iv bid -04/09: wt not declining, remains clinically vol overloaded--cont lasix 80 iv bid and add metolazone 5mg x 1 today -reassess tomorrow--if cannot diurese her with high dose ivp lasix plus metolazone, will need to add milrinone for inotropic support - 04/10-24:vol status improving, cr stable, wt down. Cont with current iv lasix/ metolazone. daily chem7. -04/13: pt has diuresed well and is feeling back to baseline. Wt is at prior dc wt from earlier this year. Will change to lasix 80 po bid (was on 40 bid at home) with kcl 20 bid. -cont home bb -not on acei 2/2 to hyperkalemia and low bp in past -s/p ICD--routine interrogation in office per prior schedule mod-severe : -recent dobutamine studies at [facility] showed mod-sev as. She was seen by tavr team but determined she was not a candidate for tavr since her prior mvr was encroaching into lvot. -(no audible murmur on exam--??) -given her comorbidities she is very high risk for repeat open heart surgery so will have to manage with diuretics as doing cad s/p CABG, mult PCIs: -no ischemic ecg changes here, ce's neg x2 -cont lipitor, bb, asa. -after recent ptca in 01/2017 no further cp, plavix stopped after 1 month post PTCA, cont asa 81 p-afib/flutter: -S/p MAZE and DARIO ligation. -In RVR on arrival this time, likely driven by her acute chf decompensation-- now rate controlled -cont bb, dig (will check level) -Could not tolerate coumadin due to anemia requiring frequent transfusions and no clear source. -give h/o DARIO ligation, can consider GUILLERMO or CTA at [place] to look for residual flow, and possible Watchman if flow is demonstrated (or transpericardial DARIO suture if cannot likely tolerate post-Watchman AC/DAPT regimen)--can be orchestrated by EP group there. defer to outpt cardiology f/u with dr omer ( not an acute issue) -ASA only for now, as per prior tx plan htn: -stable on home meds (bp often runs low side) s/p bio MVR: -recent echo with nl bio mvr fxn. h/o anemia with h/o transfusions - hgb at baseline here. - monitor trend (on ASA only, as above) cardiac quijano stable for dc, will f/u in office next week
[2017-04-13] MEDS: FUROSEMIDE 40 MG TABLET (FP) PO SCH (16:39)
[2017-04-13] MEDS: ATORVASTATIN CA 20 MG TABLET (FP) PO SCH (21:05)
[2017-04-14] MEDS: FUROSEMIDE 40 MG TABLET (FP) PO SCH (06:34)
[2017-04-14] MEDS: metFORMIN HCL 500 MG TABLET (FP) PO SCH (06:34)
[2017-04-14] MEDS: INSULIN SLIDING SCALE (NOVOLOG) 1 VIAL SQ SCH (06:37)
[2017-04-14] MEDS: DIGOXIN 0.125 MG TABLET (FP) PO SCH (09:00)
[2017-04-14] MEDS: FERROUS SO4 325 MG TABLET (FP) PO SCH (09:00)
[2017-04-14] MEDS: POTASSIUM CHLORIDE TABS 20 MEQ TABLET.ER (FP) PO SCH (09:01)
[2017-04-14] MEDS: METOPROLOL SUCCINATE 50 MG TAB.SR.24H (FP) PO SCH (09:01)
[2017-04-14] MEDS: PANTOPRAZOLE 40 MG TABLET (FP) PO SCH (09:01)
[2017-04-14] MEDS: MAGNESIUM OXIDE 400 MG TABLET (FP) PO SCH (09:01)
[2017-04-14] MEDS: ENOXAPARIN NA (PORCINE) 30 MG/0.3 ML DISP.SYRIN SQ SCH (09:01)
[2017-04-14] MEDS: ASCORBIC ACID 500 MG TABLET (FP) PO SCH (09:01)
[2017-04-14] MEDS: ASPIRIN COATED 81 MG TABLET.EC PO SCH (09:01)
[2017-04-14 09:03] VITALS: PULSE 73
--- NOTE | 2017-04-14 09:54 | DS ---
Physical Examination Vital Signs: Vital Signs Temperature 97.7 F 04/14/17 06:00 Pulse Rate 73 04/14/17 09:00 Respiratory Rate 18 04/14/17 06:00 Blood Pressure 107/5 04/14/17 06:35 O2 Sat by Pulse Oximetry (%) 96 04/13/17 21:00 Labs: CBC, BMP 04/12/17 06:00 04/13/17 06:15 Discharge Summary Reason For Visit: ACUTE ON CHRONIC CONGESTIVE HEART FAILURE,CKD 3 Current Active Problems Acute on chronic congestive heart failure (Acute) Condition: Improved - Instructions Referrals: Aldo Gipson MD [Primary Care Provider] - Disposition: HOME - Home Medications Comprehensive Discharge Medication List: Ambulatory Orders Magnesium Oxide 400 mg PO DAILY 05/01/14 Aspirin Coated [Ecotrin -] 81 mg PO DAILY #30 tablet.ec 12/21/15 Digoxin [Lanoxin -] 0.125 mg PO DAILY tablet 12/21/15 Pantoprazole Sodium [Protonix] 40 mg PO DAILY 02/26/16 Metoprolol Succinate [Toprol XL -] 50 mg PO BID #60 tab.sr.24h 03/01/16 Atorvastatin Ca [Lipitor] 20 mg PO HS 04/05/17 Furosemide [Lasix -] 80 mg PO BID@0600,1400 #60 tablet 04/14/17 Potassium Chloride [K-Dur -] 40 meq PO DAILY #30 tab 04/14/17
[2017-04-14 10:48] VITALS: BP 100/50; TEMP 97.9
== END 2017-04-14 10:56 | disposition home or self-care (01) | DRG 291 ==
LOC: JER 13:01 → JERBED 17:26 → J5S 04-06 11:27
PROVIDERS: ADMIT Internal Medicine; ATTEND Internal Medicine
DX: I13.0 Hypertensive heart and chronic kidney disease with heart failure and stage 1 through stage 4 chronic kidney disease, or unspecified chronic kidney disease (principal); I50.23 Acute on chronic systolic (congestive) heart failure; I48.92 Unspecified atrial flutter; I48.91 Unspecified atrial fibrillation; I35.0 Nonrheumatic aortic (valve) stenosis; I25.10 Atherosclerotic heart disease of native coronary artery without angina pectoris; Z98.61 Coronary angioplasty status; Z95.1 Presence of aortocoronary bypass graft; N18.3 Chronic kidney disease, stage 3 (moderate); I25.5 Ischemic cardiomyopathy
CPT/HCPCS: 36415; 71010-TC; 80048; 80053; 80162; 81003; 81015; 83735; 83880; 84439; 84443; 84484; 85025; 85027; 86850; 86900; 86901; 93005; 93010; 97116-GP; 97161-GP; 99284-25

== ENCOUNTER 2017-12-28 10:58 | Observation (INO) | payer OTHER ==
[2017-12-28 11:06] VITALS: BMI 22.6
[2017-12-28 11:37] LABS: BASO % 0.8 % (0-2.0); EOS % 5.3 % (0-4.5); HEMATOCRIT 28.6 % (32.4-45.2); HEMOGLOBIN 9.6 GM/dL (10.7-15.3); LYMPH % 6.9 % (8-40); MCH 28.5 pg (25.7-33.7); MCHC 33.6 g/dl (32.0-36.0); MEAN PLT VOLUME 7.7 fl (7.5-11.1); MONO % 16.3 % (3.8-10.2); NEUT % 70.7 % (42.8-82.8); PLATELET COUNT 156 K/MM3 (134-434); RBC 3.36 M/mm3 (3.60-5.2); RDW 30.4 % (11.6-15.6); WHITE BLOOD COUNT 4.1 K/mm3 (4.0-10.0)
--- NOTE | 2017-12-28 11:42 | PDOC ---
History of Present Illness - General History Source: Patient - History of Present Illness [place] Contraindications (Core Measure): Yes: Pacemaker <Morales Vasquez - Last Filed: 12/28/17 14:02> - General History Source: Patient Exam Limitations: No Limitations <Franco Weinstein - Last Filed: 12/28/17 14:32> - General Chief Complaint: Chest Pain Stated Complaint: CHEST PAIN Time Seen by Provider: 12/28/17 11:19 - History of Present Illness Initial Comments: 12/28/17 14:32 The patient is a 77 year old female, with a significant past medical history of ICM, CHF (EF 31%), s/p ICD (single chamber, [employer], placed 07/2013), CAD (s/p CABG and PCI) , MVR (bio) 10/2012, p-afib/flutter (s/p MAZE and DARIO ligation 10/2012), p-svt, diabetes, hypertension, hyperlipidemia, anemia requiring transfusions, and colon cancer( chemotherapy 1 month ago, radiation therapy 2 weeks ago), who presents to the emergency department with chest pain since last night. The patient reports her pain was localized at the left sternal border and was nonradiating in nature. She reports she does not remember what type of pain it was, but it was constant until this morning when she took two 81 mg Aspirin. Patient reports she has had this pain before, and reports it is usually relieved with Aspirin. Patient denies any associated shortness of breath, diaphoresis, palpitations, or lower extremity edema. She denies any recent fever, chills, cough, headache, or dizziness. She reports diarrhea for the past 2 weeks s/p radiation therapy, but denies any abdominal pain, nausea, vomiting, melena, or hematochezia. She denies any dysuria, hematuria, frequency, or urgency. She denies any recent travel or sick contacts. Allergies: NKDA Past Surgical History: CABG, pacemaker placement Social History: Non smoker. No ETOH or recreational drug use. (Franco Weinstein) Past History - Past Medical History Anemia: Yes Asthma: Yes Cancer: Yes (uterus) Cardiac Disorders: Yes (A FIB,CABG, PPM, ICD, MVR) CVA: No COPD: No CHF: No Dementia: No Diabetes: Yes GI Disorders: No Disorders: No HTN: Yes Hypercholesterolemia: Yes Liver Disease: No Seizures: No Thyroid Disease: No - Surgical History Abdominal Surgery: No Appendectomy: No Cardiac Surgery: Yes (bypass PACEMAKER) Cholecystectomy: No Lung Surgery: No Orthopedic Surgery: No - Immunization History Immunization Up to Date: No - Suicide/Smoking/Psychosocial Hx Smoking Status: No Smoking History: Never smoked Have you smoked in the past 12 months: No Number of Cigarettes Smoked Daily: 12 If you are a former smoker, when did you quit?: 1995 Information on smoking cessation initiated: No Hx Alcohol Use: No Drug/Substance Use Hx: No Substance Use Type: None Hx Substance Use Treatment: No <Morales Vasquez - Last Filed: 12/28/17 14:02> <Franco Weinstein - Last Filed: 12/28/17 14:32> - Past Medical History Allergies/Adverse Reactions: Allergies Allergy/AdvReac Type Severity Reaction Status Date / Time No Known Allergies Allergy Verified 12/28/17 11:02 Home Medications: Ambulatory Orders Magnesium Oxide 400 mg PO DAILY 05/01/14 Aspirin Coated [Ecotrin -] 81 mg PO DAILY #30 tablet.ec 12/21/15 Digoxin [Lanoxin -] 0.125 mg PO DAILY tablet 12/21/15 Pantoprazole Sodium [Protonix] 40 mg PO DAILY 02/26/16 Metoprolol Succinate [Toprol XL -] 50 mg PO BID #60 tab.sr.24h 03/01/16 Atorvastatin Ca [Lipitor] 20 mg PO HS 04/05/17 Furosemide [Lasix -] 80 mg PO BID@0600,1400 #60 tablet 04/14/17 Potassium Chloride [K-Dur -] 40 meq PO DAILY #30 tab 04/14/17 Cardiac Specific PMH - Complaint Specific PMHX Pacemaker: Yes <Morales Vasquez - Last Filed: 12/28/17 14:02> Review of Systems <Morales Vasquez - Last Filed: 12/28/17 14:02> - Review of Systems Able to Perform ROS?: Yes <Franco Weinstein - Last Filed: 12/28/17 14:32> - Review of Systems Comments:: 12/28/17 14:32 Constitutional: Pt denies Fever, Chills, weakness HEENT: Denies vision changes, sore throat Respiratory: Denies cough, sob, hemoptysis Cardiac: +Chest pain. Denies palpitations, lightheadedness, leg swelling Abd/GI: +Diarrhea. Denies abd pain, nausea, vomiting, blood per rectum, melena : Denies dysuria, frequency, discharge Musculoskeletal: Denies back pain, joint swelling Skin: Denies bruising, erythema, rash Neurological: Denies headache, numbness, focal weakness, tingling, ataxia, weakness Hematologic: Denies anemia, easy bruising, easy bleeding (Weinstein,Giomilsy) *Physical Exam <Morales Vasquez - Last Filed: 12/28/17 14:02> <Indigo Weinsteinomfarhanay - Last Filed: 12/28/17 14:32> - Vital Signs Last Vital Signs Temp Pulse Resp BP Pulse Ox 97.7 F 68 18 84/45 100 12/28/17 11:02 12/28/17 13:04 12/28/17 13:04 12/28/17 13:04 12/28/17 13:04 - Physical Exam Comments: 12/28/17 14:32 GENERAL: The patient is awake, alert, and fully oriented, Nontoxic - in no acute distress. HEAD: Normocephalic, atraumatic. EYES: extraocular movements intact, sclera anicteric, conjunctiva clear. ENT: Normal voice, Moist mucous membranes. NECK: Normal range of motion, supple LUNGS: Breath sounds equal, clear to auscultation bilaterally. No wheezes, no rhonchi, no rales. HEART: slightly irregular, +systolic murmer ABDOMEN: Soft, nontender, No guarding, no rebound. . No CVA tenderness EXTREMITIES: Normal range of motion, no edema. NEUROLOGICAL: No facial assymetry, Normal speech, PSYCH: Normal mood, normal affect. SKIN: Warm, Dry, normal turgor, (Weinstein,Giomilsy) Heart Score/ECG Review <Morales Vasquez - Last Filed: 12/28/17 14:02> <Trey Weinsteiny - Last Filed: 12/28/17 14:32> - ECG Impressions Comment:: 12/28/17 13:19 Twelve-lead EKG was performed and reviewed by me. Atrial fibrillation Rate of 84 PVCs present Left Palm branch block No significant change when compared with prior EKG (Morales Vasquez) ED Treatment Course - LABORATORY CBC & Chemistry Diagram: 12/28/17 11:30 12/28/17 11:30 <Morales Vasquez - Last Filed: 12/28/17 14:02> - LABORATORY CBC & Chemistry Diagram: 12/28/17 11:30 12/28/17 11:30 <Franco Weinstein - Last Filed: 12/28/17 14:32> - ADDITIONAL ORDERS Additional order review: Laboratory Results 12/28/17 12/28/17 12/28/17 11:30 11:30 11:30 PT with INR 11.60 INR 1.03 PTT (Actin FS) 35.0 H D Sodium 143 Potassium 4.3 Chloride 107 Carbon Dioxide 30 Anion Gap 6 L BUN 58 H Creatinine 1.8 H Creat Clearance w eGFR 27.14 Random Glucose 119 H Calcium 8.4 L Magnesium 2.0 Total Bilirubin 0.5 D AST 15 ALT 13 Alkaline Phosphatase 135 H Creatine Kinase 33 Troponin I 0.05 B-Natriuretic Peptide 6513.92 H Total Protein 6.9 Albumin 3.3 L Digoxin 1.5598 12/28/17 11:30 RBC 3.36 L D MCV 85.0 MCHC 33.6 RDW 30.4 H MPV 7.7 D Neutrophils % 70.7 Lymphocytes % 6.9 L D Monocytes % 16.3 H Eosinophils % 5.3 H D Basophils % 0.8 Medical Decision Making <Morales Vasquez - Last Filed: 12/28/17 14:02> <Franco Weinstein - Last Filed: 12/28/17 14:32> - Medical Decision Making 12/28/17 11:40 77y F hx of anemia, CHF (severe reduced LVEF), CAD s/p CABG and mltiple PCIs, afib s/p ICD , htn, colon ca s/p chemo 1 month ago and radiation 2 weeks ago presents with complaint of chest pain since last night untli this morning, alleviated with 2 baby ASA this morning, pain was left sided, nonradiating, but does not remember nature of pain. No associated sob, palpitations, lightheadedness, n/v, diaphoresis. pt nots similar pain in the past that resolves wit hASA, but pain wa smore persistent today. Pt endorses some diarrhea for the psat 2 weeks, that is nonbloody,non melanotic. pt denies any abd pain, fever/chills, cough or other infectious symtoms. on exam pt in no distress, with unremarkable exam beside +murmer card exam rrr abd soft nontender pulm clear ddx - acs, diarrhea possibly post radiation will r/o ACS will ck lytes for diarrhea will d/w PMD/cards anticipate obs A portion of this note was documented by scribe services under my direction. I have reviewed the details of the note, within reason, and agree with the documentation with the following case summary and management plan written by me 12/28/17 13:[address] truong recommends observation for further mangment labs reviewed bnp elevated trop neg x 1 12/28/17 14:02 pt was reassessed, currently in no acute distress Case was discussed with Dr. Patel agree with obs for further management stable for observation telemetriy Case discussed in detail with admitting physician including history, physical exam and ancillary studies. Admitting physician has assumed care for the patient, will follow all pending diagnostics and will complete the evaluation and treatment. (Morales Vasquez) *DC/Admit/Observation/Transfer - Discharge Dispostion Decision to Admit order: Yes <Morales Vasquez - Last Filed: 12/28/17 14:02> <Franco Weinstein - Last Filed: 12/28/17 14:32> Diagnosis at time of Disposition: Chest pain Qualifiers: Chest pain type: unspecified Qualified Code(s): R07.9 - Chest pain, unspecified - Discharge Dispostion Condition at time of disposition: Stable - Referrals Referrals: Aldo Gipson MD [Primary Care Provider] - - Patient Instructions - Post Discharge Activity - Attestations Scribe Attestion: 12/28/17 14:32 Documentation prepared by Franco Weinstein, acting as medical office rep for Morales Vasquez MD. (Franco Weinstein)
[2017-12-28 11:50] LABS: INR 1.03 (0.82-1.09); PROTHROMBIN TIME (PATIENT) 11.6 SEC (9.7-13.0)
[2017-12-28 12:00] LABS: ALBUMIN 3.3 g/dl (3.4-5.0); ANION GAP 6 (8-16); BILIRUBIN,TOTAL 0.5 mg/dL (0.2-1.0); BLOOD UREA NITROGEN 58 mg/dL (7-18); CALCIUM 8.4 mg/dL (8.5-10.1); CHLORIDE 107 mmol/L (98-107); CO2 30 mmol/L (21-32); CREATININE 1.8 mg/dL (0.55-1.02); GLUCOSE,RANDOM 119 mg/dL (74-106); POTASSIUM 4.3 mmol/L (3.5-5.1); SGOT/AST 15 U/L (15-37); SGPT/ALT 13 U/L (12-78); SODIUM 143 mmol/L (136-145); TOT PROT 6.9 g/dl (6.4-8.2)
[2017-12-28 12:12] LABS: ALK PHOS 135 U/L (45-117); N-TERMINAL BNP 6513.92 pg/ml (5-450)
[2017-12-28] MEDS ORDERED: ACETAMINOPHEN 325 MG TABLET (FP) PO PRN (17:29)
--- NOTE | 2017-12-28 17:35 | HP ---
Admitting History and Physical - Primary Care Physician PCP: Aldo Gipson - Admission Chief Complaint: cp History of Present Illness: pt seen in tele chart reviewed case discussed with er physician. Er records reviewed- Per er records The patient is a 77 year old female, with a significant past medical history of ICM, CHF (EF 31%), s/p ICD (single chamber, [employer], placed 07/2013), CAD (s/p CABG and PCI) , MVR (bio) 10/2012, p-afib/flutter (s/p MAZE and DARIO ligation 10/2012), p-svt, diabetes, hypertension, hyperlipidemia, anemia requiring transfusions, and colon cancer( chemotherapy 1 month ago, radiation therapy 2 weeks ago), who presents to the emergency department with chest pain since last night. The patient reports her pain was localized at the left sternal border and was nonradiating in nature. She reports she does not remember what type of pain it was, but it was constant until this morning when she took two 81 mg Aspirin. Patient reports she has had this pain before, and reports it is usually relieved with Aspirin. Patient denies any associated shortness of breath, diaphoresis, palpitations, or lower extremity edema. She denies any recent fever, chills, cough, headache, or dizziness. She reports diarrhea for the past 2 weeks s/p radiation therapy, but denies any abdominal pain, nausea, vomiting, melena, or hematochezia. She denies any dysuria, hematuria, frequency, or urgency. She denies any recent travel or sick contacts. Allergies: NKDA Past Surgical History: CABG, pacemaker placement Social History: Non smoker. No ETOH or recreational drug use Pt at present comfortable cm - ve x1 breathing ok. denies sob. denies cp now no fever/ chills History Source: Patient, Medical Record - Past Medical History Cardiovascular: Yes: AFIB, CAD (s/p CABG-- 2012, stent in 01/2017), CHF (s/p AICD ), HTN Gastrointestinal: No: GI Bleed Heme/Onc: Yes: Anemia, Cancer (vaginal cancer) Endocrine: Yes: Diabetes Mellitus - Past Surgical History Past Surgical History: Yes: CABG, Permanent Pacemaker - Smoking History Smoking history: Never smoked Have you smoked in the past 12 months: No Aproximately how many cigarettes per day: 12 If you are a former smoker, when did you quit?: 1995 - Alcohol/Substance Use Hx Alcohol Use: No - Social History History of Recent Travel: No Home Medications - Allergies Allergies/Adverse Reactions: Allergies Allergy/AdvReac Type Severity Reaction Status Date / Time No Known Allergies Allergy Verified 12/28/17 11:02 - Home Medications Home Medications: Ambulatory Orders Magnesium Oxide 400 mg PO DAILY 05/01/14 Aspirin Coated [Ecotrin -] 81 mg PO DAILY #30 tablet.ec 12/21/15 Digoxin [Lanoxin -] 0.125 mg PO DAILY tablet 12/21/15 Pantoprazole Sodium [Protonix] 40 mg PO DAILY 02/26/16 Metoprolol Succinate [Toprol XL -] 50 mg PO BID #60 tab.sr.24h 03/01/16 Atorvastatin Ca [Lipitor] 20 mg PO HS 04/05/17 Furosemide [Lasix -] 80 mg PO BID@0600,1400 #60 tablet 04/14/17 Potassium Chloride [K-Dur -] 40 meq PO DAILY #30 tab 04/14/17 Review of Systems Findings/Remarks: see yocha dehe Physical Examination Vital Signs: Vital Signs Temperature 97.7 F 12/28/17 11:02 Pulse Rate 80 12/28/17 16:22 Respiratory Rate 18 12/28/17 16:22 Blood Pressure 104/60 12/28/17 16:22 O2 Sat by Pulse Oximetry (%) 100 12/28/17 16:22 Constitutional: Yes: No Distress, Calm Eyes: Yes: Conjunctiva Clear Neck: Yes: Supple Cardiovascular: Yes: Regular Rate and Rhythm Respiratory: Yes: CTA Bilaterally Gastrointestinal: Yes: Soft Edema: No Neurological: Yes: Alert Psychiatric: Yes: Alert Labs: CBC, BMP 12/28/17 11:30 12/28/17 11:30 Imaging - Results Chest X-ray: Report Reviewed EKG: Report Reviewed Problem List - Problems (1) Chest pain Code(s): R07.9 - CHEST PAIN, UNSPECIFIED Qualifiers: Chest pain type: unspecified Qualified Code(s): R07.9 - Chest pain, unspecified (2) Anemia Code(s): D64.9 - ANEMIA, UNSPECIFIED Qualifiers: Anemia type: other cause (3) CAD (coronary artery disease) of artery bypass graft Code(s): I25.810 - ATHEROSCLEROSIS OF CABG W/O ANGINA PECTORIS Qualifiers: [place] vs. transplanted heart: [place] heart Associated angina: without angina Qualified Code(s): I25.810 - Atherosclerosis of coronary artery bypass graft(s) without angina pectoris (4) CHF (congestive heart failure) Code(s): I50.9 - HEART FAILURE, UNSPECIFIED Qualifiers: Qualified Code(s): I50.9 - Heart failure, unspecified Assessment/Plan Monitor on tele meds reviewed continue present care serial cardiac markers cardiology to follow will follow
--- NOTE | 2017-12-28 18:41 | CON.CARD ---
Cardiology Consult (text) - Consultation Consultation Note: cc: cp hpi: 77 yo f hx Ischemic cardiomyopathy s/p ICD (single chamber, [employer], placed 07/2013), CAD s/p cabg and prior multiple PCI (cabg 10/2012 at [facility], russell to lad and svg to om) , MVR (bio) 10/2012, p-afib/flutter (s/p MAZE and DARIO ligation 10/2012), mod-sev , dm, htn, hld, anemia requiring transfusions and recent suspicion for possible GI neoplasm who p/w cp. States an episode of CP over the left lateral chest that radiated to the back and down her shoulder. No ttp at site. Discomfort woke her up from sleep and lasted a few hours. States pain resolved after taking 4 asa at home. no recent anginal sx's leading up to this event. endorses + chronic dietary indiscretions. recent increase in desai over the past week. adherent to lasix No palps, dizzy, loc, pnd, orthopnea. No f/c/s, n/v/d, cough, congestion, rash, visual disturbances, h/a cards: negra pmh: per hpi psh: cabd, mvr, icd social: former tobacco, no etoh or illicits fam: mother with unknown heart problems, daughter with unknown open heart surgery. ros: per hpi; meds: Ambulatory Orders Magnesium Oxide 400 mg PO DAILY 05/01/14 Aspirin Coated [Ecotrin -] 81 mg PO DAILY #30 tablet.ec 12/21/15 Digoxin [Lanoxin -] 0.125 mg PO DAILY tablet 12/21/15 Pantoprazole Sodium [Protonix] 40 mg PO DAILY 02/26/16 Metoprolol Succinate [Toprol XL -] 50 mg PO BID #60 tab.sr.24h 03/01/16 Atorvastatin Ca [Lipitor] 20 mg PO HS 04/05/17 Furosemide [Lasix -] 80 mg PO BID@0600,1400 #60 tablet 04/14/17 Potassium Chloride [K-Dur -] 40 meq PO DAILY #30 tab 04/14/17 Current Medications Acetaminophen (Tylenol -) 650 mg PO Q4H PRN PRN Reason: PAIN LEVEL 1-5 Aspirin (Ecotrin -) 81 mg PO DAILY ZAY Atorvastatin Calcium (Lipitor -) 20 mg PO HS ZAY Digoxin (Lanoxin -) 0.125 mg PO DAILY [facility]AY Furosemide (Lasix -) 80 mg PO BID@0600,1400 ZAY Magnesium Oxide (Mag-Ox -) 400 mg PO DAILY ZAY Metoprolol Succinate (Toprol Xl -) 50 mg PO BID ZAY Pantoprazole Sodium (Protonix -) 40 mg PO DAILY [facility] Potassium Chloride (K-Dur -) 40 meq PO DAILY [facility] pe: Vital Signs - 24 hr 12/28/17 12/28/17 12/28/17 11:02 11:38 13:04 Temperature 97.7 F Pulse Rate 46 L Pulse Rate [ 68 Apical] Respiratory 20 18 Rate Blood Pressure 96/35 Blood Pressure [Left Arm] Blood Pressure 84/45 [Right Arm] O2 Sat by Pulse 98 100 100 Oximetry (%) 12/28/17 12/28/17 12/28/17 15:31 16:22 17:30 Temperature Pulse Rate Pulse Rate [ 64 80 Apical] Respiratory 18 18 Rate Blood Pressure Blood Pressure 116/39 [Left Arm] Blood Pressure 104/60 [Right Arm] O2 Sat by Pulse 100 100 100 Oximetry (%) Intake & Output 12/26/17 12/27/17 12/28/17 12/29/17 07:59 07:59 07:59 07:59 Weight 128 lb nad, calm +JVD, neck supple rrr s1s2 2/6 murmur at sternal border. ctab, nl eff aaox3 no e/c/c abd nt nd pos bs no jaundice diaphoresis pos dp pt, no carotid bruits aaox3 CBC, BMP 12/28/17 11:30 12/28/17 11:30 Laboratory Tests 04/05/17 04/13/17 12/28/17 14:21 06:15 11:30 Creatinine 1.3 H Magnesium Total Bilirubin 0.5 D AST 15 ALT 13 Alkaline Phosphatase 135 H Creatine Kinase 33 Troponin I 0.05 B-Natriuretic Peptide 69976.25 H 6513.92 H Albumin 3.3 L Digoxin 1.5598 12/28/17 11:30 Creatinine Magnesium 2.0 Total Bilirubin AST ALT Alkaline Phosphatase Creatine Kinase Troponin I B-Natriuretic Peptide Albumin Digoxin ecg sr with av delay, pac's, pvc's vs. underlying afib with occasional aberrant conduction tele: demand v-pacing, frequent ectopy, bigeminy. cxr: improved from priors. echo 01/2017: sev red lvef, global hk, nl lv size, nl rv size, sev lae, mild-mod as, mild ar, nl bio mvr, mod tr, rvsp 40-50, mod ao dilatation (cath 02/02/17: patent russell to lad, patent svg to om1, ISR mrca-->ptca; old isr plad/plcx/om1) cath 03/23/14 at [facility]: patent russell to lad, patent svg to om1, patent prior pci in pRCA, mRCA (30-50%), AV continuation 80-90% --> WILL, ISR of pLAD (70-80%), patent D2 stent, TO/ISR of pLCx, TO/ISR OM1. EF 25%. No on pull back. mibi 02/2014: Moderate intensity, moderate size mostly fixed defect of inferior wall consistent with scar with minimal bianca-infarct ischemia. Mild intensity, moderate size reversible defect from mid to base of anterior, anteroseptal, anterolateral browne consistent with mild ischemia. LVEF is severely reduced with global hypokinesis and severely dilated LV. -->sent for cath after this MIBI a/p: 77 yo f hx Ischemic cardiomyopathy s/p ICD (single chamber, [employer], placed 07/2013), CAD s/p cabg and prior multiple PCI (cabg 10/2012 at [facility], russell to lad and svg to om) , MVR (bio) 10/2012, p-afib/flutter (s/p MAZE and DARIO ligation 10/2012), mod-sev , dm, htn, hld, anemia requiring transfusions and recent suspicion for possible GI neoplasm who p/w cp. CP - patient with advanced and not a candidate for intervention. Possible progression of disease. - con't abram. currently sx free. - pain throughout left lateral chest, r/o shock. will arrange for interrogation in the morning. con't bb. systolic chf: -not on acei 2/2 to hyperkalemia and low bp in past - recent abd ct on 12/25 --> no evidence of pulmonary edema/eff at lung bases. -appears euvolemic con't home lasix, hold standing kcl while with brinda and normal k. - daily weights, i/o's. : - dobutamine studies at [facility] showed mod-sev as. She was seen by tavr team but determined she was not a candidate for tavr since her prior mvr was encroaching into lvot and was too close to av. -given her comorbidities she is very high risk for repeat open hear surgery so will have to manage with diuretics as doing - currently sbp's running low. monitor closely, preference is to avoid hypotension with advanced cad s/p CABG, mult PCIs: last ptca 12/2016. -ischemic eval as above. -cont lipitor, bb, asa. -after recent ptca in 01/2017 no further cp, plavix stopped after 1 month post PTCA, cont asa 81 p-afib/flutter: -S/p MAZE and DARIO ligation. -Could not tolerate coumadin due to anemia requiring frequent transfusions and no clear source. Has DARIO ligation so embolic risk likely low regardless. Cont asa for now. -cont bb, dig. level ok. htn: - runs low with sbp's typically 90's-100's. monitor on bb. s/p bio MVR: -no signs of valvular decompensation anemia with h/o transfusions - possible new GI neoplasm per office notes - hgb at baseline here. BRINDA - monitor creatinine trend mulltiple high risk comorbidities, consider goals of care discussions.
[2017-12-28] MEDS: ATORVASTATIN CA 20 MG TABLET (FP) PO SCH (21:52)
[2017-12-29] MEDS: FUROSEMIDE 40 MG TABLET (FP) PO SCH ×2 (06:25→16:05)
[2017-12-29 07:45] LABS: ANION GAP 7 (8-16); BLOOD UREA NITROGEN 53 mg/dL (7-18); CALCIUM 8.2 mg/dL (8.5-10.1); CHLORIDE 107 mmol/L (98-107); CO2 27 mmol/L (21-32); GLUCOSE,RANDOM 110 mg/dL (74-106); POTASSIUM 4.7 mmol/L (3.5-5.1); SODIUM 141 mmol/L (136-145)
[2017-12-29 07:57] LABS: CHOLESTEROL 153 mg/dL (50-200); CREATININE 1.5 mg/dL (0.55-1.02); HDL CHOLESTEROL 38 mg/dL (40-60); TRIGLYCERIDES 343 mg/dL (35-160)
--- NOTE | 2017-12-29 08:22 | EKG ---
Test Reason : Blood Pressure : / mmHG Vent. Rate : 084 BPM Atrial Rate : 084 BPM P-R Int : 000 ms QRS Dur : 152 ms QT Int : 404 ms P-R-T Axes : 000 -58 110 degrees QTc Int : 477 ms SINUS RHYTHM WITH 1ST DEGREE A-V BLOCK WITH PREMATURE ATRIAL COMPLEXES WITH ABERRANT CONDUCTION LEFT BUNDLE BRANCH BLOCK ABNORMAL ECG WHEN COMPARED WITH ECG OF 05-APR-2017 13:15, SINUS RHYTHM HAS REPLACED ATRIAL FIBRILLATION VENT. RATE HAS DECREASED BY 44 BPM Confirmed by JAREK ROMERO, AUDI ([id number]) on 12/29/2017 8:22:33 AM Referred By: Confirmed By:AUDI TILLEY MD
--- NOTE | 2017-12-29 09:09 | PN ---
Progress Note, Physician Chief Complaint: cp History of Present Illness: no more cp. denies sob, palpitations, diaphoresis no cigs - Current Medication List Current Medications: Active Medications Acetaminophen (Tylenol -) 650 mg PO Q4H PRN PRN Reason: PAIN LEVEL 1-5 Aspirin (Ecotrin -) 81 mg PO DAILY [facility] Atorvastatin Calcium (Lipitor -) 20 mg PO HS [facility] Last Admin: 12/28/17 21:52 Dose: 20 mg Digoxin (Lanoxin -) 0.125 mg PO DAILY [facility] Furosemide (Lasix -) 80 mg PO BID@0600,1400 [facility] Last Admin: 12/29/17 06:25 Dose: 80 mg Magnesium Oxide (Mag-Ox -) 400 mg PO DAILY [facility] Metoprolol Succinate (Toprol Xl -) 50 mg PO BID [facility] Last Admin: 12/28/17 21:52 Dose: 50 mg Pantoprazole Sodium (Protonix -) 40 mg PO DAILY [facility] - Objective Vital Signs: Vital Signs Temperature 98.6 F 12/29/17 05:00 Pulse Rate 72 12/29/17 05:00 Respiratory Rate 16 12/29/17 05:00 Blood Pressure 98/46 12/29/17 05:00 O2 Sat by Pulse Oximetry (%) 96 12/29/17 05:00 Constitutional: Yes: No Distress, Calm Eyes: No: Sclera Icterus HENT: No: Nasal Congestion Cardiovascular: Yes: Regular Rate and Rhythm, JVD (8-10 cm), Murmur (soft murmur RUSB (ABIGAIL)), S1, S2, Other (PMI non diplaced). No: Gallop Respiratory: Yes: CTA Bilaterally. No: Accessory Muscle Use, Rales, Wheezes Gastrointestinal: Yes: Normal Bowel Sounds, Soft. No: Tenderness Musculoskeletal: Yes: Other (No kyphosis) Extremities: No: Cold Edema: No Integumentary: No: Jaundice Neurological: Yes: Alert, Oriented (x3) Psychiatric: No: Agitated Labs: CBC, BMP 12/28/17 11:30 INR, PTT INR 1.03 (0.82-1.09) 12/28/17 11:30 Assessment/Plan ecg: sr with av delay, pac's vs underlying afib with occasional aberrant conduction. no ischemic changes vs prior 04/05 cxr: clear lungs/pleura echo 01/2017: sev red lvef, global hk, nl lv size, nl rv size, sev lae, mild-mod as, mild ar, nl bio mvr, mod tr, rvsp 40-50, mod ao dilatation dobutamine echo ([place]): [id number] cath 02/03: patent rizo to lad, patent svg to om1, ISR mrca-->ptca; old isr plad , plcx (NAVAL SCIENCE TEACHER), om1 (NAVAL SCIENCE TEACHER) tele: NSR with PVCs/APCs. Vs>Glass Beveler. NSVT x4b a/p: 77 yo f hx Ischemic cardiomyopathy s/p ICD (single chamber, [employer], placed 07/2013), CAD s/p cabg and prior multiple PCI (cabg 10/2012 at [facility], rizo to lad and svg to om) , MVR (bio) 10/2012, p-afib/flutter (s/p MAZE and DARIO ligation 10/2012), mod-sev , dm, htn, hld, anemia requiring transfusions and recent suspicion for possible GI neoplasm who p/w cp. CP - L pectoral CP occurred during the night--pt states DID NOT wake her from sleep , she was awake already. - lasted approx 1-2 min, no radiation or "tearing" sensation, no assctd CV sx's (denies sob, diaph, LH), can't recall if was positional or pleuritic. noted pain in L scapular region shortly after CP resolved. - sx's not highly suspicious for CV etiology given short duration but not impossible--? m-skel etiology. - no clinical concern for ACS (trop.s 0.05-->0.1 x3. trend not c/w ACS. no ischemic ecg changes). - ? secondary to severe --no tx available for this, per prior dr omer w/u and plan - await ICD interrogation--per RN, verbal from company was "no events seen". faxed report will be reviewed when it arrives advanced systolic chf: -not on acei 2/2 to hyperkalemia and low bp in past -BNP 6K (prior range 2K-18K). CXR clear. -clinically hypervolemic with JVD. -bun/creat up from prior, bp trend slightly lower (baseline BP range previously 90s-110s, here running 90s-100s with rare dips to 80s)--these findings likely due to progressing (end stage?) low-output systolic CHF/severe . -would continue BB and lasix at current doses and tolerate BPs >90s (with rare dips to 80s ok in absence of sx's) : - dobutamine studies at [facility] showed mod-sev as. She was seen by tavr team but determined she was not a candidate for tavr since her prior mvr was encroaching into lvot and was too close to av. presumably was felt prohibitive risk for reop SAVR (vs ? pt declined)--per prior plan as per dr omer cad s/p CABG, mult PCIs: -cath 2017 with patent RIZO to LAD and SVG to OM1. severe ISR in RCA-->PTCA'd. no residual ischemic substrate -cont lipitor, bb, asa. p-afib/flutter: -s/p MAZE and DARIO ligation. due to intolerance to coumadin (sec to anemia requiring frequent transfusions and no identifiable treatable source), AC has been previously stopped and she has been managed with ASA alone, per dr omer. continue same -cont bb, dig. -dig level 1.5 here, retrospective data suggesting in CHF pts lowest mortality with <0.9 dig level--consider change to QOD dosing (defer to dr omer outpt f/ u). s/p bio MVR: -no signs of valvular decompensation BRINDA: -creat 1.8 here, baseline 1.3 -down to 1.5 today -suspect related to hypoperfusion from low cardiac output -cont present lasix, observe creat trend anemia with h/o transfusions - possible new GI neoplasm per office notes - hgb at baseline here (8s-9s)
[2017-12-29] MEDS ORDERED: POTASSIUM CHLORIDE TABS 20 MEQ TABLET.ER (FP) PO SCH (10:00)
[2017-12-29] MEDS: ASPIRIN COATED 81 MG TABLET.EC PO SCH (10:09)
[2017-12-29] MEDS: MAGNESIUM OXIDE 400 MG TABLET (FP) PO SCH (10:09)
[2017-12-29] MEDS: PANTOPRAZOLE 40 MG TABLET (FP) PO SCH (10:09)
[2017-12-29] MEDS: DIGOXIN 0.125 MG TABLET (FP) PO SCH (10:09)
--- NOTE | 2017-12-29 13:45 | PN ---
Progress Note (short form) - Note Progress Note: Pt seen/ examined comfortable denies cp. +ve troponins Cardiology f/u noted denies sob Vital Signs Temp 97.2 F L 12/29/17 09:00 Pulse 63 12/29/17 10:09 Resp 18 12/29/17 09:00 BP 96/47 12/29/17 09:00 Pulse Ox 96 12/29/17 05:00 Intake & Output 12/28/17 12/29/17 12/29/17 23:59 11:59 23:59 Intake Total 190 100 240 Balance 190 100 240 Weight 128 lb Intake: IV 10 Saline Lock 10 Oral 180 100 240 Other: Voiding Method Toilet Toilet Toilet # Unmeasured Voids Void 2 2 Bowel Movement No No Height 5 ft 3 in Body Mass Index (BMI) 22.6 Weight Measurement Method Stated by Patient Active Medications Acetaminophen (Tylenol -) 650 mg PO Q4H PRN PRN Reason: PAIN LEVEL 1-5 Aspirin (Ecotrin -) 81 mg PO DAILY [facility] Last Admin: 12/29/17 10:09 Dose: 81 mg Atorvastatin Calcium (Lipitor -) 20 mg PO [facility] Last Admin: 12/28/17 21:52 Dose: 20 mg Digoxin (Lanoxin -) 0.125 mg PO DAILY [facility] Last Admin: 12/29/17 10:09 Dose: 0.125 mg Furosemide (Lasix -) 80 mg PO BID@0600,1400 [facility] Last Admin: 12/29/17 06:25 Dose: 80 mg Magnesium Oxide (Mag-Ox -) 400 mg PO DAILY [facility] Last Admin: 12/29/17 10:09 Dose: 400 mg Metoprolol Succinate (Toprol Xl -) 50 mg PO BID [facility] Last Admin: 12/29/17 10:09 Dose: 50 mg Pantoprazole Sodium (Protonix -) 40 mg PO DAILY [facility] Last Admin: 12/29/17 10:09 Dose: 40 mg Abnormal Lab Results 12/28/17 12/29/17 12/29/17 19:00 03:14 06:15 Anion Gap 7 L BUN 53 H Creatinine 1.5 H Random Glucose 110 H Calcium 8.2 L Troponin I 0.13 H 0.13 H Triglycerides 343 H HDL Cholesterol 38 L 12/29/17 06:15 Anion Gap BUN Creatinine Random Glucose Calcium Troponin I 0.12 H Triglycerides HDL Cholesterol Physical Examination Constitutional: Yes: No Distress, Calm and comfortable Eyes: Yes: Conjunctiva Clear Neck: Yes: Supple. no jvd Cardiovascular: Yes: Regular Rate and Rhythm Respiratory: Yes: CTA Bilaterally Gastrointestinal: Yes: Soft/ non tender Edema: No Neurological: Yes: Alert Psychiatric: Yes: Alert Imaging - Results Chest X-ray: Report Reviewed EKG: Report Reviewed Assessment/Plan Monitor on tele +ve troponins Ct better Extensive h/o ppm check meds reviewed continue present care will follow Problem List - Problems (1) Chest pain Code(s): R07.9 - CHEST PAIN, UNSPECIFIED Qualifiers: Chest pain type: unspecified Qualified Code(s): R07.9 - Chest pain, unspecified (2) Anemia Code(s): D64.9 - ANEMIA, UNSPECIFIED Qualifiers: Anemia type: other cause (3) CAD (coronary artery disease) of artery bypass graft Code(s): I25.810 - ATHEROSCLEROSIS OF CABG W/O ANGINA PECTORIS Qualifiers: [place] vs. transplanted heart: [place] heart Associated angina: without angina Qualified Code(s): I25.810 - Atherosclerosis of coronary artery bypass graft(s) without angina pectoris (4) CHF (congestive heart failure) Code(s): I50.9 - HEART FAILURE, UNSPECIFIED Qualifiers: Qualified Code(s): I50.9 - Heart failure, unspecified
[2017-12-29] MEDS: ATORVASTATIN CA 20 MG TABLET (FP) PO SCH (21:13)
[2017-12-30] MEDS: FUROSEMIDE 40 MG TABLET (FP) PO SCH ×2 (05:45→13:12)
[2017-12-30] MEDS: PANTOPRAZOLE 40 MG TABLET (FP) PO SCH (09:49)
[2017-12-30] MEDS: ASPIRIN COATED 81 MG TABLET.EC PO SCH (09:49)
[2017-12-30] MEDS: DIGOXIN 0.125 MG TABLET (FP) PO SCH (09:49)
[2017-12-30] MEDS: MAGNESIUM OXIDE 400 MG TABLET (FP) PO SCH (09:51)
--- NOTE | 2017-12-30 09:52 | PN ---
Progress Note, Physician Chief Complaint: cp History of Present Illness: no more cp. no sob. no leg swelling. no syncope - Current Medication List Current Medications: Active Medications Acetaminophen (Tylenol -) 650 mg PO Q4H PRN PRN Reason: PAIN LEVEL 1-5 Aspirin (Ecotrin -) 81 mg PO DAILY [facility] Last Admin: 12/29/17 10:09 Dose: 81 mg Atorvastatin Calcium (Lipitor -) 20 mg PO HS [facility] Last Admin: 12/29/17 21:13 Dose: 20 mg Digoxin (Lanoxin -) 0.125 mg PO DAILY [facility] Last Admin: 12/29/17 10:09 Dose: 0.125 mg Furosemide (Lasix -) 80 mg PO BID@0600,1400 [facility] Last Admin: 12/30/17 05:45 Dose: 80 mg Magnesium Oxide (Mag-Ox -) 400 mg PO DAILY [facility] Last Admin: 12/29/17 10:09 Dose: 400 mg Metoprolol Succinate (Toprol Xl -) 50 mg PO BID [facility] Last Admin: 12/29/17 21:13 Dose: 50 mg Pantoprazole Sodium (Protonix -) 40 mg PO DAILY [facility] Last Admin: 12/29/17 10:09 Dose: 40 mg - Objective Vital Signs: Vital Signs Temperature 98.1 F 12/30/17 06:00 Pulse Rate 65 12/30/17 06:00 Respiratory Rate 16 12/30/17 06:00 Blood Pressure 97/51 12/30/17 06:00 O2 Sat by Pulse Oximetry (%) 96 12/30/17 05:00 Constitutional: Yes: No Distress, Calm Eyes: No: Sclera Icterus HENT: No: Nasal Congestion Cardiovascular: Yes: Regular Rate and Rhythm, Murmur ( murmur unchanged), S1, S2, Other (PMI non diplaced). No: Gallop Respiratory: Yes: CTA Bilaterally. No: Accessory Muscle Use, Rales, Wheezes Gastrointestinal: Yes: Normal Bowel Sounds, Soft. No: Tenderness Musculoskeletal: Yes: Other (No kyphosis) Extremities: No: Cold Edema: No Integumentary: No: Jaundice Neurological: Yes: Alert, Oriented (x3) Psychiatric: No: Agitated Labs: CBC, BMP 12/28/17 11:30 12/29/17 06:15 INR, PTT INR 1.03 (0.82-1.09) 12/28/17 11:30 Assessment/Plan ecg: sr with av delay, pac's vs underlying afib with occasional aberrant conduction. no ischemic changes vs prior 04/05 cxr: clear lungs/pleura echo 01/2017: sev red lvef, global hk, nl lv size, nl rv size, sev lae, mild-mod as, mild ar, nl bio mvr, mod tr, rvsp 40-50, mod ao dilatation dobutamine echo ([place]): [id number] cath 02/03: patent rizo to lad, patent svg to om1, ISR mrca-->ptca; old isr plad , plcx (SENIOR TECHNICAL PROGRAM MANAGER), om1 (SENIOR TECHNICAL PROGRAM MANAGER) tele: NSR with PVCs. Vs>Filter Worker. NSVT x5b run a/p: 77 yo f hx Ischemic cardiomyopathy s/p ICD (single chamber, [employer], placed 07/2013), CAD s/p cabg and prior multiple PCI (cabg 10/2012 at [facility], rizo to lad and svg to om) , MVR (bio) 10/2012, p-afib/flutter (s/p MAZE and DARIO ligation 10/2012), mod-sev , dm, htn, hld, anemia requiring transfusions and recent suspicion for possible GI neoplasm who p/w cp. CP - L pectoral CP occurred during the night--pt states DID NOT wake her from sleep , she was awake already. - lasted approx 1-2 min, no radiation or "tearing" sensation, no assctd CV sx's (denies sob, diaph, LH), can't recall if was positional or pleuritic. noted pain in L scapular region shortly after CP resolved. - sx's not highly suspicious for CV etiology given short duration but not impossible--? m-skel etiology. - no clinical concern for ACS (trop.s 0.05-->0.1 x3. trend not c/w ACS. no ischemic ecg changes). - ? secondary to severe --no tx available for this, per prior dr omer w/u and plan - ICD interrogated remotely (via [facility] recorder at station)--no VT episodes occurring at that time (several nonsustained VT episodes over past few months), no shocks administered advanced systolic chf: -not on acei 2/2 to hyperkalemia and low bp in past -BNP 6K (prior range 2K-18K). CXR clear. -clinically hypervolemic with JVD. -bun/creat up from prior, bp trend slightly lower (baseline BP range previously 90s-110s, here running 90s-100s with rare dips to 80s)--these findings likely due to progressing (end stage?) low-output systolic CHF/severe . -would continue BB and lasix at current doses and tolerate BPs >90s (with rare dips to 80s ok in absence of sx's) : - dobutamine studies at [facility] showed mod-sev as. She was seen by tavr team but determined she was not a candidate for tavr since her prior mvr was encroaching into lvot and was too close to av. presumably was felt prohibitive risk for reop SAVR (vs ? pt declined)--per prior plan as per dr omer cad s/p CABG, mult PCIs: -cath 2017 with patent RIZO to LAD and SVG to OM1. severe ISR in RCA-->PTCA'd. no residual ischemic substrate -cont lipitor, bb, asa. p-afib/flutter: -s/p MAZE and DARIO ligation. due to intolerance to coumadin (sec to anemia requiring frequent transfusions and no identifiable treatable source), AC has been previously stopped and she has been managed with ASA alone, per dr omer. continue same -cont bb, dig. -dig level 1.5 here, retrospective data suggesting in CHF pts lowest mortality with <0.9 dig level--consider change to QOD dosing (defer to dr omer outpt f/ u). s/p bio MVR: -no signs of valvular decompensation BRINDA: -creat 1.8 here, baseline 1.3 -down to 1.5 today -suspect related to hypoperfusion from low cardiac output -cont present lasix, observe creat trend anemia with h/o transfusions - possible new GI neoplasm per office notes - hgb at baseline here (8s-9s) BP stable at baseline labs sent off late today--if renal fxn stable, pt ok for d/c from cv p.o.v. should f/u with dr omer within 2 wks
[2017-12-30 10:38] VITALS: TEMP 97.7
[2017-12-30 12:01] LABS: ANION GAP 10 (8-16); BLOOD UREA NITROGEN 43 mg/dL (7-18); CALCIUM 9.1 mg/dL (8.5-10.1); CHLORIDE 100 mmol/L (98-107); CO2 29 mmol/L (21-32); CREATININE 1.6 mg/dL (0.55-1.02); GLUCOSE,RANDOM 109 mg/dL (74-106); POTASSIUM 4.6 mmol/L (3.5-5.1); SODIUM 139 mmol/L (136-145)
--- NOTE | 2017-12-30 12:35 | DS ---
Physical Examination Vital Signs: Vital Signs Temperature 97.7 F 12/30/17 10:00 Pulse Rate 70 12/30/17 10:00 Respiratory Rate 18 12/30/17 10:00 Blood Pressure 102/45 12/30/17 10:00 O2 Sat by Pulse Oximetry (%) 96 12/30/17 05:00 Findings/Remarks: feels well no complains Constitutional: Yes: No Distress, Calm Neck: Yes: Supple Cardiovascular: Yes: Regular Rate and Rhythm Respiratory: Yes: CTA Bilaterally Gastrointestinal: Yes: Soft Edema: No Neurological: Yes: Alert Labs: CBC, BMP 12/28/17 11:30 12/30/17 10:29 Discharge Summary Reason For Visit: CHEST PAIN Current Active Problems Chest pain (Acute) Hospital Course: pt admitted to chest pain. Pt has extensive cardiac history monitored on tele cardiology followed mild elevation of troponins No acute ekg changes No cardiac work need at present - cleared by cardiology pt stable for d/c pt to follow with her pmd and cardiology meds reconcilled pt in agreement Discussed with Dr. Stone today Also discussed with nursing staff Condition: Stable - Instructions Referrals: Aldo Gipson MD [Primary Care Provider] - Disposition: HOME - Home Medications Comprehensive Discharge Medication List: Ambulatory Orders Magnesium Oxide 400 mg PO DAILY 05/01/14 Aspirin Coated [Ecotrin -] 81 mg PO DAILY #30 tablet.ec 12/21/15 Digoxin [Lanoxin -] 0.125 mg PO DAILY tablet 12/21/15 Pantoprazole Sodium [Protonix] 40 mg PO DAILY 02/26/16 Metoprolol Succinate [Toprol XL -] 50 mg PO BID #60 tab.sr.24h 03/01/16 Atorvastatin Ca [Lipitor] 20 mg PO HS 04/05/17 Furosemide [Lasix -] 80 mg PO BID@0600,1400 #60 tablet 04/14/17 Potassium Chloride [K-Dur -] 40 meq PO DAILY #30 tab 04/14/17 Acetaminophen [Tylenol .Regular Strength -] 650 mg PO Q4H PRN tablet 12/30/17
[2017-12-30 13:13] VITALS: BP 101/40; PULSE 68
== END 2017-12-30 15:38 | disposition home or self-care (01) ==
LOC: JER 10:58 → JERBED 14:00 → J4W 16:32
PROVIDERS: ADMIT Internal Medicine; ATTEND Internal Medicine
DX: R07.9 Chest pain, unspecified (principal); D64.9 Anemia, unspecified; I25.10 Atherosclerotic heart disease of native coronary artery without angina pectoris; I50.20 Unspecified systolic (congestive) heart failure; I10 Essential (primary) hypertension; I48.0 Paroxysmal atrial fibrillation; I48.92 Unspecified atrial flutter; E11.9 Type 2 diabetes mellitus without complications; E78.5 Hyperlipidemia, unspecified; J45.909 Unspecified asthma, uncomplicated; C55 Malignant neoplasm of uterus, part unspecified; Z95.1 Presence of aortocoronary bypass graft; Z79.82 Long term (current) use of aspirin; Z92.21 Personal history of antineoplastic chemotherapy; Z92.3 Personal history of irradiation; I25.5 Ischemic cardiomyopathy; Z87.891 Personal history of nicotine dependence; N17.9 Acute kidney failure, unspecified; Z95.2 Presence of prosthetic heart valve
CPT/HCPCS: 36415; 71045-TC-FY; 80048; 80053; 80061; 80162; 82550; 83721; 83735; 83880; 84443; 84484; 85025; 85610; 85730; 93005; 93010; 99284-25; G0378

== ENCOUNTER 2018-03-20 10:32 | Inpatient (IN) | payer OTHER ==
--- NOTE | 2018-03-20 11:18 | PDOC ---
History of Present Illness - General Chief Complaint: Shortness of Breath Stated Complaint: SHORTNESS OF BREATH Time Seen by Provider: 03/20/18 11:15 Past History - Past Medical History Allergies/Adverse Reactions: Allergies Allergy/AdvReac Type Severity Reaction Status Date / Time No Known Allergies Allergy Verified 03/20/18 11:01 Home Medications: Ambulatory Orders Magnesium Oxide 400 mg PO DAILY 05/01/14 Aspirin Coated [Ecotrin -] 81 mg PO DAILY #30 tablet.ec 12/21/15 Digoxin [Lanoxin -] 0.125 mg PO DAILY tablet 12/21/15 Pantoprazole Sodium [Protonix] 40 mg PO DAILY 02/26/16 Metoprolol Succinate [Toprol XL -] 50 mg PO BID #60 tab.sr.24h 03/01/16 Atorvastatin Ca [Lipitor] 20 mg PO HS 04/05/17 Furosemide [Lasix -] 80 mg PO BID@0600,1400 #60 tablet 04/14/17 Potassium Chloride [K-Dur -] 40 meq PO DAILY #30 tab 04/14/17 Acetaminophen [Tylenol .Regular Strength -] 650 mg PO Q4H PRN tablet 12/30/17 Anemia: Yes Asthma: Yes Cancer: Yes (uterus) Cardiac Disorders: Yes (A FIB,CABG, PPM, ICD, MVR) CVA: No COPD: No CHF: No Dementia: No Diabetes: Yes GI Disorders: No Disorders: No HTN: Yes Hypercholesterolemia: Yes Liver Disease: No Seizures: No Thyroid Disease: No - Surgical History Abdominal Surgery: No Appendectomy: No Cardiac Surgery: Yes (bypass PACEMAKER) Cholecystectomy: No Lung Surgery: No Orthopedic Surgery: No - Immunization History Immunization Up to Date: No - Suicide/Smoking/Psychosocial Hx Smoking Status: No Smoking History: Former smoker Have you smoked in the past 12 months: No Number of Cigarettes Smoked Daily: 12 If you are a former smoker, when did you quit?: 1995 Information on smoking cessation initiated: No Hx Alcohol Use: No Drug/Substance Use Hx: No Substance Use Type: None Hx Substance Use Treatment: No *Physical Exam - Vital Signs Last Vital Signs Temp Pulse Resp BP Pulse Ox 98.3 F 81 18 87/50 99 03/20/18 11:01 03/20/18 11:01 03/20/18 11:01 03/20/18 11:01 03/20/18 11:01 ED Treatment Course - RADIOLOGY Radiology Studies Ordered: Category Date Time Status CHEST X-RAY PORTABLE* [RAD] Stat Radiology 03/20/18 11:15 Ordered Medical Decision Making - Medical Decision Making 03/20/18 11:18 a/p: 77 yo f hx Ischemic cardiomyopathy s/p ICD (single chamber, [employer], placed 07/2013), CAD s/p cabg and prior multiple PCI (cabg 10/2012 at [facility], russell to lad and svg to om) , MVR (bio) 10/2012, p-afib/flutter (s/p MAZE and DARIO ligation 10/2012), mod-sev , dm, htn, hld, anemia requiring transfusions and recent suspicion for possible GI neoplasm who p/w cp. CP - patient with advanced and not a candidate for intervention. Possible progression of disease. - con't abram. currently sx free. - pain throughout left lateral chest, r/o shock. will arrange for interrogation in the morning. con't bb. systolic chf: -not on acei 2/2 to hyperkalemia and low bp in past - recent abd ct on 12/25 --> no evidence of pulmonary edema/eff at lung bases. -appears euvolemic con't home lasix, hold standing kcl while with art and normal k. - daily weights, i/o's. : - dobutamine studies at [facility] showed mod-sev as. She was seen by tavr team but determined she was not a candidate for tavr since her prior mvr was encroaching into lvot and was too close to av. -given her comorbidities she is very high risk for repeat open hear surgery so will have to manage with diuretics as doing - currently sbp's running low. monitor closely, preference is to avoid hypotension with advanced cad s/p CABG, mult PCIs: last ptca 12/2016. -ischemic eval as above. -cont lipitor, bb, asa. -after recent ptca in 01/2017 no further cp, plavix stopped after 1 month post PTCA, cont asa 81 p-afib/flutter: -S/p MAZE and DARIO ligation. -Could not tolerate coumadin due to anemia requiring frequent transfusions and no clear source. Has DARIO ligation so embolic risk likely low regardless. Cont asa for now. -cont bb, dig. level ok. htn: - runs low with sbp's typically 90's-100's. monitor on bb. s/p bio MVR: -no signs of valvular decompensation anemia with h/o transfusions - possible new GI neoplasm per office notes - hgb at baseline here. ART - monitor creatinine trend mulltiple high risk comorbidities, consider goals of care discussions.
--- NOTE | 2018-03-20 11:26 | PDOC ---
History of Present Illness - General History Source: Patient Exam Limitations: No Limitations <Gris Warren - Last Filed: 03/20/18 14:45> - General History Source: Patient Exam Limitations: No Limitations - History of Present Illness Initial Comments: 03/20/18 11:42 The patient is a 77 year old female, with a significant past medical history of ICM, CHF (EF 31%), s/p ICD (single chamber, [employer], placed 07/2013), CAD s/p CABG and PCI , MVR (bio) 10/2012, p-afib/flutter (s/p MAZE and DARIO ligation 10/2012), p-svt, DM, HTN, HLD, uterine cancer, and anemia requiring transfusions, who presents to the emergency department accompanied by home health nurse complaining of 1 day of shortness of breath. The patient reports that her shortness of breath is aggravated with exertion and lying supine. As per attendant, the patient has bilateral leg swelling, worse in the left, and her left foot appears to have dark discoloration. The patient endorses pain in her left leg. Denies history of blood clots. Denies chest pain, cough. Denies fevers. Denies recent travel or hospitalizations. Allergies: NKA Past surgical history: cardiac bypass, pacemaker, CABG, PCI, MVR, MAZE, DARIO ligation Social history: No current cigarette, alcohol, or drug use. Quit tobacco 1995. PCP: Dr. Gipson (also sees Dr. Patel and Dr. Gonzales) Card: Dr. Ho <Natty Osullivan - Last Filed: 03/20/18 16:26> - General Chief Complaint: Shortness of Breath Stated Complaint: SHORTNESS OF BREATH Time Seen by Provider: 03/20/18 11:15 Past History - Past Medical History Anemia: Yes Asthma: Yes Cancer: Yes (uterus) Cardiac Disorders: Yes (A FIB,CABG, PPM, ICD, MVR) CVA: No COPD: No CHF: No Dementia: No Diabetes: Yes GI Disorders: No Disorders: No HTN: Yes Hypercholesterolemia: Yes Liver Disease: No Seizures: No Thyroid Disease: No - Surgical History Abdominal Surgery: No Appendectomy: No Cardiac Surgery: Yes (bypass PACEMAKER) Cholecystectomy: No Lung Surgery: No Orthopedic Surgery: No - Immunization History Immunization Up to Date: No - Suicide/Smoking/Psychosocial Hx Smoking Status: No Smoking History: Former smoker Have you smoked in the past 12 months: No Number of Cigarettes Smoked Daily: 12 If you are a former smoker, when did you quit?: 1995 Information on smoking cessation initiated: No Hx Alcohol Use: No Drug/Substance Use Hx: No Substance Use Type: None Hx Substance Use Treatment: No <BiranaGris - Last Filed: 03/20/18 14:45> <Natty Osullivan - Last Filed: 03/20/18 16:26> - Past Medical History Allergies/Adverse Reactions: Allergies Allergy/AdvReac Type Severity Reaction Status Date / Time No Known Allergies Allergy Verified 03/20/18 11:01 Home Medications: Ambulatory Orders Magnesium Oxide 400 mg PO DAILY 05/01/14 Aspirin Coated [Ecotrin -] 81 mg PO DAILY #30 tablet.ec 12/21/15 Digoxin [Lanoxin -] 0.125 mg PO DAILY tablet 12/21/15 Pantoprazole Sodium [Protonix] 40 mg PO DAILY 02/26/16 Metoprolol Succinate [Toprol XL -] 50 mg PO BID #60 tab.sr.24h 03/01/16 Atorvastatin Ca [Lipitor] 20 mg PO HS 04/05/17 Furosemide [Lasix -] 80 mg PO BID@0600,1400 #60 tablet 04/14/17 Potassium Chloride [K-Dur -] 40 meq PO DAILY #30 tab 04/14/17 Acetaminophen [Tylenol .Regular Strength -] 650 mg PO Q4H PRN tablet 12/30/17 Review of Systems - Review of Systems Able to Perform ROS?: Yes Comments:: 03/20/18 11:43 GENERAL/CONSTITUTIONAL: No fever or chills. No weakness. CARDIOVASCULAR: (+)Shortness of breath. No chest pain. RESPIRATORY: No cough, wheezing, or hemoptysis. GASTROINTESTINAL: No nausea, vomiting, diarrhea or constipation. GENITOURINARY: No dysuria, frequency, or change in urination. MUSCULOSKELETAL: (+)BLE swelling, left > right. (+)LLE pain. No joint or muscle swelling or pain. No neck or back pain. SKIN: (+)Dark bluish discoloration of left foot. No rash NEUROLOGIC: No headache, vertigo, loss of consciousness, or change in strength/ sensation. ENDOCRINE: No increased thirst. No abnormal weight change. HEMATOLOGIC/LYMPHATIC: No anemia, easy bleeding, or history of blood clots. ALLERGIC/IMMUNOLOGIC: No hives or skin allergy. <Natty Osullivan - Last Filed: 03/20/18 16:26> *Physical Exam - Vital Signs Last Vital Signs Temp Pulse Resp BP Pulse Ox 98.3 F 81 18 87/50 99 03/20/18 11:01 03/20/18 11:03/20/18 11:03/20/18 11:03/20/18 11:01 <Gris Warren - Last Filed: 03/20/18 14:45> - Vital Signs Last Vital Signs Temp Pulse Resp BP Pulse Ox 98.3 F 81 18 87/50 99 03/20/18 11:01 03/20/18 11:01 03/20/18 11:03/20/18 11:03/20/18 11:01 - Physical Exam Comments: 03/20/18 11:44 GENERAL: Awake, alert, and fully oriented, in no acute distress HEAD: No signs of trauma EYES: PERRLA, EOMI, sclera anicteric, conjunctiva clear NECK: Normal ROM, supple, no lymphadenopathy, JVD, or masses LUNGS: Breath sounds equal, clear to auscultation bilaterally. No wheezes, and no crackles HEART: Regular rate and rhythm, normal S1 and S2, no murmurs, rubs or gallops ABDOMEN: Soft, nontender, normoactive bowel sounds. No guarding, no rebound. No masses EXTREMITIES: (+)Varicose veins BLE. (+)Non-pitting edema LE, L>R. Normal range of motion. No erythema or tenderness. DP/PT pulses 2+ and symmetric. Warm and well perfused. NEUROLOGICAL: Moves all extremities. Normal speech. SKIN: Warm, Dry, normal turgor, no rashes or lesions noted. <Natty Osullivan - Last Filed: 03/20/18 16:26> ED Treatment Course - LABORATORY CBC & Chemistry Diagram: 03/20/18 11:22 <Gris Warren - Last Filed: 03/20/18 14:45> - LABORATORY CBC & Chemistry Diagram: 03/20/18 11:22 03/20/18 11:22 - RADIOLOGY Radiograph Interpretation: 03/20/18 14:49 Vascular study was reviewed by Dr. Warren and over-read by Radiology. Impression: There is no evidence of deep venous thromboses in both lower extremities. Chest X-Ray was reviewed by Dr. Warren and over-read by Radiology. Impression: Cardiomegaly. No evidence of CHF pneumonia, pneumothorax. <Natty Osullivan - Last Filed: 03/20/18 16:26> Medical Decision Making - Medical Decision Making 03/20/18 11:25 77-year-old female history of hypertension CHF here today complaining of worsening shortness of breath for the last few days worse with lying flat and exertional dyspnea does no bilateral leg swelling left greater than right and over the last 24 hours noticed left leg discoloration and blueness. No history of PE or DVT no chest pain no fevers chills no cough On exam the patient is awake alert no acute respiratory distress lungs are clear bilaterally finger both bases normal effort cardiac exam is unremarkable bilateral legs are noted for varicose veins mild nonpitting edema to bilateral legs. Differential diagnosis includes CHF, anginal [place], infection such as pneumonia , DVT is also considered. The patient's left leg varicosities will order ultrasound to rule out DVT chest x-ray EKG labs troponin and reassess <Gris Warren - Last Filed: 03/20/18 14:45> - Medical Decision Making 03/20/18 16:[address] Gonzales at 2:40 pm. <Natty Osullivan - Last Filed: 03/20/18 16:26> *DC/Admit/Observation/Transfer - Discharge Dispostion Decision to Admit order: Yes <Gris Warren - Last Filed: 03/20/18 14:45> - Attestations Scribe Attestion: 03/20/18 11:46 Documentation prepared by Natty Osullivan, acting as bio medical technician for Gris Warren MD. <Natty Osullivan - Last Filed: 03/20/18 16:26> Diagnosis at time of Disposition: CHF (congestive heart failure), Dyspnea
[2018-03-20 11:49] LABS: LIPASE 267 U/L (73-393)
[2018-03-20 11:54] LABS: BASO % 1.6 % (0-2.0); EOS % 1.5 % (0-4.5); HEMATOCRIT 30.6 % (32.4-45.2); HEMOGLOBIN 9.8 GM/dL (10.7-15.3); LYMPH % 10.6 % (8-40); MEAN CELL VOLUME 81.2 fl (80-96); MEAN PLT VOLUME 8.8 fl (7.5-11.1); MONO % 17.1 % (3.8-10.2); NEUT % 69.2 % (42.8-82.8); PLATELET COUNT 225 K/MM3 (134-434); RBC 3.76 M/mm3 (3.60-5.2); RDW 20.2 % (11.6-15.6)
[2018-03-20 12:37] LABS: URINE APPEARANCE CLEAR; URINE BILIRUBIN NEGATIVE (<2.0 mg/dL); URINE COLOR LTYELLOW; URINE GLUCOSE (UA) NEGATIVE (NEGATIVE); URINE KETONE NEGATIVE (NEGATIVE); URINE LEUK ESTERASE NEGATIVE (NEGATIVE); URINE NITRITE NEGATIVE (NEGATIVE); URINE PROTEIN NEGATIVE (NEGATIVE); URINE UROBILINOGEN NEGATIVE mg/dL (0.2-1.0)
[2018-03-20 12:42] LABS: INR 1.35 (0.83-1.09); PROTHROMBIN TIME (PATIENT) 15.3 SEC (9.7-13.0)
[2018-03-20 12:45] LABS: ACTIVATED PTT 32.5 SECONDS (25.2-36.5)
--- NOTE | 2018-03-20 14:32 | EKG ---
Test Reason : Blood Pressure : / mmHG Vent. Rate : 082 BPM Atrial Rate : 082 BPM P-R Int : 208 ms QRS Dur : 138 ms QT Int : 420 ms P-R-T Axes : 086 -62 116 degrees QTc Int : 490 ms NORMAL SINUS RHYTHM LEFT AXIS DEVIATION NON-SPECIFIC INTRA-VENTRICULAR CONDUCTION BLOCK NONSPECIFIC T WAVE ABNORMALITY ABNORMAL ECG WHEN COMPARED WITH ECG OF 28-DEC-2017 11:07, ABERRANT CONDUCTION IS NO LONGER PRESENT [place] INTERVAL HAS INCREASED Confirmed by AUDI TILLEY MD ([id number]) on 03/20/2018 2:32:04 PM Referred By: Confirmed By:AUDI TILLEY MD
[2018-03-20 15:03] LABS: ALBUMIN 3.2 g/dl (3.4-5.0); ALK PHOS 342 U/L (45-117); ANION GAP 10 (8-16); BILIRUBIN,TOTAL 2.3 mg/dL (0.2-1.0); BLOOD UREA NITROGEN 68 mg/dL (7-18); CHLORIDE 100 mmol/L (98-107); CO2 23 mmol/L (21-32); GLUCOSE,RANDOM 111 mg/dL (74-106); SGPT/ALT 105 U/L (12-78); SODIUM 133 mmol/L (136-145); TOT PROT 7.2 g/dl (6.4-8.2)
[2018-03-20 15:04] LABS: POTASSIUM 5.9 mmol/L (3.5-5.1); SGOT/AST 159 U/L (15-37)
[2018-03-20] MEDS ORDERED: FUROSEMIDE 40 MG/4 ML INJECTABLE VIAL ONE (16:03)
--- NOTE | 2018-03-20 16:04 | CON.CARD ---
Cardiology Consult (text) - Consultation Consultation Note: cc: sob, le edema hpi: 77 yo f hx Ischemic cardiomyopathy s/p ICD (single chamber, [employer], placed 07/2013), CAD s/p cabg and prior multiple PCI (cabg 10/2012 at [facility], rizo to lad and svg to om) , MVR (bio) 10/2012, p-afib/flutter (s/p MAZE and DARIO ligation 10/2012), mod-sev , dm, htn, hld, anemia requiring transfusions here with sob, le edema. Has been eating a lot of salty foods lately including josiah soup and hot dogs. Over past few days she has noticed sob and le edema so came to er. No cp, palps, dizzy, loc,pnd ,orthopnea. Sees me for cardio. No f/c/s, n/v/d, cough, congestion, rash, visual disturbances, h/a, dysuira hematuria pmh: per hpi psh: cabd, mvr, icd social: former tobacco, no etoh or illicits fam: mother with unknown heart problems, daughter with unknown open heart surgery. ros: per hpi; meds: Home Medications Medication Instructions Recorded Magnesium Oxide 400 mg PO DAILY 05/01/14 Aspirin Coated [Ecotrin -] 81 mg PO DAILY #30 tablet.ec 12/21/15 Digoxin [Lanoxin -] 0.125 mg PO DAILY tablet 12/21/15 Pantoprazole Sodium [Protonix] 40 mg PO DAILY 02/26/16 Metoprolol Succinate [Toprol XL -] 50 mg PO BID #60 tab.sr.24h 03/01/16 Atorvastatin Ca [Lipitor] 20 mg PO HS 04/05/17 Furosemide [Lasix -] 80 mg PO BID@0600,1400 #60 tablet 04/14/17 Potassium Chloride [K-Dur -] 40 meq PO DAILY #30 tab 04/14/17 Acetaminophen [Tylenol .Regular 650 mg PO Q4H PRN tablet 12/30/17 Strength -] pe: Vital Signs Period Temp Pulse Resp BP Sys/Peterson Pulse Ox Last 24 Hr 98.3 F 78-81 16-18 86-87/50-61 97-99 nad, calm +JVD, neck supple rrr s1s2 2/6 murmur at sternal border. ctab, nl eff aaox3 trace le edema bl abd nt nd pos bs no jaundice diaphoresis pos dp pt, no carotid bruits aaox3 Laboratory Last Values WBC 7.0 K/mm3 (4.0-10.0) 03/20/18 11:22 RBC 3.76 M/mm3 (3.60-5.2) 03/20/18 11:22 Hgb 9.8 GM/dL (10.7-15.3) L 03/20/18 11:22 Hct 30.6 % (32.4-45.2) L 03/20/18 11:22 MCV 81.2 fl (80-96) 03/20/18 11:22 MCH 26.0 pg (25.7-33.7) 03/20/18 11:22 MCHC 32.0 g/dl (32.0-36.0) 03/20/18 11:22 RDW 20.2 % (11.6-15.6) H 03/20/18 11:22 Plt Count 225 K/MM3 (134-434) D 03/20/18 11:22 MPV 8.8 fl (7.5-11.1) D 03/20/18 11:22 Absolute Neuts (auto) 4.8 # 03/20/18 11:22 Neutrophils % 69.2 % (42.8-82.8) 03/20/18 11:22 Lymphocytes % 10.6 % (8-40) D 03/20/18 11:22 Monocytes % 17.1 % (3.8-10.2) H 03/20/18 11:22 Eosinophils % 1.5 % (0-4.5) 03/20/18 11:22 Basophils % 1.6 % (0-2.0) 03/20/18 11:22 Nucleated RBC % 0 % (0-0) 03/20/18 11:22 PT with INR 15.30 SEC (9.7-13.0) H* 03/20/18 12:10 INR 1.35 (0.83-1.09) D 03/20/18 12:10 PTT (Actin FS) 32.5 SECONDS (25.2-36.5) 03/20/18 12:10 Sodium 133 mmol/L (136-145) L 08/01/18 11:22 Potassium 5.9 mmol/L (3.5-5.1) H 03/20/18 11:22 Chloride 100 mmol/L (98-107) 03/20/18 11:22 Carbon Dioxide 23 mmol/L (21-32) 03/20/18 11:22 Anion Gap 10 (8-16) 03/20/18 11:22 BUN 68 mg/dL (7-18) H 03/20/18 11:22 Creatinine 2.0 mg/dL (0.55-1.02) H 03/20/18 11:22 Creat Clearance w eGFR 24.03 (>60) 03/20/18 11:22 Random Glucose 111 mg/dL (74-106) H 03/20/18 11:22 Calcium 9.0 mg/dL (8.5-10.1) 03/20/18 11:22 Total Bilirubin 2.3 mg/dL (0.2-1.0) H 03/20/18 11:22 AST 159 U/L (15-37) H 03/20/18 11:22 ALT 105 U/L (12-78) H 03/20/18 11:22 Alkaline Phosphatase 342 U/L (45-117) H 03/20/18 11:22 Creatine Kinase 100 IU/L (26-192) 03/20/18 11:22 Troponin I < 0.02 ng/ml (0.00-0.05) 03/20/18 11:22 B-Natriuretic Peptide 68263.49 pg/ml (5-450) H 03/20/18 11:22 Total Protein 7.2 g/dl (6.4-8.2) 03/20/18 11:22 Albumin 3.2 g/dl (3.4-5.0) L 03/20/18 11:22 Lipase 267 U/L (73-393) 03/20/18 11:22 Urine Color Ltyellow 03/20/18 12:30 Urine Appearance Clear 03/20/18 12:30 Urine pH 5.0 (5.0-8.0) 03/20/18 12:30 Ur Specific [place] 1.008 (1.001-1.035) 03/20/18 12:30 Urine Protein Negative (NEGATIVE) 03/20/18 12:30 Urine Glucose (UA) Negative (NEGATIVE) 03/20/18 12:30 Urine Ketones Negative (NEGATIVE) 03/20/18 12:30 Urine Blood Negative (NEGATIVE) 03/20/18 12:30 Urine Nitrite Negative (NEGATIVE) 03/20/18 12:30 Urine Bilirubin Negative (<2.0 mg/dL) 03/20/18 12:30 Urine Urobilinogen Negative mg/dL (0.2-1.0) 03/20/18 12:30 Ur Leukocyte Esterase Negative (NEGATIVE) 03/20/18 12:30 ecg: sr, nonspec ivcd, no sig change prior cxr: clear lungs/pleura echo 01/2017: sev red lvef, global hk, nl lv size, nl rv size, sev lae, mild-mod as, mild ar, nl bio mvr, mod tr, rvsp 40-50, mod ao dilatation dobutamine echo ([place]): [id number] cath 02/03: patent rizo to lad, patent svg to om1, ISR mrca-->ptca; old isr plad , plcx (SHOPPING INVESTIGATOR), om1 (SHOPPING INVESTIGATOR) a/p: 77 yo f hx Ischemic cardiomyopathy s/p ICD (single chamber, [employer] , placed 07/2013), CAD s/p cabg and prior multiple PCI (cabg 10/2012 at [facility], rizo to lad and svg to om) , MVR (bio) 10/2012, p-afib/flutter (s/p MAZE and DARIO ligation 10/2012), mod-sev , dm, htn, hld, anemia requiring transfusions here with sob, le edema. acute on chronic advanced systolic chf: -likely mild vol overload due to dietary indiscretion -lasix 40 iv bid, monitor daily wt, chem7 -not on acei 2/2 to hyperkalemia and low bp in past -cont bb : - dobutamine studies at [facility] showed mod-sev as. She was seen by tavr team but determined she was not a candidate for tavr since her prior mvr was encroaching into lvot and was too close to av. cad s/p CABG, mult PCIs: -cath 2016 with patent RIZO to LAD and SVG to OM1. severe ISR in RCA-->PTCA'd. no residual ischemic substrate -cont lipitor, bb, asa. p-afib/flutter: -s/p MAZE and DARIO ligation. due to intolerance to coumadin (sec to anemia requiring frequent transfusions and no identifiable treatable source), AC has been previously stopped and she has been managed with ASA alone. -cont bb, dig (level pending) s/p bio MVR: -no signs of valvular decompensation BRINDA on ckd: -suspect related to hypoperfusion from low cardiac output -cont present lasix, observe creat trend anemia with h/o transfusions - hgb at baseline here (8s-9s)
[2018-03-20] MEDS: FUROSEMIDE 40 MG/4 ML INJECTABLE VIAL IVPUSH SCH (16:12)
[2018-03-20] MEDS: ATORVASTATIN CA 40 MG TABLET (FP) PO SCH (22:13)
[2018-03-20] MEDS: HEPARIN NA (PORCINE) 5,000 UNITS/ML 1ML VIAL SQ SCH (22:16)
[2018-03-21 06:31] LABS: HEMOGLOBIN 9.7 GM/dL (10.7-15.3); MCHC 32.3 g/dl (32.0-36.0); MEAN CELL VOLUME 80.7 fl (80-96); MEAN PLT VOLUME 8.8 fl (7.5-11.1); PLATELET COUNT 196 K/MM3 (134-434); RBC 3.72 M/mm3 (3.60-5.2); RDW 20.6 % (11.6-15.6)
[2018-03-21] MEDS: FUROSEMIDE 40 MG/4 ML INJECTABLE VIAL IVPUSH SCH ×2 (06:39→14:55)
[2018-03-21 07:04] LABS: ALBUMIN 3.1 g/dl (3.4-5.0); ANION GAP 9 (8-16); BILIRUBIN,TOTAL 2.2 mg/dL (0.2-1.0); BLOOD UREA NITROGEN 73 mg/dL (7-18); CALCIUM 8.9 mg/dL (8.5-10.1); CHLORIDE 99 mmol/L (98-107); CO2 26 mmol/L (21-32); GLUCOSE,RANDOM 115 mg/dL (74-106); SGOT/AST 199 U/L (15-37); SGPT/ALT 150 U/L (12-78); SODIUM 134 mmol/L (136-145); TOT PROT 6.6 g/dl (6.4-8.2)
[2018-03-21 07:05] LABS: ALK PHOS 352 U/L (45-117)
[2018-03-21] MEDS: HEPARIN NA (PORCINE) 5,000 UNITS/ML 1ML VIAL SQ SCH ×2 (09:21→21:34)
[2018-03-21] MEDS: POTASSIUM CHLORIDE TABS 20 MEQ TABLET.ER (FP) PO SCH ×2 (09:21→09:29)
[2018-03-21] MEDS: DIGOXIN 0.125 MG TABLET (FP) PO SCH (09:21)
[2018-03-21] MEDS: MAGNESIUM OXIDE 400 MG TABLET (FP) PO SCH (09:21)
[2018-03-21] MEDS: ASPIRIN COATED 81 MG TABLET.EC PO SCH (09:22)
[2018-03-21] MEDS: PANTOPRAZOLE 40 MG TABLET (FP) PO SCH (09:22)
[2018-03-21] MEDS ORDERED: FUROSEMIDE 40 MG/4 ML INJECTABLE VIAL IVPUSH SCH (10:00)
--- NOTE | 2018-03-21 11:43 | HP ---
Admitting History and Physical - Primary Care Physician PCP: Reji Patel - Admission Chief Complaint: sob History of Present Illness: SOB a nd chest pain worsening SOB for last 1 week with leg edema History Source: Patient Limitations to Obtaining History: No Limitations - Past Medical History Cardiovascular: Yes: AFIB, CAD (s/p CABG-- 2012, stent in 01/2017), CHF (s/p AICD ), HTN Gastrointestinal: No: GI Bleed ...: No Heme/Onc: Yes: Anemia, Cancer (vaginal cancer) Endocrine: Yes: Diabetes Mellitus - Past Surgical History Past Surgical History: Yes: CABG, Permanent Pacemaker - Advance Directives Advance Directives: Yes: Health Care Proxy - Smoking History Smoking history: Former smoker Have you smoked in the past 12 months: No Aproximately how many cigarettes per day: 12 If you are a former smoker, when did you quit?: 1995 - Alcohol/Substance Use Hx Alcohol Use: No - Social History History of Recent Travel: No Home Medications - Allergies Allergies/Adverse Reactions: Allergies Allergy/AdvReac Type Severity Reaction Status Date / Time No Known Allergies Allergy Verified 03/20/18 11:01 - Home Medications Home Medications: Ambulatory Orders Magnesium Oxide 400 mg PO DAILY 05/01/14 Aspirin Coated [Ecotrin -] 81 mg PO DAILY #30 tablet.ec 12/21/15 Pantoprazole Sodium [Protonix] 40 mg PO DAILY 02/26/16 Atorvastatin Ca [Lipitor] 20 mg PO HS 04/05/17 Furosemide [Lasix -] 80 mg PO BID@0600,1400 #60 tablet 04/14/17 Potassium Chloride [K-Dur -] 40 meq PO DAILY #30 tab 04/14/17 Acetaminophen [Tylenol .Regular Strength -] 650 mg PO Q4H PRN tablet 12/30/17 Metoprolol Succinate [Toprol XL -] 25 mg PO BID tab.sr.24h 04/01/18 Review of Systems - Review of Systems Constitutional: denies: Chills, Fever Cardiovascular: reports: Chest Pain, Edema, Shortness of Breath. denies: Palpitations Physical Examination Vital Signs: Vital Signs Temperature 98.0 F 03/21/18 09:54 Pulse Rate 74 03/21/18 11:05 Respiratory Rate 18 03/21/18 09:54 Blood Pressure 86/42 03/21/18 11:05 O2 Sat by Pulse Oximetry (%) 98 08/02/18 09:54 Constitutional: Yes: No Distress, Calm Cardiovascular: Yes: Pulse Irregular, Murmur Respiratory: Yes: Diminished, Rales Gastrointestinal: Yes: Normal Bowel Sounds, Soft, Abdomen, Obese. No: Tenderness, Vomiting Edema: Yes Edema: LLE: 2+, RLE: 2+ Labs: CBC, BMP 03/21/18 05:30 03/21/18 05:30 Imaging - Results Chest X-ray: Image Reviewed EKG: Image Reviewed Problem List - Problems (1) CHF (congestive heart failure) Code(s): I50.9 - HEART FAILURE, UNSPECIFIED Qualifiers: (2) Dyspnea Code(s): R06.00 - DYSPNEA, UNSPECIFIED (3) Renal insufficiency Code(s): N28.9 - DISORDER OF KIDNEY AND URETER, UNSPECIFIED (4) Acute on chronic congestive heart failure Code(s): I50.9 - HEART FAILURE, UNSPECIFIED (5) Afib Code(s): I48.91 - UNSPECIFIED ATRIAL FIBRILLATION Qualifiers: Atrial fibrillation type: persistent Qualified Code(s): I48.1 - Persistent atrial fibrillation Assessment/Plan PLAN on Lasix iv check i and o check renal function Cardiology eval Tele monitor Continue with meds
--- NOTE | 2018-03-21 12:21 | PN ---
Progress Note (short form) - Note Progress Note: s: no cp palps dizzy, sob better o: Vital Signs Period Temp Pulse Resp BP Sys/Peterson Pulse Ox Last 24 Hr 97.7 F-98.4 F 74-80 16-20 86-105/42-67 94-98 nad, calm +JVD, neck supple rrr s1s2 2/6 murmur at sternal border. ctab, nl eff aaox3 trace le edema bl abd nt nd pos bs no jaundice diaphoresis aaox3 Current Medications Generic Name Dose Route Start Last Admin Trade Name Freq PRN Reason Stop Dose Admin Acetaminophen 650 mg 03/20/18 15:07 Tylenol - PO Q4H PRN PAIN LEVEL 1-5 Aspirin 81 mg 03/21/18 10:00 03/21/18 09:22 Ecotrin - PO 81 mg DAILY ZAY Administration Atorvastatin Calcium 20 mg 03/20/18 22:00 03/20/18 22:13 Lipitor - PO 20 mg HS ZAY Administration Digoxin 0.125 mg 03/21/18 10:00 03/21/18 09:21 Lanoxin - PO 0.125 mg DAILY ZAY Administration Furosemide 40 mg 03/20/18 16:00 03/21/18 06:39 Lasix Injection - IVPUSH 40 mg BID@0600,1400 ZAY Administration Heparin Sodium (Porcine) 5,000 unit 03/20/18 22:00 03/21/18 09:21 Heparin - SQ 5,000 unit BID ZAY Administration Magnesium Oxide 400 mg 03/21/18 10:00 03/21/18 09:21 Mag-Ox - PO 400 mg DAILY ZAY Administration Metoprolol Succinate 50 mg 03/20/18 22:00 03/21/18 09:22 Toprol Xl - PO Not Given BID ZAY Pantoprazole Sodium 40 mg 03/21/18 10:00 03/21/18 09:22 Protonix - PO 40 mg DAILY ZAY Administration Potassium Chloride 40 meq 03/21/18 10:00 03/21/18 09:29 K-Dur - PO Not Given DAILY ZAY CBC, BMP 03/21/18 05:30 03/21/18 05:30 ecg: sr, nonspec ivcd, no sig change prior cxr: clear lungs/pleura echo 01/2017: sev red lvef, global hk, nl lv size, nl rv size, sev lae, mild-mod as, mild ar, nl bio mvr, mod tr, rvsp 40-50, mod ao dilatation dobutamine echo ([place]): [id number] cath 02/03: patent rizo to lad, patent svg to om1, ISR mrca-->ptca; old isr plad , plcx (NETWORK DESIGNER), om1 (NETWORK DESIGNER) tele: sr a/p: 77 yo f hx Ischemic cardiomyopathy s/p ICD (single chamber, [employer] , placed 07/2013), CAD s/p cabg and prior multiple PCI (cabg 10/2012 at [facility], rizo to lad and svg to om) , MVR (bio) 10/2012, p-afib/flutter (s/p MAZE and DARIO ligation 10/2012), mod-sev , dm, htn, hld, anemia requiring transfusions here with sob, le edema. acute on chronic advanced systolic chf: -likely mild vol overload due to dietary indiscretion -lasix 40 iv bid, monitor daily wt, chem7 -not on acei 2/2 to hyperkalemia and low bp in past -cont bb -likely change to po lasix tomorrow : - dobutamine studies at [facility] showed mod-sev as. She was seen by tavr team but determined she was not a candidate for tavr since her prior mvr was encroaching into lvot and was too close to av. cad s/p CABG, mult PCIs: -cath 2016 with patent RIZO to LAD and SVG to OM1. severe ISR in RCA-->PTCA'd. no residual ischemic substrate -cont lipitor, bb, asa. p-afib/flutter: -s/p MAZE and DARIO ligation. due to intolerance to coumadin (sec to anemia requiring frequent transfusions and no identifiable treatable source), AC has been previously stopped and she has been managed with ASA alone. -cont bb, dig (level pending) s/p bio MVR: -no signs of valvular decompensation BRINDA on ckd: -suspect related to hypoperfusion from low cardiac output -cont present lasix, observe creat trend anemia with h/o transfusions - hgb at baseline here (8s-9s)
[2018-03-21] MEDS: ATORVASTATIN CA 40 MG TABLET (FP) PO SCH (21:34)
[2018-03-22] MEDS: FUROSEMIDE 40 MG/4 ML INJECTABLE VIAL IVPUSH SCH ×2 (07:28→14:28)
[2018-03-22] MEDS: DIGOXIN 0.125 MG TABLET (FP) PO SCH (09:11)
[2018-03-22] MEDS: PANTOPRAZOLE 40 MG TABLET (FP) PO SCH (09:11)
[2018-03-22] MEDS: POTASSIUM CHLORIDE TABS 20 MEQ TABLET.ER (FP) PO SCH ×2 (09:11→09:15)
[2018-03-22] MEDS: MAGNESIUM OXIDE 400 MG TABLET (FP) PO SCH (09:12)
[2018-03-22] MEDS: HEPARIN NA (PORCINE) 5,000 UNITS/ML 1ML VIAL SQ SCH ×2 (09:12→21:04)
[2018-03-22] MEDS: ASPIRIN COATED 81 MG TABLET.EC PO SCH (09:12)
--- NOTE | 2018-03-22 10:42 | PN ---
Progress Note (short form) - Note Progress Note: pt seen/ examined . chart reviewed. feels better still short of breath Denies chest pain Vital Signs Temp 98.1 F 03/22/18 10:00 Pulse 80 03/22/18 10:00 Resp 18 03/22/18 10:00 BP 85/41 03/22/18 10:00 Pulse Ox 97 03/22/18 09:00 Intake & Output 03/21/18 03/21/18 03/22/18 11:59 23:59 11:59 Intake Total 120 370 Balance 120 370 Weight 149 lb 4 oz 151 lb Intake: IV 10 LFA 10 Oral 120 360 Other: Voiding Method Toilet Toilet Toilet # Unmeasured Voids Void 2 2 2 Bowel Movement No No Weight Measurement Method Standing Scale Standing Scale Active Medications Acetaminophen (Tylenol -) 650 mg PO Q4H PRN PRN Reason: PAIN LEVEL 1-5 Aspirin (Ecotrin -) 81 mg PO DAILY [facility] Last Admin: 03/22/18 09:12 Dose: 81 mg Atorvastatin Calcium (Lipitor -) 20 mg PO HS [facility] Last Admin: 03/21/18 21:34 Dose: 20 mg Digoxin (Lanoxin -) 0.125 mg PO DAILY [facility] Last Admin: 03/22/18 09:11 Dose: 0.125 mg Furosemide (Lasix Injection -) 40 mg IVPUSH BID@0600,1400 [facility] Last Admin: 03/22/18 07:28 Dose: 40 mg Heparin Sodium (Porcine) (Heparin -) 5,000 unit SQ BID [facility] Last Admin: 03/22/18 09:12 Dose: 5,000 unit Magnesium Oxide (Mag-Ox -) 400 mg PO DAILY [facility] Last Admin: 03/22/18 09:12 Dose: 400 mg Metoprolol Succinate (Toprol Xl -) 50 mg PO BID [facility] Last Admin: 03/22/18 09:13 Dose: Not Given Pantoprazole Sodium (Protonix -) 40 mg PO DAILY [facility] Last Admin: 03/22/18 09:11 Dose: 40 mg Potassium Chloride (K-Dur -) 40 meq PO DAILY [facility] Last Admin: 03/22/18 09:15 Dose: Not Given CBC, BMP 03/21/18 05:30 03/21/18 05:30 physical exam conscious cooperative alert and awake Neck supple/ no JVD Lungs--diminished at bases otherwise clear CVS--heart sounds regular Abdomen--soft Extremities--- trace edema Neuro--- alert and awake Assessment and plan CHF exacerbation coronary artery disease Anemia Renal insufficiency Continue present care monitor on telemetry Daily weight Follow-up labs Overall condition guarded Further recommendations per clinical course Will follow Discussed with nursing staff also Problem List - Problems (1) Renal insufficiency Code(s): N28.9 - DISORDER OF KIDNEY AND URETER, UNSPECIFIED (2) CHF (congestive heart failure) Code(s): I50.9 - HEART FAILURE, UNSPECIFIED Qualifiers: (3) Dyspnea Code(s): R06.00 - DYSPNEA, UNSPECIFIED (4) Acute on chronic congestive heart failure Code(s): I50.9 - HEART FAILURE, UNSPECIFIED Qualifiers: Qualified Code(s): I50.23 - Acute on chronic systolic (congestive) heart failure (5) Afib Code(s): I48.91 - UNSPECIFIED ATRIAL FIBRILLATION Qualifiers: Atrial fibrillation type: persistent Qualified Code(s): I48.1 - Persistent atrial fibrillation (6) Anemia Code(s): D64.9 - ANEMIA, UNSPECIFIED Qualifiers: Anemia type: other cause (7) CAD (coronary artery disease) of artery bypass graft Code(s): I25.810 - ATHEROSCLEROSIS OF CABG W/O ANGINA PECTORIS Qualifiers: [place] vs. transplanted heart: [place] heart Associated angina: without angina Qualified Code(s): I25.810 - Atherosclerosis of coronary artery bypass graft(s) without angina pectoris
--- NOTE | 2018-03-22 12:18 | PN ---
Progress Note (short form) - Note Progress Note: s: no cp palps dizzy, sob better but persists, not yet at baseline o: Vital Signs Period Temp Pulse Resp BP Sys/Peterson Pulse Ox Last 24 Hr 97.6 F-98.2 F 64-80 18-20 85-107/41-50 97-97 nad, calm +JVD, neck supple rrr s1s2 2/6 murmur at sternal border. ctab, nl eff aaox3 trace le edema bl abd nt nd pos bs no jaundice diaphoresis aaox3 Current Medications Generic Name Dose Route Start Last Admin Trade Name Freq PRN Reason Stop Dose Admin Acetaminophen 650 mg 03/20/18 15:07 Tylenol - PO Q4H PRN PAIN LEVEL 1-5 Aspirin 81 mg 03/21/18 10:00 03/22/18 09:12 Ecotrin - PO 81 mg DAILY ZAY Administration Atorvastatin Calcium 20 mg 03/20/18 22:00 03/21/18 21:34 Lipitor - PO 20 mg HS ZAY Administration Digoxin 0.125 mg 03/21/18 10:00 03/22/18 09:11 Lanoxin - PO 0.125 mg DAILY ZAY Administration Furosemide 40 mg 03/20/18 16:00 03/22/18 07:28 Lasix Injection - IVPUSH 40 mg BID@0600,1400 ZAY Administration Heparin Sodium (Porcine) 5,000 unit 03/20/18 22:00 03/22/18 09:12 Heparin - SQ 5,000 unit BID ZAY Administration Magnesium Oxide 400 mg 03/21/18 10:00 03/22/18 09:12 Mag-Ox - PO 400 mg DAILY ZAY Administration Metoprolol Succinate 50 mg 03/20/18 22:00 03/22/18 09:13 Toprol Xl - PO Not Given BID ZAY Pantoprazole Sodium 40 mg 03/21/18 10:00 03/22/18 09:11 Protonix - PO 40 mg DAILY [facility]AY Administration Potassium Chloride 40 meq 03/21/18 10:00 03/22/18 09:15 K-Dur - PO Not Given DAILY ZAY CBC, BMP 03/21/18 05:30 03/21/18 05:30 ecg: sr, nonspec ivcd, no sig change prior cxr: clear lungs/pleura echo 01/2017: sev red lvef, global hk, nl lv size, nl rv size, sev lae, mild-mod as, mild ar, nl bio mvr, mod tr, rvsp 40-50, mod ao dilatation dobutamine echo ([facility]): [id number] cath 02/03: patent rizo to lad, patent svg to om1, ISR mrca-->ptca; old isr plad , plcx (BRAZER CONTROLLED ATMOSPHERIC FURNACE), om1 (BRAZER CONTROLLED ATMOSPHERIC FURNACE) tele: sr a/p: 77 yo f hx Ischemic cardiomyopathy s/p ICD (single chamber, [employer] , placed 07/2013), CAD s/p cabg and prior multiple PCI (cabg 10/2012 at [facility], rizo to lad and svg to om) , MVR (bio) 10/2012, p-afib/flutter (s/p MAZE and DARIO ligation 10/2012), mod-sev , dm, htn, hld, anemia requiring transfusions here with sob, le edema. acute on chronic advanced systolic chf: -likely mild vol overload due to dietary indiscretion -lasix 40 iv bid, monitor daily wt, chem7 -not on acei 2/2 to hyperkalemia and low bp in past -cont bb : - dobutamine studies at [facility] showed mod-sev as. She was seen by tavr team but determined she was not a candidate for tavr since her prior mvr was encroaching into lvot and was too close to av. cad s/p CABG, mult PCIs: -cath 2016 with patent RIZO to LAD and SVG to OM1. severe ISR in RCA-->PTCA'd. no residual ischemic substrate -cont lipitor, bb, asa. p-afib/flutter: -s/p MAZE and DARIO ligation. due to intolerance to coumadin (sec to anemia requiring frequent transfusions and no identifiable treatable source), AC has been previously stopped and she has been managed with ASA alone. -cont bb, dig (level pending) s/p bio MVR: -no signs of valvular decompensation BRINDA on ckd: -suspect related to hypoperfusion from low cardiac output -cont present lasix, observe creat trend anemia with h/o transfusions - hgb at baseline here (8s-9s)
[2018-03-22 13:56] LABS: ANION GAP 6 (8-16); BLOOD UREA NITROGEN 65 mg/dL (7-18); CALCIUM 8.6 mg/dL (8.5-10.1); CHLORIDE 100 mmol/L (98-107); CO2 30 mmol/L (21-32); CREATININE 1.8 mg/dL (0.55-1.02); GLUCOSE,RANDOM 101 mg/dL (74-106); POTASSIUM 4.3 mmol/L (3.5-5.1); SODIUM 136 mmol/L (136-145)
[2018-03-22] MEDS: ATORVASTATIN CA 40 MG TABLET (FP) PO SCH (21:04)
[2018-03-23] MEDS: FUROSEMIDE 40 MG/4 ML INJECTABLE VIAL IVPUSH SCH ×2 (06:28→13:03)
[2018-03-23 07:23] LABS: ANION GAP 7 (8-16); BLOOD UREA NITROGEN 60 mg/dL (7-18); CALCIUM 8.3 mg/dL (8.5-10.1); CHLORIDE 103 mmol/L (98-107); CO2 28 mmol/L (21-32); GLUCOSE,RANDOM 121 mg/dL (74-106); POTASSIUM 4.3 mmol/L (3.5-5.1); SODIUM 138 mmol/L (136-145)
[2018-03-23 07:26] LABS: CREATININE 1.7 mg/dL (0.55-1.02)
[2018-03-23] MEDS: DIGOXIN 0.125 MG TABLET (FP) PO SCH (10:36)
[2018-03-23] MEDS: POTASSIUM CHLORIDE TABS 20 MEQ TABLET.ER (FP) PO SCH (10:37)
[2018-03-23] MEDS: PANTOPRAZOLE 40 MG TABLET (FP) PO SCH (10:37)
[2018-03-23] MEDS: HEPARIN NA (PORCINE) 5,000 UNITS/ML 1ML VIAL SQ SCH ×2 (10:37→22:23)
[2018-03-23] MEDS: MAGNESIUM OXIDE 400 MG TABLET (FP) PO SCH (10:37)
[2018-03-23] MEDS: ASPIRIN COATED 81 MG TABLET.EC PO SCH (10:37)
--- NOTE | 2018-03-23 11:38 | PN ---
Progress Note, Physician History of Present Illness: No complaints today Couplets and triplets TAchy to 150s - Current Medication List Current Medications: Active Medications Acetaminophen (Tylenol -) 650 mg PO Q4H PRN PRN Reason: PAIN LEVEL 1-5 Aspirin (Ecotrin -) 81 mg PO DAILY [facility] Last Admin: 03/23/18 10:37 Dose: 81 mg Atorvastatin Calcium (Lipitor -) 20 mg PO HS [facility] Last Admin: 03/22/18 21:04 Dose: 20 mg Digoxin (Lanoxin -) 0.125 mg PO DAILY [facility] Last Admin: 03/23/18 10:36 Dose: 0.125 mg Furosemide (Lasix Injection -) 40 mg IVPUSH BID@0600,1400 [facility] Last Admin: 03/23/18 06:28 Dose: 40 mg Heparin Sodium (Porcine) (Heparin -) 5,000 unit SQ BID [facility] Last Admin: 03/23/18 10:37 Dose: 5,000 unit Magnesium Oxide (Mag-Ox -) 400 mg PO DAILY [facility] Last Admin: 03/23/18 10:37 Dose: 400 mg Metoprolol Succinate (Toprol Xl -) 50 mg PO BID [facility] Last Admin: 03/23/18 10:55 Dose: 50 mg Pantoprazole Sodium (Protonix -) 40 mg PO DAILY [facility] Last Admin: 03/23/18 10:37 Dose: 40 mg Potassium Chloride (K-Dur -) 40 meq PO DAILY [facility] Last Admin: 03/23/18 10:37 Dose: 40 meq - Objective Vital Signs: Vital Signs Temperature 97.8 F 03/23/18 02:00 Pulse Rate 86 03/23/18 10:36 Respiratory Rate 18 03/23/18 06:00 Blood Pressure 105/45 03/23/18 06:00 O2 Sat by Pulse Oximetry (%) 97 03/22/18 18:51 Constitutional: Yes: No Distress, Calm Eyes: Yes: WNL HENT: Yes: WNL Neck: Yes: WNL Cardiovascular: Yes: Regular Rate and Rhythm, Murmur Gastrointestinal: Yes: Normal Bowel Sounds Extremities: Yes: WNL Edema: No Labs: CBC, BMP 03/21/18 05:30 03/23/18 05:30 INR, PTT INR 1.35 (0.83-1.09) D 03/20/18 12:10 Assessment/Plan a/p: 77 yo f hx Ischemic cardiomyopathy s/p ICD (single chamber, [employer] [employer] , placed 07/2013), CAD s/p cabg and prior multiple PCI (cabg 10/2012 at [facility], rizo to lad and svg to om) , MVR (bio) 10/2012, p-afib/flutter (s/p MAZE and DARIO ligation 10/2012), mod-sev s/p BAV, dm, htn, hld, anemia requiring transfusions here with sob, le edema. acute on chronic advanced systolic chf: -likely mild vol overload due to dietary indiscretion -lasix 40 iv bid, Weight 151# -K 4.3 today, renal function improving Cr 1.7 -not on acei 2/2 to hyperkalemia and low bp in past -cont bb NSVT overnight -K 4.3 -Will send for Mg level -Continue BB : - dobutamine studies at [facility] showed mod-sev as. She was seen by tavr team but determined she was not a candidate for tavr since her prior mvr was encroaching into lvot and was too close to av. cad s/p CABG, mult PCIs: -cath 2017 with patent RIZO to LAD and SVG to OM1. severe ISR in RCA-->PTCA'd. no residual ischemic substrate -cont lipitor, bb, asa. p-afib/flutter: -s/p MAZE and DARIO ligation. due to intolerance to coumadin (sec to anemia requiring frequent transfusions and no identifiable treatable source), AC has been previously stopped and she has been managed with ASA alone. -cont bb, dig (level pending) s/p bio MVR: -no signs of valvular decompensation BRINDA on ckd: -suspect related to hypoperfusion from low cardiac output -cont present lasix, observe creat trend anemia with h/o transfusions - hgb at baseline here (8s-9s)
--- NOTE | 2018-03-23 11:49 | PN ---
Progress Note (short form) - Note Progress Note: patient seen and examined Still short of breath no distress denies chest pain Vital Signs Temp 97.8 F 03/23/18 02:00 Pulse 86 03/23/18 10:36 Resp 18 03/23/18 06:00 BP 105/45 03/23/18 06:00 Pulse Ox 97 03/22/18 18:51 Intake & Output 03/22/18 03/22/18 03/23/18 11:59 23:59 11:59 Intake Total 20 Balance 20 Weight 151 lb Intake: IV 20 LFA 20 Other: Voiding Method Toilet Toilet # Unmeasured Voids Void 2 2 2 Bowel Movement No Weight Measurement Method Standing Scale Active Medications Acetaminophen (Tylenol -) 650 mg PO Q4H PRN PRN Reason: PAIN LEVEL 1-5 Aspirin (Ecotrin -) 81 mg PO DAILY [facility] Last Admin: 03/23/18 10:37 Dose: 81 mg Atorvastatin Calcium (Lipitor -) 20 mg PO HS [facility] Last Admin: 03/22/18 21:04 Dose: 20 mg Digoxin (Lanoxin -) 0.125 mg PO DAILY [facility] Last Admin: 03/23/18 10:36 Dose: 0.125 mg Furosemide (Lasix Injection -) 40 mg IVPUSH BID@0600,1400 [facility] Last Admin: 03/23/18 06:28 Dose: 40 mg Heparin Sodium (Porcine) (Heparin -) 5,000 unit SQ BID [facility] Last Admin: 03/23/18 10:37 Dose: 5,000 unit Magnesium Oxide (Mag-Ox -) 400 mg PO DAILY [facility] Last Admin: 03/23/18 10:37 Dose: 400 mg Metoprolol Succinate (Toprol Xl -) 50 mg PO BID [facility] Last Admin: 03/23/18 10:55 Dose: 50 mg Pantoprazole Sodium (Protonix -) 40 mg PO DAILY [facility] Last Admin: 03/23/18 10:37 Dose: 40 mg Potassium Chloride (K-Dur -) 40 meq PO DAILY [facility] Last Admin: 03/23/18 10:37 Dose: 40 meq CBC, BMP 03/21/18 05:30 03/23/18 05:30 physical exam conscious cooperative alert and awake Neck supple/ no JVD Lungs--diminished at bases CVS--heart sounds regular Abdomen--soft Extremities--- trace edema Neuro--- alert and awake Assessment and plan CHF exacerbation coronary artery disease Anemia Renal insufficiency Continue present care monitor on telemetry Daily weight Follow-up labs continue IV Lasix Will follow Discussed with nursing staff also Problem List - Problems (1) Renal insufficiency Code(s): N28.9 - DISORDER OF KIDNEY AND URETER, UNSPECIFIED (2) CHF (congestive heart failure) Code(s): I50.9 - HEART FAILURE, UNSPECIFIED Qualifiers: (3) Dyspnea Code(s): R06.00 - DYSPNEA, UNSPECIFIED (4) Acute on chronic congestive heart failure Code(s): I50.9 - HEART FAILURE, UNSPECIFIED (5) Afib Code(s): I48.91 - UNSPECIFIED ATRIAL FIBRILLATION Qualifiers: Atrial fibrillation type: persistent Qualified Code(s): I48.1 - Persistent atrial fibrillation (6) Anemia Code(s): D64.9 - ANEMIA, UNSPECIFIED Qualifiers: Anemia type: other cause (7) CAD (coronary artery disease) of artery bypass graft Code(s): I25.810 - ATHEROSCLEROSIS OF CABG W/O ANGINA PECTORIS Qualifiers: [place] vs. transplanted heart: [place] heart Associated angina: without angina Qualified Code(s): I25.810 - Atherosclerosis of coronary artery bypass graft(s) without angina pectoris
[2018-03-23] MEDS: ATORVASTATIN CA 40 MG TABLET (FP) PO SCH (22:22)
[2018-03-24] MEDS: FUROSEMIDE 40 MG/4 ML INJECTABLE VIAL IVPUSH SCH ×2 (05:48→14:03)
[2018-03-24] MEDS: DIGOXIN 0.125 MG TABLET (FP) PO SCH (10:18)
[2018-03-24] MEDS: HEPARIN NA (PORCINE) 5,000 UNITS/ML 1ML VIAL SQ SCH ×2 (10:18→21:59)
[2018-03-24] MEDS: PANTOPRAZOLE 40 MG TABLET (FP) PO SCH (10:18)
[2018-03-24] MEDS: POTASSIUM CHLORIDE TABS 20 MEQ TABLET.ER (FP) PO SCH (10:18)
[2018-03-24] MEDS: ASPIRIN COATED 81 MG TABLET.EC PO SCH (10:18)
[2018-03-24] MEDS: MAGNESIUM OXIDE 400 MG TABLET (FP) PO SCH (10:19)
--- NOTE | 2018-03-24 10:45 | PN ---
Progress Note, Physician History of Present Illness: No CV events Some dyspena this AM put on O2 Tele: NSR 80s with PVCs and triplets - Current Medication List Current Medications: Active Medications Acetaminophen (Tylenol -) 650 mg PO Q4H PRN PRN Reason: PAIN LEVEL 1-5 Aspirin (Ecotrin -) 81 mg PO DAILY [facility] Last Admin: 03/24/18 10:18 Dose: 81 mg Atorvastatin Calcium (Lipitor -) 20 mg PO HS [facility] Last Admin: 03/23/18 22:22 Dose: 20 mg Digoxin (Lanoxin -) 0.125 mg PO DAILY [facility] Last Admin: 03/24/18 10:18 Dose: 0.125 mg Furosemide (Lasix Injection -) 40 mg IVPUSH BID@0600,1400 [facility] Last Admin: 03/24/18 05:48 Dose: 40 mg Heparin Sodium (Porcine) (Heparin -) 5,000 unit SQ BID [facility] Last Admin: 03/24/18 10:18 Dose: 5,000 unit Magnesium Oxide (Mag-Ox -) 400 mg PO DAILY [facility] Last Admin: 03/24/18 10:19 Dose: 400 mg Metoprolol Succinate (Toprol Xl -) 50 mg PO BID [facility] Last Admin: 03/24/18 10:18 Dose: 50 mg Pantoprazole Sodium (Protonix -) 40 mg PO DAILY [facility] Last Admin: 03/24/18 10:18 Dose: 40 mg Potassium Chloride (K-Dur -) 40 meq PO DAILY [facility] Last Admin: 03/24/18 10:18 Dose: 40 meq - Objective Vital Signs: Vital Signs Temperature 98.6 F 03/24/18 08:45 Pulse Rate 79 03/24/18 10:18 Respiratory Rate 18 03/24/18 08:45 Blood Pressure 102/46 03/24/18 08:45 O2 Sat by Pulse Oximetry (%) 95 03/23/18 21:00 Constitutional: Yes: No Distress, Calm Eyes: Yes: WNL HENT: Yes: WNL Neck: Yes: WNL Cardiovascular: Yes: Murmur Respiratory: Yes: CTA Bilaterally Gastrointestinal: Yes: Normal Bowel Sounds Musculoskeletal: Yes: WNL Extremities: Yes: WNL Edema: No Labs: CBC, BMP 03/21/18 05:30 03/23/18 05:30 INR, PTT INR 1.35 (0.83-1.09) D 03/20/18 12:10 Assessment/Plan a/p: 77 yo f hx Ischemic cardiomyopathy s/p ICD (single chamber, [employer] , placed 07/2013), CAD s/p cabg and prior multiple PCI (cabg 10/2012 at [facility], rizo to lad and svg to om) , MVR (bio) 10/2012, p-afib/flutter (s/p MAZE and DARIO ligation 10/2012), mod-sev s/p BAV, dm, htn, hld, anemia requiring transfusions here with sob, le edema. acute on chronic advanced systolic chf: -likely mild vol overload due to dietary indiscretion -lasix 40 iv bid, Weight 151# -K 4.3 today, renal function improving Cr 1.7 -not on acei 2/2 to hyperkalemia and low bp in past -cont bb 03/24: Continue Lasix 40mg IV BID, needs accurate weights and I/Os NSVT overnight -K 4.3 -Will send for Mg level -Continue BB : - dobutamine studies at [facility] showed mod-sev as. She was seen by tavr team but determined she was not a candidate for tavr since her prior mvr was encroaching into lvot and was too close to av. cad s/p CABG, mult PCIs: -cath 2016 with patent RIZO to LAD and SVG to OM1. severe ISR in RCA-->PTCA'd. no residual ischemic substrate -cont lipitor, bb, asa. p-afib/flutter: -s/p MAZE and DAIRO ligation. due to intolerance to coumadin (sec to anemia requiring frequent transfusions and no identifiable treatable source), AC has been previously stopped and she has been managed with ASA alone. -cont bb, dig level 1.1. Would hold Dig in light of renal insufficiency. s/p bio MVR: -no signs of valvular decompensation BRINDA on ckd: -suspect related to hypoperfusion from low cardiac output -cont present lasix, Creat stable anemia with h/o transfusions - hgb at baseline here (8s-9s)
--- NOTE | 2018-03-24 12:58 | PN ---
Progress Note (short form) - Note Progress Note: Overall condition same. Still dyspneic Denies chest pain Vital Signs Temp 98.6 F 03/24/18 08:45 Pulse 79 03/24/18 10:18 Resp 18 03/24/18 08:45 BP 102/46 03/24/18 08:45 Pulse Ox 97 03/24/18 09:00 Intake & Output 03/23/18 03/24/18 03/24/18 23:59 11:59 23:59 Intake Total 630 270 Balance 630 270 Intake: IV 10 30 RFA 10 30 Oral 620 240 Other: Voiding Method Toilet Toilet # Unmeasured Voids Void 2 2 Bowel Movement Yes # Bowel Movements 2 Active Medications Acetaminophen (Tylenol -) 650 mg PO Q4H PRN PRN Reason: PAIN LEVEL 1-5 Aspirin (Ecotrin -) 81 mg PO DAILY [facility] Last Admin: 03/24/18 10:18 Dose: 81 mg Atorvastatin Calcium (Lipitor -) 20 mg PO HS [facility] Last Admin: 03/23/18 22:22 Dose: 20 mg Furosemide (Lasix Injection -) 40 mg IVPUSH BID@0600,1400 [facility] Last Admin: 03/24/18 05:48 Dose: 40 mg Heparin Sodium (Porcine) (Heparin -) 5,000 unit SQ BID [facility] Last Admin: 03/24/18 10:18 Dose: 5,000 unit Magnesium Oxide (Mag-Ox -) 400 mg PO DAILY [facility] Last Admin: 03/24/18 10:19 Dose: 400 mg Metoprolol Succinate (Toprol Xl -) 50 mg PO BID [facility] Last Admin: 03/24/18 10:18 Dose: 50 mg Pantoprazole Sodium (Protonix -) 40 mg PO DAILY [facility] Last Admin: 03/24/18 10:18 Dose: 40 mg Potassium Chloride (K-Dur -) 40 meq PO DAILY [facility] Last Admin: 03/24/18 10:18 Dose: 40 meq CBC, BMP 03/21/18 05:30 03/23/18 05:30 physical exam conscious cooperative alert and awake Neck supple/ no JVD Lungs--diminished at bases CVS--heart sounds regular Abdomen--soft Extremities--- trace edema Neuro--- alert and awake Assessment and plan CHF exacerbation coronary artery disease Anemia Renal insufficiency Continue present care monitor on telemetry Daily weight Follow-up labs continue IV Lasix Cardiology following Will follow Problem List - Problems (1) Renal insufficiency Code(s): N28.9 - DISORDER OF KIDNEY AND URETER, UNSPECIFIED (2) CHF (congestive heart failure) Code(s): I50.9 - HEART FAILURE, UNSPECIFIED Qualifiers: (3) Dyspnea Code(s): R06.00 - DYSPNEA, UNSPECIFIED (4) Acute on chronic congestive heart failure Code(s): I50.9 - HEART FAILURE, UNSPECIFIED (5) Afib Code(s): I48.91 - UNSPECIFIED ATRIAL FIBRILLATION Qualifiers: Atrial fibrillation type: persistent Qualified Code(s): I48.1 - Persistent atrial fibrillation (6) Anemia Code(s): D64.9 - ANEMIA, UNSPECIFIED Qualifiers: Anemia type: other cause (7) CAD (coronary artery disease) of artery bypass graft Code(s): I25.810 - ATHEROSCLEROSIS OF CABG W/O ANGINA PECTORIS Qualifiers: [place] vs. transplanted heart: [place] heart Associated angina: without angina Qualified Code(s): I25.810 - Atherosclerosis of coronary artery bypass graft(s) without angina pectoris
[2018-03-24 21:23] LABS: BASO % 0.8 % (0-2.0); EOS % 1.4 % (0-4.5); HEMATOCRIT 29.5 % (32.4-45.2); HEMOGLOBIN 9.4 GM/dL (10.7-15.3); LYMPH % 7.4 % (8-40); MCH 25.8 pg (25.7-33.7); MEAN CELL VOLUME 80.8 fl (80-96); MEAN PLT VOLUME 8.5 fl (7.5-11.1); MONO % 18.2 % (3.8-10.2); NEUT % 72.2 % (42.8-82.8); PLATELET COUNT 210 K/MM3 (134-434); RBC 3.66 M/mm3 (3.60-5.2); WHITE BLOOD COUNT 5.1 K/mm3 (4.0-10.0)
[2018-03-24] MEDS: ATORVASTATIN CA 20 MG TABLET (FP) PO SCH (21:58)
[2018-03-25] MEDS: FUROSEMIDE 40 MG/4 ML INJECTABLE VIAL IVPUSH SCH ×2 (05:04→13:19)
[2018-03-25 06:42] LABS: BASO % 0.9 % (0-2.0); EOS % 1.9 % (0-4.5); HEMATOCRIT 29.6 % (32.4-45.2); HEMOGLOBIN 9.4 GM/dL (10.7-15.3); LYMPH % 9.4 % (8-40); MCH 25.5 pg (25.7-33.7); MCHC 31.8 g/dl (32.0-36.0); MEAN CELL VOLUME 80.1 fl (80-96); MONO % 15.3 % (3.8-10.2); NEUT % 72.5 % (42.8-82.8); RBC 3.69 M/mm3 (3.60-5.2); RDW 20.8 % (11.6-15.6); WHITE BLOOD COUNT 5.2 K/mm3 (4.0-10.0)
[2018-03-25 07:06] LABS: CALCIUM 8.9 mg/dL (8.5-10.1); CHLORIDE 102 mmol/L (98-107); POTASSIUM 5.4 mmol/L (3.5-5.1); SODIUM 136 mmol/L (136-145)
[2018-03-25 07:10] LABS: ALBUMIN 3.2 g/dl (3.4-5.0); ALK PHOS 295 U/L (45-117); ANION GAP 8 (8-16); BILIRUBIN,TOTAL 0.9 mg/dL (0.2-1.0); BLOOD UREA NITROGEN 63 mg/dL (7-18); CO2 26 mmol/L (21-32); CREATININE 1.9 mg/dL (0.55-1.02); GLUCOSE,RANDOM 116 mg/dL (74-106); SGOT/AST 56 U/L (15-37); SGPT/ALT 103 U/L (12-78)
--- NOTE | 2018-03-25 09:01 | PN ---
Progress Note, Physician Chief Complaint: sob History of Present Illness: walked in halls--denies sob. "i feel better" no LH, palpitations, cp ex-cigs - Current Medication List Current Medications: Active Medications Acetaminophen (Tylenol -) 650 mg PO Q4H PRN PRN Reason: PAIN LEVEL 1-5 Aspirin (Ecotrin -) 81 mg PO DAILY [facility] Last Admin: 03/24/18 10:18 Dose: 81 mg Atorvastatin Calcium (Lipitor -) 20 mg PO HS [facility] Last Admin: 03/24/18 21:58 Dose: 20 mg Furosemide (Lasix Injection -) 40 mg IVPUSH BID@0600,1400 [facility] Last Admin: 03/25/18 05:04 Dose: 40 mg Heparin Sodium (Porcine) (Heparin -) 5,000 unit SQ BID [facility] Last Admin: 03/24/18 21:59 Dose: 5,000 unit Magnesium Oxide (Mag-Ox -) 400 mg PO DAILY [facility] Last Admin: 03/24/18 10:19 Dose: 400 mg Metoprolol Succinate (Toprol Xl -) 50 mg PO BID [facility] Last Admin: 03/24/18 21:58 Dose: 50 mg Pantoprazole Sodium (Protonix -) 40 mg PO DAILY [facility] Last Admin: 03/24/18 10:18 Dose: 40 mg Potassium Chloride (K-Dur -) 40 meq PO DAILY [facility] Last Admin: 03/24/18 10:18 Dose: 40 meq - Objective Vital Signs: Vital Signs Temperature 97.7 F 03/25/18 05:10 Pulse Rate 72 03/25/18 05:10 Respiratory Rate 16 03/25/18 05:10 Blood Pressure 97/40 03/25/18 05:10 O2 Sat by Pulse Oximetry (%) 97 03/24/18 21:00 Constitutional: Yes: No Distress, Calm Eyes: No: Sclera Icterus HENT: No: Nasal Congestion Cardiovascular: Yes: Regular Rate and Rhythm, JVD (++), S1, S2, Other (PMI non diplaced). No: Gallop, Murmur Respiratory: Yes: CTA Bilaterally. No: Accessory Muscle Use, Rales, Wheezes Gastrointestinal: Yes: Normal Bowel Sounds, Soft. No: Tenderness Musculoskeletal: Yes: Other (No kyphosis) Extremities: No: Cold Edema: No Integumentary: No: Jaundice Neurological: Yes: Alert, Oriented (x3) Psychiatric: No: Agitated Labs: CBC, BMP 03/25/18 05:30 03/25/18 05:30 INR, PTT INR 1.35 (0.83-1.09) D 03/20/18 12:10 Assessment/Plan ecg: sr, nonspec ivcd, no sig change vs prior cxr: clear lungs/pleura echo 01/2017: sev red lvef, global hk, nl lv size, nl rv size, sev lae, mild-mod as, mild ar, nl bio mvr, mod tr, rvsp 40-50, mod ao dilatation dobutamine echo ([place]): [id number] cath 02/03: patent rizo to lad, patent svg to om1, ISR mrca-->ptca; old isr plad , plcx (PROGRESSIVE CARE UNIT REGISTERED NURSE), om1 (PROGRESSIVE CARE UNIT REGISTERED NURSE) tele: AF, HR controlled. VT x3b a/p: 77 yo f hx Ischemic cardiomyopathy s/p ICD (single chamber, [employer] , placed 07/2013), CAD s/p cabg and prior multiple PCI (cabg 10/2012 at [facility], rizo to lad and svg to om) , MVR (bio) 10/2012, p-afib/flutter (s/p MAZE and DARIO ligation 10/2012), mod-sev , dm, htn, hld, anemia requiring transfusions here with sob, le edema. acute on chronic advanced systolic chf: -likely mild vol overload due to dietary indiscretion -lasix 40 iv bid being given -? dry wt. she does not recall recent home wt trend. wt was 128 here in 01/04 ( volume-up then). 136 lbs at o.v. followup 01/22/18. currently 149-151. -given above wts and profound JVD on exam, suspect she remains very volume up. doubt low output at present. -d/w'd RN on 4W: their scale is broken and not yet been replaced. pt reports little UOP to 40 iv lasix doses--increase to 80 bid -not on evie/ARB 2/2 to hyperkalemia and low bp in past. low bp's presently preclude addition of hydralazine or nitrates -cont bb at present dose : - dobutamine studies at [facility] showed mod-sev as. She was seen by tavr team but determined she was not a candidate for tavr since her prior mvr was encroaching into lvot and was too close to av. - HF med mgmt as doing cad s/p CABG, mult PCIs: -cath 2017 with patent RIZO to LAD and SVG to OM1. severe ISR in RCA-->PTCA'd. no residual ischemic substrate -cont lipitor, bb, asa. p-afib/flutter: -s/p MAZE and DARIO ligation. due to intolerance to coumadin (sec to anemia requiring frequent transfusions and no identifiable treatable source), AC has been previously stopped and she has been managed with ASA alone. -cont bb -dig held here given age, decr GFR and level 1.1 s/p bio MVR: -no signs of valvular decompensation BRINDA on ckd: -baseline creat 1.5-1.8 during last admit. -suspect BRINDA from cardiorenal syndrome. -bun and creat improving with diuresis, observe trend anemia with h/o transfusions - hgb at baseline here (8s-9s)
[2018-03-25] MEDS: POTASSIUM CHLORIDE TABS 20 MEQ TABLET.ER (FP) PO SCH (09:03)
[2018-03-25] MEDS: ASPIRIN COATED 81 MG TABLET.EC PO SCH (09:03)
[2018-03-25] MEDS: HEPARIN NA (PORCINE) 5,000 UNITS/ML 1ML VIAL SQ SCH ×2 (09:03→21:54)
[2018-03-25] MEDS: MAGNESIUM OXIDE 400 MG TABLET (FP) PO SCH (09:04)
[2018-03-25] MEDS: PANTOPRAZOLE 40 MG TABLET (FP) PO SCH (09:04)
[2018-03-25 12:26] LABS: ANISOCYTOSIS 2+; MACROCYTOSIS 0
--- NOTE | 2018-03-25 12:36 | PN ---
Progress Note (short form) - Note Progress Note: patient seen and examined. Overall feels same no distress Mild shortness of breath denies chest pain Cardiology follow-up noted--- Lasix dose increased Vital Signs Temp 98 F 03/25/18 10:00 Pulse 76 03/25/18 10:00 Resp 18 03/25/18 10:00 BP 98/53 03/25/18 10:00 Pulse Ox 97 03/25/18 09:00 Intake & Output 03/24/18 03/25/18 03/25/18 23:59 11:59 23:59 Intake Total 130 60 Balance 130 60 Intake: IV 10 10 RFA 10 10 Oral 120 50 Other: Voiding Method Toilet Toilet # Unmeasured Voids Void 1 Active Medications Acetaminophen (Tylenol -) 650 mg PO Q4H PRN PRN Reason: PAIN LEVEL 1-5 Aspirin (Ecotrin -) 81 mg PO DAILY [facility] Last Admin: 03/25/18 09:03 Dose: 81 mg Atorvastatin Calcium (Lipitor -) 20 mg PO HS [facility] Last Admin: 03/24/18 21:58 Dose: 20 mg Furosemide (Lasix Injection -) 80 mg IVPUSH BID@0600,1400 [facility] Furosemide (Lasix Injection -) 80 mg IVPUSH ONCE ONE Stop: 03/25/18 19:01 Heparin Sodium (Porcine) (Heparin -) 5,000 unit SQ BID [facility] Last Admin: 03/25/18 09:03 Dose: 5,000 unit Magnesium Oxide (Mag-Ox -) 400 mg PO DAILY [facility] Last Admin: 03/25/18 09:04 Dose: 400 mg Metoprolol Succinate (Toprol Xl -) 50 mg PO BID [facility] Last Admin: 03/25/18 09:04 Dose: 50 mg Pantoprazole Sodium (Protonix -) 40 mg PO DAILY [facility] Last Admin: 03/25/18 09:04 Dose: 40 mg Potassium Chloride (K-Dur -) 40 meq PO DAILY [facility] Last Admin: 03/25/18 09:03 Dose: 40 meq CBC, BMP 03/25/18 05:30 03/25/18 05:30 physical exam conscious cooperative alert and awake Neck supple/ Lungs--diminished at bases CVS--heart sounds regular Abdomen--soft Extremities--- trace edema Neuro--- alert and awake Assessment and plan CHF exacerbation coronary artery disease Anemia Renal insufficiency Continue present care monitor on telemetry Daily weight Follow-up labs---especially given increased lasix. continue IV Lasix--- dose increased today Will follow Discussed with nursing staff also. Problem List - Problems (1) Renal insufficiency Code(s): N28.9 - DISORDER OF KIDNEY AND URETER, UNSPECIFIED (2) CHF (congestive heart failure) Code(s): I50.9 - HEART FAILURE, UNSPECIFIED Qualifiers: (3) Dyspnea Code(s): R06.00 - DYSPNEA, UNSPECIFIED (4) Acute on chronic congestive heart failure Code(s): I50.9 - HEART FAILURE, UNSPECIFIED (5) Afib Code(s): I48.91 - UNSPECIFIED ATRIAL FIBRILLATION Qualifiers: Atrial fibrillation type: persistent Qualified Code(s): I48.1 - Persistent atrial fibrillation (6) Anemia Code(s): D64.9 - ANEMIA, UNSPECIFIED Qualifiers: Anemia type: other cause (7) CAD (coronary artery disease) of artery bypass graft Code(s): I25.810 - ATHEROSCLEROSIS OF CABG W/O ANGINA PECTORIS Qualifiers: [place] vs. transplanted heart: [place] heart Associated angina: without angina Qualified Code(s): I25.810 - Atherosclerosis of coronary artery bypass graft(s) without angina pectoris
[2018-03-25] MEDS ORDERED: FUROSEMIDE 40 MG/4 ML INJECTABLE VIAL IVPUSH ONE (19:00)
[2018-03-25] MEDS: ATORVASTATIN CA 20 MG TABLET (FP) PO SCH (21:54)
[2018-03-26] MEDS: FUROSEMIDE 40 MG/4 ML INJECTABLE VIAL IVPUSH SCH ×2 (05:59→14:01)
[2018-03-26 06:31] LABS: ANION GAP 4 (8-16); BLOOD UREA NITROGEN 64 mg/dL (7-18); CALCIUM 8.8 mg/dL (8.5-10.1); CHLORIDE 104 mmol/L (98-107); CO2 27 mmol/L (21-32); CREATININE 1.7 mg/dL (0.55-1.02); GLUCOSE,RANDOM 119 mg/dL (74-106); POTASSIUM 4.7 mmol/L (3.5-5.1); SODIUM 135 mmol/L (136-145)
--- NOTE | 2018-03-26 10:20 | PN ---
Progress Note (short form) - Note Progress Note: cc: sob s: sob improving. no cp, dizziness, palps Current Medications Acetaminophen (Tylenol -) 650 mg PO Q4H PRN PRN Reason: PAIN LEVEL 1-5 Aspirin (Ecotrin -) 81 mg PO DAILY [facility] Last Admin: 03/25/18 09:03 Dose: 81 mg Atorvastatin Calcium (Lipitor -) 20 mg PO HS [facility] Last Admin: 03/25/18 21:54 Dose: 20 mg Furosemide (Lasix Injection -) 80 mg IVPUSH BID@0600,1400 [facility] Last Admin: 03/26/18 05:59 Dose: 80 mg Heparin Sodium (Porcine) (Heparin -) 5,000 unit SQ BID [facility] Last Admin: 03/25/18 21:54 Dose: 5,000 unit Magnesium Oxide (Mag-Ox -) 400 mg PO DAILY [facility] Last Admin: 03/25/18 09:04 Dose: 400 mg Metoprolol Succinate (Toprol Xl -) 50 mg PO BID [facility] Last Admin: 03/25/18 21:54 Dose: 50 mg Pantoprazole Sodium (Protonix -) 40 mg PO DAILY [facility] Last Admin: 03/25/18 09:04 Dose: 40 mg Potassium Chloride (K-Dur -) 40 meq PO DAILY [facility] Last Admin: 03/25/18 09:03 Dose: 40 meq - Objective Vital Signs: Vital Signs Period Temp Pulse Resp BP Sys/Peterson Pulse Ox Last 24 Hr 97.5 F-98.5 F 6-80 18-20 92-114/41-64 98-98 Constitutional: Yes: No Distress, Calm Eyes: No: Sclera Icterus HENT: No: Nasal Congestion Cardiovascular: Yes: Regular Rate and Rhythm, +JVD, S1, S2, Other (PMI non diplaced). No: Gallop, Murmur Respiratory: Yes: CTA Bilaterally. No: Accessory Muscle Use, Rales, Wheezes Gastrointestinal: Yes: Normal Bowel Sounds, Soft. No: Tenderness Musculoskeletal: Yes: Other (No kyphosis) Extremities: No: Cold Edema: No Integumentary: No: Jaundice Neurological: Yes: Alert, Oriented (x3) Psychiatric: No: Agitated Assessment/Plan ecg: sr, nonspec ivcd, no sig change vs prior cxr: clear lungs/pleura echo 01/2017: sev red lvef, global hk, nl lv size, nl rv size, sev lae, mild-mod as, mild ar, nl bio mvr, mod tr, rvsp 40-50, mod ao dilatation dobutamine echo ([place]): [id number] cath 02/03: patent rizo to lad, patent svg to om1, ISR mrca-->ptca; old isr plad , plcx (GRAIN COMBINE DRIVER), om1 (GRAIN COMBINE DRIVER) tele: AF, HR controlled. VT x3b a/p: 77 yo f hx Ischemic cardiomyopathy s/p ICD (single chamber, [employer] , placed 07/2013), CAD s/p cabg and prior multiple PCI (cabg 10/2012 at [facility], rizo to lad and svg to om) , MVR (bio) 10/2012, p-afib/flutter (s/p MAZE and DARIO ligation 10/2012), mod-sev , dm, htn, hld, anemia requiring transfusions here with sob, le edema. acute on chronic advanced systolic chf: -not on evie/ARB 2/2 to hyperkalemia and low bp in past. low bp's presently preclude addition of hydralazine or nitrates -cont bb at present dose - was receiving lasix 40 mg IV BID - 03/25 was increased to 80 mg IV BID due to weight up from prior admission (wt was 128 here in 01/04 (volume-up then). 136 lbs at o.v. followup 01/22/18. currently 149-151) and JVD on exam - 03/26: Cr improving, weight 149 on standing scale noted, voids not measured, continue 80 mg IV lasix : - dobutamine studies at [facility] showed mod-sev as. She was seen by tavr team but determined she was not a candidate for tavr since her prior mvr was encroaching into lvot and was too close to av. - HF med mgmt as above cad s/p CABG, mult PCIs: -cath 2016 with patent RIZO to LAD and SVG to OM1. severe ISR in RCA-->PTCA'd. no residual ischemic substrate -cont lipitor, bb, asa. p-afib/flutter: -s/p MAZE and DARIO ligation. due to intolerance to coumadin (sec to anemia requiring frequent transfusions and no identifiable treatable source), AC has been previously stopped and she has been managed with ASA alone. -cont bb -dig held here given age, decr GFR and level 1.1 s/p bio MVR: -no signs of valvular decompensation BRINDA on ckd: -baseline creat 1.5-1.8 during last admit. -suspect BRINDA from cardiorenal syndrome. -bun and creat improving with diuresis, observe trend anemia with h/o transfusions - hgb at baseline here (8s-9s)
--- NOTE | 2018-03-26 11:15 | PN ---
Progress Note, Physician Chief Complaint: c/o itching over legs and arms No SOB Breathing is better when she ambulates to the bathroom - Current Medication List Current Medications: Active Medications Acetaminophen (Tylenol -) 650 mg PO Q4H PRN PRN Reason: PAIN LEVEL 1-5 Aspirin (Ecotrin -) 81 mg PO DAILY [facility] Last Admin: 03/25/18 09:03 Dose: 81 mg Atorvastatin Calcium (Lipitor -) 20 mg PO HS [facility] Last Admin: 03/25/18 21:54 Dose: 20 mg Furosemide (Lasix Injection -) 80 mg IVPUSH BID@0600,1400 [facility] Last Admin: 03/26/18 05:59 Dose: 80 mg Heparin Sodium (Porcine) (Heparin -) 5,000 unit SQ BID [facility] Last Admin: 03/25/18 21:54 Dose: 5,000 unit Magnesium Oxide (Mag-Ox -) 400 mg PO DAILY [facility] Last Admin: 03/25/18 09:04 Dose: 400 mg Metoprolol Succinate (Toprol Xl -) 50 mg PO BID [facility] Last Admin: 03/25/18 21:54 Dose: 50 mg Pantoprazole Sodium (Protonix -) 40 mg PO DAILY [facility] Last Admin: 03/25/18 09:04 Dose: 40 mg Potassium Chloride (K-Dur -) 40 meq PO DAILY [facility] Last Admin: 03/25/18 09:03 Dose: 40 meq - Objective Vital Signs: Vital Signs Temperature 98 F 03/26/18 09:16 Pulse Rate 80 03/26/18 09:16 Respiratory Rate 18 03/26/18 09:16 Blood Pressure 100/45 03/26/18 09:16 O2 Sat by Pulse Oximetry (%) 98 03/26/18 09:00 Constitutional: Yes: No Distress, Calm Cardiovascular: Yes: Pulse Irregular Respiratory: Yes: Diminished Gastrointestinal: Yes: Normal Bowel Sounds, Soft. No: Tenderness Edema: Yes Edema: LLE: 1+, RLE: 1+ Integumentary: No: Rash Labs: CBC, BMP 03/25/18 05:30 03/26/18 05:30 INR, PTT INR 1.35 (0.83-1.09) D 03/20/18 12:10 Problem List - Problems (1) CHF (congestive heart failure) Code(s): I50.9 - HEART FAILURE, UNSPECIFIED Qualifiers: (2) Dyspnea Code(s): R06.00 - DYSPNEA, UNSPECIFIED (3) Renal insufficiency Code(s): N28.9 - DISORDER OF KIDNEY AND URETER, UNSPECIFIED (4) Acute on chronic congestive heart failure Code(s): I50.9 - HEART FAILURE, UNSPECIFIED (5) Afib Code(s): I48.91 - UNSPECIFIED ATRIAL FIBRILLATION Qualifiers: Atrial fibrillation type: persistent Qualified Code(s): I48.1 - Persistent atrial fibrillation (6) Anemia Code(s): D64.9 - ANEMIA, UNSPECIFIED Qualifiers: Anemia type: other cause (7) CAD (coronary artery disease) of artery bypass graft Code(s): I25.810 - ATHEROSCLEROSIS OF CABG W/O ANGINA PECTORIS Qualifiers: [place] vs. transplanted heart: [place] heart Associated angina: without angina Qualified Code(s): I25.810 - Atherosclerosis of coronary artery bypass graft(s) without angina pectoris Assessment/Plan PLAN on increased dose of iv Lasix Benadryl PRN Continue with meds OOB check renal function-- better today, though sodium trending up
[2018-03-26] MEDS: ASPIRIN COATED 81 MG TABLET.EC PO SCH (11:47)
[2018-03-26] MEDS: POTASSIUM CHLORIDE TABS 20 MEQ TABLET.ER (FP) PO SCH (11:48)
[2018-03-26] MEDS: PANTOPRAZOLE 40 MG TABLET (FP) PO SCH (11:48)
[2018-03-26] MEDS: MAGNESIUM OXIDE 400 MG TABLET (FP) PO SCH (11:48)
[2018-03-26] MEDS: HEPARIN NA (PORCINE) 5,000 UNITS/ML 1ML VIAL SQ SCH ×2 (11:48→22:16)
[2018-03-26] MEDS ORDERED: diphenhydrAMINE HCL 25 MG CAPSULE (FP) PO PRN (12:04)
[2018-03-26] MEDS: ACETAMINOPHEN 325 MG TABLET (FP) PO PRN (22:16)
[2018-03-26] MEDS: ATORVASTATIN CA 20 MG TABLET (FP) PO SCH (22:16)
[2018-03-27] MEDS: FUROSEMIDE 40 MG/4 ML INJECTABLE VIAL IVPUSH SCH ×3 (06:51→18:05)
[2018-03-27 07:15] LABS: HEMATOCRIT 28.5 % (32.4-45.2); MCH 25.3 pg (25.7-33.7); MCHC 31.8 g/dl (32.0-36.0); MEAN CELL VOLUME 79.5 fl (80-96); MEAN PLT VOLUME 8.5 fl (7.5-11.1); PLATELET COUNT 177 K/MM3 (134-434); RBC 3.58 M/mm3 (3.60-5.2); RDW 20.3 % (11.6-15.6); WHITE BLOOD COUNT 5.4 K/mm3 (4.0-10.0)
[2018-03-27 08:41] LABS: CHLORIDE 99 mmol/L (98-107); POTASSIUM 5.5 mmol/L (3.5-5.1); SODIUM 133 mmol/L (136-145)
[2018-03-27] MEDS: ASPIRIN COATED 81 MG TABLET.EC PO SCH (09:27)
[2018-03-27] MEDS: HEPARIN NA (PORCINE) 5,000 UNITS/ML 1ML VIAL SQ SCH ×2 (09:27→22:01)
[2018-03-27] MEDS: POTASSIUM CHLORIDE TABS 20 MEQ TABLET.ER (FP) PO SCH (09:27)
[2018-03-27] MEDS: PANTOPRAZOLE 40 MG TABLET (FP) PO SCH (09:27)
[2018-03-27] MEDS: MAGNESIUM OXIDE 400 MG TABLET (FP) PO SCH (09:27)
[2018-03-27 09:39] LABS: ANION GAP 10 (8-16); BLOOD UREA NITROGEN 70 mg/dL (7-18); CO2 24 mmol/L (21-32); CREATININE 2.2 mg/dL (0.55-1.02); GLUCOSE,RANDOM 129 mg/dL (74-106); MAGNESIUM 2.4 mg/dL (1.8-2.4)
--- NOTE | 2018-03-27 09:39 | PN ---
Progress Note (short form) - Note Progress Note: cc: sob s: no cp, dizziness, palps. lasix not given this AM due to low BP, was given later weight inc 149 lbs -> 153 lbs. overall she is feeling better, walking to bathroom down the [place] without dyspnea Current Medications Acetaminophen (Tylenol -) 650 mg PO Q4H PRN PRN Reason: PAIN LEVEL 1-5 Last Admin: 03/26/18 22:16 Dose: 650 mg Aspirin (Ecotrin -) 81 mg PO DAILY [facility] Last Admin: 03/27/18 09:27 Dose: 81 mg Atorvastatin Calcium (Lipitor -) 20 mg PO HS [facility] Last Admin: 03/26/18 22:16 Dose: 20 mg Diphenhydramine HCl (Benadryl -) 25 mg PO Q6H PRN PRN Reason: FOR ITCHING Last Admin: 03/26/18 14:02 Dose: 25 mg Furosemide (Lasix Injection -) 80 mg IVPUSH BID@0600,1400 [facility] Last Admin: 03/27/18 06:51 Dose: Not Given Heparin Sodium (Porcine) (Heparin -) 5,000 unit SQ BID [facility] Last Admin: 03/27/18 09:27 Dose: 5,000 unit Magnesium Oxide (Mag-Ox -) 400 mg PO DAILY [facility] Last Admin: 03/27/18 09:27 Dose: 400 mg Metoprolol Succinate (Toprol Xl -) 50 mg PO BID [facility] Last Admin: 03/27/18 09:27 Dose: 50 mg Pantoprazole Sodium (Protonix -) 40 mg PO DAILY [facility] Last Admin: 03/27/18 09:27 Dose: 40 mg Potassium Chloride (K-Dur -) 40 meq PO DAILY [facility] Last Admin: 03/27/18 09:27 Dose: 40 meq - Objective Vital Signs: Vital Signs Period Temp Pulse Resp BP Sys/Peterson Pulse Ox Last 24 Hr 97 F-98.2 F 56-72 18-22 94-110/47-56 100 Constitutional: Yes: No Distress, Calm Eyes: No: Sclera Icterus HENT: No: Nasal Congestion Cardiovascular: Yes: Regular Rate and Rhythm, +JVD, S1, S2, Other (PMI non diplaced). No: Gallop, Murmur Respiratory: Yes: CTA Bilaterally. No: Accessory Muscle Use, Rales, Wheezes Gastrointestinal: Yes: Normal Bowel Sounds, Soft. No: Tenderness Musculoskeletal: Yes: Other (No kyphosis) Extremities: No: Cold Edema: No Integumentary: No: Jaundice Neurological: Yes: Alert, Oriented (x3) Psychiatric: No: Agitated Assessment/Plan ecg: sr, nonspec ivcd, no sig change vs prior cxr: clear lungs/pleura echo 01/2017: sev red lvef, global hk, nl lv size, nl rv size, sev lae, mild-mod as, mild ar, nl bio mvr, mod tr, rvsp 40-50, mod ao dilatation dobutamine echo ([place]): [id number] cath 02/03: patent rizo to lad, patent svg to om1, ISR mrca-->ptca; old isr plad , plcx (HEALTH CAREERS INSTRUCTOR), om1 (HEALTH CAREERS INSTRUCTOR) tele: AF, HR controlled. VT x3b a/p: 77 yo f hx Ischemic cardiomyopathy s/p ICD (single chamber, [employer] , placed 07/2013), CAD s/p cabg and prior multiple PCI (cabg 10/2012 at [facility], rizo to lad and svg to om) , MVR (bio) 10/2012, p-afib/flutter (s/p MAZE and DARIO ligation 10/2012), mod-sev , dm, htn, hld, anemia requiring transfusions here with sob, le edema. acute on chronic advanced systolic chf: -not on evie/ARB 2/2 to hyperkalemia and low bp in past. low bp's presently preclude addition of hydralazine or nitrates -cont bb at present dose - was receiving lasix 40 mg IV BID - 03/25 was increased to 80 mg IV BID due to weight up from prior admission (wt was 128 here in 01/04 (volume-up then). 136 lbs at o.v. followup 01/22/18. currently 149-151) and JVD on exam - 03/26: Cr improving, weight 149 on standing scale noted, voids not measured, continue 80 mg IV lasix - 03/27 Cr increased, weight increased however still has JVD (improving but still present) and still has some dyspnea, will continue IV lasix and reassess in AM : - dobutamine studies at [facility] showed mod-sev as. She was seen by tavr team but determined she was not a candidate for tavr since her prior mvr was encroaching into lvot and was too close to av. - HF med mgmt as above cad s/p CABG, mult PCIs: -cath 2017 with patent RIZO to LAD and SVG to OM1. severe ISR in RCA-->PTCA'd. no residual ischemic substrate -cont lipitor, bb, asa. p-afib/flutter: -s/p MAZE and DARIO ligation. due to intolerance to coumadin (sec to anemia requiring frequent transfusions and no identifiable treatable source), AC has been previously stopped and she has been managed with ASA alone. -cont bb -dig held here given age, decr GFR and level 1.1 s/p bio MVR: -no signs of valvular decompensation BRINDA on ckd: -baseline creat 1.5-1.8 during last admit. -suspect BRINDA from cardiorenal syndrome. -bun and creat improving with diuresis, observe trend anemia with h/o transfusions - hgb at baseline here (8s-9s)
[2018-03-27] MEDS: ACETAMINOPHEN 325 MG TABLET (FP) PO PRN ×2 (15:01→22:02)
--- NOTE | 2018-03-27 20:39 | PN ---
Progress Note (short form) - Note Progress Note: Progress Note, Physician Chief Complaint: SOB when she ambulates - Current Medication List Current Medications: Active Medications Acetaminophen (Tylenol -) 650 mg PO Q4H PRN PRN Reason: PAIN LEVEL 1-5 Aspirin (Ecotrin -) 81 mg PO DAILY [facility] Last Admin: 03/25/18 09:03 Dose: 81 mg Atorvastatin Calcium (Lipitor -) 20 mg PO HS [facility] Last Admin: 03/25/18 21:54 Dose: 20 mg Furosemide (Lasix Injection -) 80 mg IVPUSH BID@0600,1400 [facility] Last Admin: 03/26/18 05:59 Dose: 80 mg Heparin Sodium (Porcine) (Heparin -) 5,000 unit SQ BID [facility] Last Admin: 03/25/18 21:54 Dose: 5,000 unit Magnesium Oxide (Mag-Ox -) 400 mg PO DAILY [facility] Last Admin: 03/25/18 09:04 Dose: 400 mg Metoprolol Succinate (Toprol Xl -) 50 mg PO BID [facility] Last Admin: 03/25/18 21:54 Dose: 50 mg Pantoprazole Sodium (Protonix -) 40 mg PO DAILY [facility] Last Admin: 03/25/18 09:04 Dose: 40 mg Potassium Chloride (K-Dur -) 40 meq PO DAILY [facility] Last Admin: 03/25/18 09:03 Dose: 40 meq - Objective Vital Signs: Vital Signs - 24 hr 03/26/18 03/27/18 03/27/18 21:00 01:00 05:00 Temperature 97.4 F L 98.2 F 97.6 F Pulse Rate 57 L 68 56 L Respiratory 22 22 18 Rate Blood Pressure 110/48 99/49 94/47 O2 Sat by Pulse 100 Oximetry (%) 03/27/18 03/27/18 03/27/18 09:00 09:14 14:00 Temperature 97 F L 97.9 F Pulse Rate 69 51 L Respiratory 18 Rate Blood Pressure 104/52 99/41 O2 Sat by Pulse 97 Oximetry (%) Constitutional: Yes: No Distress, Calm Cardiovascular: Yes: Pulse Irregular Respiratory: Yes: Diminished Gastrointestinal: Yes: Normal Bowel Sounds, Soft. No: Tenderness Edema: Yes Edema: LLE: 1+, RLE: 1+ Integumentary: No: Rash Labs: Laboratory Results - last 24 hr 03/26/18 03/27/18 03/27/18 22:24 06:20 06:20 WBC 5.4 RBC 3.58 L Hgb 9.0 L Hct 28.5 L MCV 79.5 L MCH 25.3 L MCHC 31.8 L RDW 20.3 H Plt Count 177 MPV 8.5 Sodium 133 L Potassium 5.5 H Chloride 99 Carbon Dioxide 24 Anion Gap 10 BUN 70 H Creatinine 2.2 H Creat Clearance w eGFR 21.53 POC Glucometer 178 Random Glucose 129 H Calcium 9.0 Magnesium 2.4 TSH 1.41 Problem List - Problems (1) CHF (congestive heart failure) Code(s): I50.9 - HEART FAILURE, UNSPECIFIED Qualifiers: (2) Dyspnea Code(s): R06.00 - DYSPNEA, UNSPECIFIED (3) Renal insufficiency Code(s): N28.9 - DISORDER OF KIDNEY AND URETER, UNSPECIFIED (4) Acute on chronic congestive heart failure Code(s): I50.9 - HEART FAILURE, UNSPECIFIED (5) Afib Code(s): I48.91 - UNSPECIFIED ATRIAL FIBRILLATION Qualifiers: Atrial fibrillation type: persistent Qualified Code(s): I48.1 - Persistent atrial fibrillation (6) Anemia Code(s): D64.9 - ANEMIA, UNSPECIFIED Qualifiers: Anemia type: other cause (7) CAD (coronary artery disease) of artery bypass graft Code(s): I25.810 - ATHEROSCLEROSIS OF CABG W/O ANGINA PECTORIS Qualifiers: [place] vs. transplanted heart: [place] heart Associated angina: without angina Qualified Code(s): I25.810 - Atherosclerosis of coronary artery bypass graft(s) without angina pectoris Assessment/Plan PLAN on increased dose of iv Lasix Benadryl PRN Continue with meds OOB renal function worsened- may need to be cautious about increased dose of lasix Problem List - Problems (1) CHF (congestive heart failure) Code(s): I50.9 - HEART FAILURE, UNSPECIFIED Qualifiers: (2) Dyspnea Code(s): R06.00 - DYSPNEA, UNSPECIFIED (3) Renal insufficiency Code(s): N28.9 - DISORDER OF KIDNEY AND URETER, UNSPECIFIED (4) Acute on chronic congestive heart failure Code(s): I50.9 - HEART FAILURE, UNSPECIFIED (5) Afib Code(s): I48.91 - UNSPECIFIED ATRIAL FIBRILLATION Qualifiers: Atrial fibrillation type: persistent Qualified Code(s): I48.1 - Persistent atrial fibrillation (6) Anemia Code(s): D64.9 - ANEMIA, UNSPECIFIED Qualifiers: Anemia type: other cause (7) CAD (coronary artery disease) of artery bypass graft Code(s): I25.810 - ATHEROSCLEROSIS OF CABG W/O ANGINA PECTORIS Qualifiers: [place] vs. transplanted heart: [place] heart Associated angina: without angina Qualified Code(s): I25.810 - Atherosclerosis of coronary artery bypass graft(s) without angina pectoris
[2018-03-27] MEDS: ATORVASTATIN CA 20 MG TABLET (FP) PO SCH (22:01)
[2018-03-27] MEDS: metoPROLOL SUCCINATE 25 MG TAB.SR.24H (FP) PO SCH (22:02)
[2018-03-28] MEDS: FUROSEMIDE 40 MG/4 ML INJECTABLE VIAL IVPUSH SCH (06:28)
[2018-03-28 08:38] LABS: ANION GAP 12 (8-16); BLOOD UREA NITROGEN 77 mg/dL (7-18); CALCIUM 8.9 mg/dL (8.5-10.1); CHLORIDE 101 mmol/L (98-107); CO2 23 mmol/L (21-32); CREATININE 2.6 mg/dL (0.55-1.02); GLUCOSE,RANDOM 118 mg/dL (74-106); SODIUM 136 mmol/L (136-145)
[2018-03-28 09:25] LABS: POTASSIUM 7.2 mmol/L (3.5-5.1)
[2018-03-28] MEDS: HEPARIN NA (PORCINE) 5,000 UNITS/ML 1ML VIAL SQ SCH ×2 (10:04→23:00)
[2018-03-28] MEDS: metoPROLOL SUCCINATE 25 MG TAB.SR.24H (FP) PO SCH ×2 (10:05→23:00)
[2018-03-28] MEDS: ASPIRIN COATED 81 MG TABLET.EC PO SCH (10:05)
[2018-03-28] MEDS: MAGNESIUM OXIDE 400 MG TABLET (FP) PO SCH (10:05)
[2018-03-28] MEDS: PANTOPRAZOLE 40 MG TABLET (FP) PO SCH (10:05)
[2018-03-28] MEDS ORDERED: SODIUM POLYSTYRENE SULFONATE 15 GM/60 ML BOTTLE PO ONE (11:45)
--- NOTE | 2018-03-28 12:12 | PN ---
Progress Note (short form) - Note Progress Note: s: no cp palps dizzy, sob at baseline o: Vital Signs Period Temp Pulse Resp BP Sys/Peterson Pulse Ox Last 24 Hr 97.4 F-98.1 F 51-70 18-20 98-123/41-73 97-97 nad, calm rrr s1s2 2/6 murmur at sternal border. ctab, nl eff aaox3 no le edema bl abd nt nd pos bs no jaundice diaphoresis aaox3 Current Medications Generic Name Dose Route Start Last Admin Trade Name Freq PRN Reason Stop Dose Admin Acetaminophen 650 mg 03/20/18 15:07 03/27/18 22:02 Tylenol - PO 650 mg Q4H PRN Administration PAIN LEVEL 1-5 Aspirin 81 mg 03/21/18 10:00 03/28/18 10:05 Ecotrin - PO 81 mg DAILY ZAY Administration Atorvastatin Calcium 20 mg 03/24/18 21:43 03/27/18 22:01 Lipitor - PO 20 mg HS [facility]AY Administration Diphenhydramine HCl 25 mg 03/26/18 12:04 03/26/18 14:02 Benadryl - PO 25 mg Q6H PRN Administration FOR ITCHING Heparin Sodium (Porcine) 5,000 unit 03/20/18 22:00 03/28/18 10:04 Heparin - SQ 5,000 unit BID ZAY Administration Metoprolol Succinate 25 mg 03/27/18 20:40 03/28/18 10:05 Toprol Xl - PO 25 mg BID [facility]AY Administration Pantoprazole Sodium 40 mg 03/21/18 10:00 03/28/18 10:05 Protonix - PO 40 mg DAILY [facility] Administration CBC, BMP 03/27/18 06:20 03/28/18 06:18 ecg: sr, nonspec ivcd, no sig change prior cxr: clear lungs/pleura echo 01/2017: sev red lvef, global hk, nl lv size, nl rv size, sev lae, mild-mod as, mild ar, nl bio mvr, mod tr, rvsp 40-50, mod ao dilatation dobutamine echo ([place]): [id number] cath 02/03: patent rizo to lad, patent svg to om1, ISR mrca-->ptca; old isr plad , plcx (PLAYER DEVELOPMENT MANAGER), om1 (PLAYER DEVELOPMENT MANAGER) tele: sr a/p: 77 yo f hx Ischemic cardiomyopathy s/p ICD (single chamber, [employer] , placed 07/2013), CAD s/p cabg and prior multiple PCI (cabg 10/2012 at [facility], rizo to lad and svg to om) , MVR (bio) 10/2012, p-afib/flutter (s/p MAZE and DARIO ligation 10/2012), mod-sev , dm, htn, hld, anemia requiring transfusions here with sob, le edema. acute on chronic advanced systolic chf: -not on evie/ARB 2/2 to hyperkalemia and low bp in past. low bp's presently preclude addition of hydralazine or nitrates -cont bb at present dose - was receiving lasix 40 mg IV BID - 03/25 was increased to 80 mg IV BID due to weight up from prior admission (wt was 128 here in 01/04 (volume-up then). 136 lbs at o.v. followup 01/22/18. currently 149-151) and JVD on exam - 03/26: Cr improving, weight 149 on standing scale noted, voids not measured, continue 80 mg IV lasix - 03/27 Cr increased, weight increased however still has JVD (improving but still present) and still has some dyspnea, will continue IV lasix and reassess in AM -03/28: bun/cr continue to rise, will dc iv lasix, monitor cr trend and resume po diuretic when cr improves. k elevated, will order kayexalate and repeat bmp in afternoon. : - do[facility]amine studies at [facility] showed mod-sev as. She was seen by tavr team but determined she was not a candidate for tavr since her prior mvr was encroaching into lvot and was too close to av. - HF med mgmt as above cad s/p CABG, mult PCIs: -cath 2016 with patent RIZO to LAD and SVG to OM1. severe ISR in RCA-->PTCA'd. no residual ischemic substrate -cont lipitor, bb, asa. p-afib/flutter: -s/p MAZE and DARIO ligation. due to intolerance to coumadin (sec to anemia requiring frequent transfusions and no identifiable treatable source), AC has been previously stopped and she has been managed with ASA alone. -cont bb -dig held here given age, decr GFR and level 1.1 s/p bio MVR: -no signs of valvular decompensation BRINDA on ckd: -baseline creat 1.5-1.8 during last admit. -as above anemia with h/o transfusions - hgb at baseline here (8s-9s)
--- NOTE | 2018-03-28 12:17 | PN ---
Progress Note (short form) - Note Progress Note: Progress Note, Physician Chief Complaint: SOB on exertion no chest pain no palpitations feels weak today , dizzy Current Medications Generic Name Dose Route Start Last Admin Trade Name Freq PRN Reason Stop Dose Admin Acetaminophen 650 mg 03/20/18 15:07 03/27/18 22:02 Tylenol - PO 650 mg Q4H PRN Administration PAIN LEVEL 1-5 Aspirin 81 mg 03/21/18 10:00 03/28/18 10:05 Ecotrin - PO 81 mg DAILY [facility] Administration Atorvastatin Calcium 20 mg 03/24/18 21:43 03/27/18 22:01 Lipitor - PO 20 mg HS [facility] Administration Diphenhydramine HCl 25 mg 03/26/18 12:04 03/26/18 14:02 Benadryl - PO 25 mg Q6H PRN Administration FOR ITCHING Heparin Sodium (Porcine) 5,000 unit 03/20/18 22:00 03/28/18 10:04 Heparin - SQ 5,000 unit BID [facility]AY Administration Metoprolol Succinate 25 mg 03/27/18 20:40 03/28/18 10:05 Toprol Xl - PO 25 mg BID [facility]AY Administration Pantoprazole Sodium 40 mg 03/21/18 10:00 03/28/18 10:05 Protonix - PO 40 mg DAILY [facility] Administration - Objective Vital Signs: Vital Signs - 24 hr 03/27/18 03/27/18 03/27/18 14:00 17:00 21:00 Temperature 97.9 F 97.4 F L 97.9 F Pulse Rate 51 L 55 L 61 Respiratory 18 18 Rate Blood Pressure 99/41 98/53 107/50 O2 Sat by Pulse 97 Oximetry (%) 03/28/18 03/28/18 03/28/18 01:00 06:00 09:00 Temperature 97.5 F L Pulse Rate 60 70 Respiratory 18 19 19 Rate Blood Pressure 98/45 123/73 O2 Sat by Pulse 97 Oximetry (%) 03/28/18 10:00 Temperature 98.1 F Pulse Rate 65 Respiratory 18 Rate Blood Pressure 100/49 O2 Sat by Pulse Oximetry (%) Constitutional: Yes: No Distress, Calm Cardiovascular: Yes: Pulse Irregular Respiratory: Yes: Diminished Gastrointestinal: Yes: Normal Bowel Sounds, Soft. No: Tenderness Edema: Yes Edema: LLE: 1+, RLE: 1+ Integumentary: No: Rash Labs: Laboratory Results - last 24 hr 03/28/18 06:18 Sodium 136 Potassium 7.2 H* Chloride 101 Carbon Dioxide 23 Anion Gap 12 BUN 77 H Creatinine 2.6 H Creat Clearance w eGFR 17.76 Random Glucose 118 H Calcium 8.9 Problem List - Problems (1) CHF (congestive heart failure) Code(s): I50.9 - HEART FAILURE, UNSPECIFIED Qualifiers: (2) Dyspnea Code(s): R06.00 - DYSPNEA, UNSPECIFIED (3) Renal insufficiency Code(s): N28.9 - DISORDER OF KIDNEY AND URETER, UNSPECIFIED (4) Acute on chronic congestive heart failure Code(s): I50.9 - HEART FAILURE, UNSPECIFIED (5) Afib Code(s): I48.91 - UNSPECIFIED ATRIAL FIBRILLATION Qualifiers: Atrial fibrillation type: persistent Qualified Code(s): I48.1 - Persistent atrial fibrillation (6) Anemia Code(s): D64.9 - ANEMIA, UNSPECIFIED Qualifiers: Anemia type: other cause (7) CAD (coronary artery disease) of artery bypass graft Code(s): I25.810 - ATHEROSCLEROSIS OF CABG W/O ANGINA PECTORIS Qualifiers: [place] vs. transplanted heart: [place] heart Associated angina: without angina Qualified Code(s): I25.810 - Atherosclerosis of coronary artery bypass graft(s) without angina pectoris Assessment/Plan PLAN lasix discontinued Worsening renal function-- renal consult received kayexalate recheck BMP in PM Benadryl PRN Continue with meds OOB Problem List - Problems (1) CHF (congestive heart failure) Code(s): I50.9 - HEART FAILURE, UNSPECIFIED Qualifiers: (2) Dyspnea Code(s): R06.00 - DYSPNEA, UNSPECIFIED (3) Renal insufficiency Code(s): N28.9 - DISORDER OF KIDNEY AND URETER, UNSPECIFIED (4) Acute on chronic congestive heart failure Code(s): I50.9 - HEART FAILURE, UNSPECIFIED (5) Afib Code(s): I48.91 - UNSPECIFIED ATRIAL FIBRILLATION Qualifiers: Atrial fibrillation type: persistent Qualified Code(s): I48.1 - Persistent atrial fibrillation (6) Anemia Code(s): D64.9 - ANEMIA, UNSPECIFIED Qualifiers: Anemia type: other cause (7) CAD (coronary artery disease) of artery bypass graft Code(s): I25.810 - ATHEROSCLEROSIS OF CABG W/O ANGINA PECTORIS Qualifiers: [place] vs. transplanted heart: [place] heart Associated angina: without angina Qualified Code(s): I25.810 - Atherosclerosis of coronary artery bypass graft(s) without angina pectoris
[2018-03-28] MEDS ORDERED: CALCIUM GLUCONATE 10% - 1,000 MG/10 ML VIAL IVPB ONE (12:26)
[2018-03-28] MEDS ORDERED: CALCIUM GLUCONATE 10% - 1,000 MG in SODIUM CHLORIDE 100 ML IVPB ONE (14:00)
--- NOTE | 2018-03-28 14:55 | CONSULT ---
Consult - text type - Consultation Consultation Note: Renal Consult for BRINDA This is a 77 year old woman with PMhx of CAD, Ischemic Cardiomyopathy s/p AICD, MVR, Afib, DM, Hypertension, Anemia and CKD who presented with complaints of sob and worsening LE edema and admitted for CHF and developed BRINDA/Hyperkalemia in the hospital. Pt reports that her SOB is improved and LE edema is improved. No CP, palpitations, N/V/D. Denies eating high potassium foods. S/p KCL supplementation. On IV Lasix. No dizziness or lightheadedness. PMhx: as above Allergies: NKDA Family Hx: NC Social hx No T/A/D ROS: As per HPI, all other pertinent ros negative Home Medications Medication Instructions Recorded Magnesium Oxide 400 mg PO DAILY 05/01/14 Aspirin Coated [Ecotrin -] 81 mg PO DAILY #30 tablet.ec 12/21/15 Digoxin [Lanoxin -] 0.125 mg PO DAILY tablet 12/21/15 Pantoprazole Sodium [Protonix] 40 mg PO DAILY 02/26/16 Metoprolol Succinate [Toprol XL -] 50 mg PO BID #60 tab.sr.24h 03/01/16 Atorvastatin Ca [Lipitor] 20 mg PO HS 04/05/17 Furosemide [Lasix -] 80 mg PO BID@0600,1400 #60 tablet 04/14/17 Potassium Chloride [K-Dur -] 40 meq PO DAILY #30 tab 04/14/17 Acetaminophen [Tylenol .Regular 650 mg PO Q4H PRN tablet 12/30/17 Strength -] Vital Signs Temperature 98.1 F 03/28/18 10:00 Pulse Rate 65 03/28/18 10:00 Respiratory Rate 18 03/28/18 10:00 Blood Pressure 100/49 03/28/18 10:00 O2 Sat by Pulse Oximetry (%) 97 03/28/18 09:00 Intake & Output 03/25/18 03/26/18 03/27/18 03/28/18 23:59 23:59 23:59 23:59 Intake Total 60 660 920 320 Output Total 150 300 Balance 60 510 920 20 Weight 67.812 kg 69.513 kg 68.492 kg NAD on NC O2 Neck supple mild JVD irregular, no M/R Dec BS at lung bases, no rales or wheeze soft NT/ND + edema in LE no bladder distension CBC, BMP 03/27/18 06:20 03/28/18 06:18 Current Medications Acetaminophen (Tylenol -) 650 mg PO Q4H PRN PRN Reason: PAIN LEVEL 1-5 Last Admin: 03/27/18 22:02 Dose: 650 mg Aspirin (Ecotrin -) 81 mg PO DAILY [facility] Last Admin: 03/28/18 10:05 Dose: 81 mg Atorvastatin Calcium (Lipitor -) 20 mg PO HS [facility] Last Admin: 03/27/18 22:01 Dose: 20 mg Diphenhydramine HCl (Benadryl -) 25 mg PO Q6H PRN PRN Reason: FOR ITCHING Last Admin: 03/26/18 14:02 Dose: 25 mg Heparin Sodium (Porcine) (Heparin -) 5,000 unit SQ BID [facility] Last Admin: 03/28/18 10:04 Dose: 5,000 unit Calcium Gluconate 1,000 mg/ (Sodium Chloride) 110 mls @ 110 mls/hr IVPB ONCE ONE Stop: 03/28/18 14:59 Metoprolol Succinate (Toprol Xl -) 25 mg PO BID [facility] Last Admin: 03/28/18 10:05 Dose: 25 mg Pantoprazole Sodium (Protonix -) 40 mg PO DAILY [facility] Last Admin: 03/28/18 10:05 Dose: 40 mg 77 year old woman with PMhx of CAD, Ischemic Cardiomyopathy s/p AICD, MVR, Afib , DM, Hypertension, Anemia and CKD who presented with complaints of sob and worsening LE edema and admitted for CHF and developed BRINDA/Hyperkalemia in the hospital. #Hyperkalemia #BRINDA secondary to IV diuresis induced volume depletion #CKD #CHF exacerbation #Anemia s/p Kayexalate and IV Calcium this AM Hold IV Lasix for now, will defer IVF given extensive cardiac history and CHF if no improvement in renal function or K may warrant IVF bolous Repeat labs this afternoon Change diet to low K diet Cardiology following check iron studies Thank you Will follow Gerald Antony DO
--- NOTE | 2018-03-28 15:28 | EKG ---
Test Reason : Blood Pressure : / mmHG Vent. Rate : 078 BPM Atrial Rate : 078 BPM P-R Int : 222 ms QRS Dur : 146 ms QT Int : 412 ms P-R-T Axes : 074 -54 117 degrees QTc Int : 469 ms SINUS RHYTHM WITH 1ST DEGREE A-V BLOCK WITH OCCASIONAL PREMATURE VENTRICULAR COMPLEXES LEFT AXIS DEVIATION NON-SPECIFIC INTRA-VENTRICULAR CONDUCTION BLOCK ABNORMAL ECG WHEN COMPARED WITH ECG OF 20-MAR-2018 11:15, PREMATURE VENTRICULAR COMPLEXES ARE NOW PRESENT INVERTED T WAVES HAVE REPLACED NONSPECIFIC T WAVE ABNORMALITY IN LATERAL LEADS Confirmed by RAGHAV ROMERO, JAYLEN ([id number]) on 03/28/2018 3:27:46 PM Referred By: DARYL SMALLS Confirmed By:JAYLEN AVILEZ MD
[2018-03-28 17:33] LABS: ANION GAP 13 (8-16); BLOOD UREA NITROGEN 74 mg/dL (7-18); CALCIUM 9.1 mg/dL (8.5-10.1); CHLORIDE 103 mmol/L (98-107); CO2 23 mmol/L (21-32); CREATININE 2.3 mg/dL (0.55-1.02); GLUCOSE,RANDOM 157 mg/dL (74-106); POTASSIUM 4.8 mmol/L (3.5-5.1); SODIUM 139 mmol/L (136-145)
[2018-03-28] MEDS: ATORVASTATIN CA 20 MG TABLET (FP) PO SCH (23:00)
[2018-03-29 06:46] LABS: ANION GAP 12 (8-16); BLOOD UREA NITROGEN 71 mg/dL (7-18); CALCIUM 8.9 mg/dL (8.5-10.1); CHLORIDE 104 mmol/L (98-107); CO2 25 mmol/L (21-32); CREATININE 2.1 mg/dL (0.55-1.02); GLUCOSE,RANDOM 133 mg/dL (74-106); POTASSIUM 4.7 mmol/L (3.5-5.1); SODIUM 141 mmol/L (136-145)
[2018-03-29] MEDS: metoPROLOL SUCCINATE 25 MG TAB.SR.24H (FP) PO SCH ×2 (09:06→21:22)
[2018-03-29] MEDS: PANTOPRAZOLE 40 MG TABLET (FP) PO SCH (09:06)
[2018-03-29] MEDS: ASPIRIN COATED 81 MG TABLET.EC PO SCH (09:06)
[2018-03-29] MEDS: HEPARIN NA (PORCINE) 5,000 UNITS/ML 1ML VIAL SQ SCH ×2 (09:07→21:21)
--- NOTE | 2018-03-29 10:58 | PN ---
Progress Note (short form) - Note Progress Note: patient seen and examined. Chart reviewed. patient reports feels better On oxygen Denies chest pain. All follow-ups noted Passing urine Vital Signs Temp 98 F 03/29/18 09:00 Pulse 80 03/29/18 09:00 Resp 18 03/29/18 09:00 BP 119/63 03/29/18 09:00 Pulse Ox 97 03/29/18 09:00 Intake & Output 03/28/18 03/28/18 03/29/18 11:59 23:59 11:59 Intake Total 320 120 Output Total 300 300 350 Balance 20 -180 -350 Weight 151 lb 150 lb Intake: IV 30 20 Saline Lock 30 20 IVPB 100 Oral 290 Output: Urine 300 300 350 Void 300 300 350 Other: Voiding Method Toilet Toilet Toilet # Unmeasured Voids Void 2 Bowel Movement Yes: soft, brown, red streak, small clot # Bowel Movements 1 Weight Measurement Method Standing Scale Standing Scale Active Medications Acetaminophen (Tylenol -) 650 mg PO Q4H PRN PRN Reason: PAIN LEVEL 1-5 Last Admin: 03/27/18 22:02 Dose: 650 mg Aspirin (Ecotrin -) 81 mg PO DAILY [facility] Last Admin: 03/29/18 09:06 Dose: 81 mg Atorvastatin Calcium (Lipitor -) 20 mg PO HS [facility] Last Admin: 03/28/18 23:00 Dose: 20 mg Diphenhydramine HCl (Benadryl -) 25 mg PO Q6H PRN PRN Reason: FOR ITCHING Last Admin: 03/26/18 14:02 Dose: 25 mg Heparin Sodium (Porcine) (Heparin -) 5,000 unit SQ BID [facility] Last Admin: 03/29/18 09:07 Dose: 5,000 unit Metoprolol Succinate (Toprol Xl -) 25 mg PO BID [facility] Last Admin: 03/29/18 09:06 Dose: 25 mg Pantoprazole Sodium (Protonix -) 40 mg PO DAILY [facility] Last Admin: 03/29/18 09:06 Dose: 40 mg CBC, BMP 03/27/18 06:20 03/29/18 05:30 Physical exam conscious cooperative --alert and awake Neck supple Lungs--diminished at bases CVS--heart sounds regular Abdomen--soft/ nontender Extremities--- trace edema Neuro--- alert and awake Assessment and plan CHF exacerbation coronary artery disease Anemia Renal insufficiency Continue present care clinically better Continue present care Monitor renal function Lasix on hold Follow-up labs Cardiology to follow Will discuss Will follow Discussed with nursing staff also Problem List - Problems (1) Renal insufficiency Code(s): N28.9 - DISORDER OF KIDNEY AND URETER, UNSPECIFIED (2) CHF (congestive heart failure) Code(s): I50.9 - HEART FAILURE, UNSPECIFIED Qualifiers: (3) Dyspnea Code(s): R06.00 - DYSPNEA, UNSPECIFIED (4) Acute on chronic congestive heart failure Code(s): I50.9 - HEART FAILURE, UNSPECIFIED (5) Afib Code(s): I48.91 - UNSPECIFIED ATRIAL FIBRILLATION Qualifiers: Atrial fibrillation type: persistent Qualified Code(s): I48.1 - Persistent atrial fibrillation (6) Anemia Code(s): D64.9 - ANEMIA, UNSPECIFIED Qualifiers: Anemia type: other cause (7) CAD (coronary artery disease) of artery bypass graft Code(s): I25.810 - ATHEROSCLEROSIS OF CABG W/O ANGINA PECTORIS Qualifiers: [place] vs. transplanted heart: [place] heart Associated angina: without angina Qualified Code(s): I25.810 - Atherosclerosis of coronary artery bypass graft(s) without angina pectoris
--- NOTE | 2018-03-29 11:14 | PN ---
Progress Note (short form) - Note Progress Note: s: no cp palps dizzy, sob at baseline o: Vital Signs Period Temp Pulse Resp BP Sys/Peterson Pulse Ox Last 24 Hr 97.3 F-98.1 F 77-81 -18 100-119/43-63 97-97 nad, calm rrr s1s2 2/6 murmur at sternal border. ctab, nl eff aaox3 no le edema bl abd nt nd pos bs no jaundice diaphoresis aaox3 Current Medications Generic Name Dose Route Start Last Admin Trade Name Freq PRN Reason Stop Dose Admin Acetaminophen 650 mg 03/20/18 15:07 03/27/18 22:02 Tylenol - PO 650 mg Q4H PRN Administration PAIN LEVEL 1-5 Aspirin 81 mg 03/21/18 10:00 03/29/18 09:06 Ecotrin - PO 81 mg DAILY ZAY Administration Atorvastatin Calcium 20 mg 03/24/18 21:43 03/28/18 23:00 Lipitor - PO 20 mg HS ZAY Administration Diphenhydramine HCl 25 mg 03/26/18 12:04 03/26/18 14:02 Benadryl - PO 25 mg Q6H PRN Administration FOR ITCHING Heparin Sodium (Porcine) 5,000 unit 03/20/18 22:00 03/29/18 09:07 Heparin - SQ 5,000 unit BID ZAY Administration Metoprolol Succinate 25 mg 03/27/18 20:40 03/29/18 09:06 Toprol Xl - PO 25 mg BID ZAY Administration Pantoprazole Sodium 40 mg 03/21/18 10:00 03/29/18 09:06 Protonix - PO 40 mg DAILY ZAY Administration CBC, BMP 03/27/18 06:20 03/29/18 05:30 ecg: sr, nonspec ivcd, no sig change prior cxr: clear lungs/pleura echo 01/2017: sev red lvef, global hk, nl lv size, nl rv size, sev lae, mild-mod as, mild ar, nl bio mvr, mod tr, rvsp 40-50, mod ao dilatation dobutamine echo ([place]): [id number] cath 02/03: patent rizo to lad, patent svg to om1, ISR mrca-->ptca; old isr plad , plcx (PORTUGUESE TUTOR), om1 (PORTUGUESE TUTOR) tele: sr a/p: 77 yo f hx Ischemic cardiomyopathy s/p ICD (single chamber, [employer] , placed 07/2013), CAD s/p cabg and prior multiple PCI (cabg 10/2012 at [facility], rizo to lad and svg to om) , MVR (bio) 10/2012, p-afib/flutter (s/p MAZE and DARIO ligation 10/2012), mod-sev , dm, htn, hld, anemia requiring transfusions here with sob, le edema. acute on chronic advanced systolic chf: -not on evie/ARB 2/2 to hyperkalemia and low bp in past. low bp's presently preclude addition of hydralazine or nitrates -cont bb at present dose - was receiving lasix 40 mg IV BID - 03/25 was increased to 80 mg IV BID due to weight up from prior admission (wt was 128 here in 01/04 (volume-up then). 136 lbs at o.v. followup 01/22/18. currently 149-151) and JVD on exam - 03/26: Cr improving, weight 149 on standing scale noted, voids not measured, continue 80 mg IV lasix - 03/27 Cr increased, weight increased however still has JVD (improving but still present) and still has some dyspnea, will continue IV lasix and reassess in AM -03/28: bun/cr continue to rise, will dc iv lasix, monitor cr trend and resume po diuretic when cr improves. k elevated, will order kayexalate and repeat bmp in afternoon. -03/29: cr improving. k improved. Continue to hold lasix now, will likely resume po diuretic tomorrow : - dobutamine studies at [facility] showed mod-sev as. She was seen by tavr team but determined she was not a candidate for tavr since her prior mvr was encroaching into lvot and was too close to av. - HF med mgmt as above cad s/p CABG, mult PCIs: -cath 2016 with patent RIZO to LAD and SVG to OM1. severe ISR in RCA-->PTCA'd. no residual ischemic substrate -cont lipitor, bb, asa. p-afib/flutter: -s/p MAZE and DARIO ligation. due to intolerance to coumadin (sec to anemia requiring frequent transfusions and no identifiable treatable source), AC has been previously stopped and she has been managed with ASA alone. -cont bb -dig held here given age, decr GFR and level 1.1 s/p bio MVR: -no signs of valvular decompensation BRINDA on ckd: -baseline creat 1.5-1.8 during last admit. -as above anemia with h/o transfusions - hgb at baseline here (8s-9s)
--- NOTE | 2018-03-29 13:00 | PN ---
Progress Note, Physician Chief Complaint: The patient seen in her room. Feeling well. No chest pain. No shortness of breath. Feeling tired. Maintains good urine output. History of Present Illness: This is a 77 year old woman with PMhx of CAD, Ischemic Cardiomyopathy s/p AICD, MVR, Afib, DM, Hypertension, Anemia and CKD who presented with complaints of sob and worsening LE edema and admitted for CHF and developed BRINDA/Hyperkalemia in the hospital. Pt reports that her SOB is improved and LE edema is improved. No CP, palpitations, N/V/D. Had profound Hyperkalemia - Current Medication List Current Medications: Active Medications Acetaminophen (Tylenol -) 650 mg PO Q4H PRN PRN Reason: PAIN LEVEL 1-5 Last Admin: 03/27/18 22:02 Dose: 650 mg Aspirin (Ecotrin -) 81 mg PO DAILY [facility] Last Admin: 03/29/18 09:06 Dose: 81 mg Atorvastatin Calcium (Lipitor -) 20 mg PO HS [facility] Last Admin: 03/28/18 23:00 Dose: 20 mg Diphenhydramine HCl (Benadryl -) 25 mg PO Q6H PRN PRN Reason: FOR ITCHING Last Admin: 03/26/18 14:02 Dose: 25 mg Heparin Sodium (Porcine) (Heparin -) 5,000 unit SQ BID [facility] Last Admin: 03/29/18 09:07 Dose: 5,000 unit Metoprolol Succinate (Toprol Xl -) 25 mg PO BID [facility] Last Admin: 03/29/18 09:06 Dose: 25 mg Pantoprazole Sodium (Protonix -) 40 mg PO DAILY [facility] Last Admin: 03/29/18 09:06 Dose: 40 mg - Objective Vital Signs: Vital Signs Temperature 98 F 03/29/18 09:00 Pulse Rate 80 03/29/18 09:00 Respiratory Rate 18 03/29/18 09:00 Blood Pressure 119/63 03/29/18 09:00 O2 Sat by Pulse Oximetry (%) 97 03/29/18 09:00 Constitutional: Yes: Well Nourished Eyes: Yes: EOM Intact HENT: Yes: Normocephalic Neck: Yes: Trachea Midline Cardiovascular: Yes: S1, S2 Respiratory: Yes: CTA Bilaterally, Diminished Gastrointestinal: Yes: Normal Bowel Sounds, Soft. No: Hematemesis Genitourinary: No: Bladder Distention, CVA Tenderness - Left, CVA Tenderness - Right Labs: CBC, BMP 03/27/18 06:20 03/29/18 05:30 INR, PTT INR 1.35 (0.83-1.09) D 03/20/18 12:10 Problem List - Problems (1) Hyperkalemia Code(s): E87.5 - HYPERKALEMIA (2) CHF (congestive heart failure) Code(s): I50.9 - HEART FAILURE, UNSPECIFIED Qualifiers: (3) Renal insufficiency Code(s): N28.9 - DISORDER OF KIDNEY AND URETER, UNSPECIFIED (4) Acute on chronic congestive heart failure Code(s): I50.9 - HEART FAILURE, UNSPECIFIED (5) Afib Code(s): I48.91 - UNSPECIFIED ATRIAL FIBRILLATION Qualifiers: Atrial fibrillation type: persistent Qualified Code(s): I48.1 - Persistent atrial fibrillation (6) Anemia Code(s): D64.9 - ANEMIA, UNSPECIFIED Qualifiers: Anemia type: other cause (7) CAD (coronary artery disease) of artery bypass graft Code(s): I25.810 - ATHEROSCLEROSIS OF CABG W/O ANGINA PECTORIS Qualifiers: [place] vs. transplanted heart: [place] heart Associated angina: without angina Qualified Code(s): I25.810 - Atherosclerosis of coronary artery bypass graft(s) without angina pectoris Assessment/Plan This is a 77 year old woman with PMhx of CAD, Ischemic Cardiomyopathy s/p AICD, MVR, Afib, DM, Hypertension, Anemia and CKD who presented with complaints of sob and worsening LE edema and admitted for CHF and developed BRINDA/Hyperkalemia in the hospital. Pt reports that her SOB is improved and LE edema is improved. No CP, palpitations, N/V/D. Denies eating high potassium foods. Hyperkalemia... Resolved with emergency management. Renal functions stable, and probably at her baseline. Will monitor the Renal functions with you. Detailed renal w/u may not be warranted at this time. Will f/u with you Thank you. Ana Robles MD
[2018-03-29] MEDS: ATORVASTATIN CA 20 MG TABLET (FP) PO SCH (21:21)
[2018-03-30] MEDS: ACETAMINOPHEN 325 MG TABLET (FP) PO PRN (00:14)
[2018-03-30 01:51] VITALS: BMI 26.7
[2018-03-30 07:47] LABS: ALBUMIN 3.1 g/dl (3.4-5.0); ANION GAP 8 (8-16); BLOOD UREA NITROGEN 68 mg/dL (7-18); CALCIUM 8.9 mg/dL (8.5-10.1); CHLORIDE 104 mmol/L (98-107); CO2 27 mmol/L (21-32); GLUCOSE,RANDOM 122 mg/dL (74-106); POTASSIUM 4.8 mmol/L (3.5-5.1); SGOT/AST 135 U/L (15-37); SGPT/ALT 202 U/L (12-78); SODIUM 139 mmol/L (136-145)
[2018-03-30 07:50] LABS: ALK PHOS 418 U/L (45-117); BILIRUBIN,TOTAL 1.4 mg/dL (0.2-1.0); CREATININE 1.9 mg/dL (0.55-1.02); TOT PROT 6.7 g/dl (6.4-8.2)
[2018-03-30] MEDS: metoPROLOL SUCCINATE 25 MG TAB.SR.24H (FP) PO SCH ×2 (09:42→23:18)
[2018-03-30] MEDS: ASPIRIN COATED 81 MG TABLET.EC PO SCH (09:42)
[2018-03-30] MEDS: PANTOPRAZOLE 40 MG TABLET (FP) PO SCH (09:42)
--- NOTE | 2018-03-30 10:00 | PN ---
Progress Note (short form) - Note Progress Note: s: no cp palps dizzy, sob at baseline, asking to go home o: Vital Signs Period Temp Pulse Resp BP Sys/Peterson Pulse Ox Last 24 Hr 97.5 F-98.4 F 72-81 -18 104-113/50-55 96 nad, calm rrr s1s2 2/6 murmur at sternal border. ctab, nl eff aaox3 no le edema bl abd nt nd pos bs no jaundice diaphoresis aaox3 Current Medications Generic Name Dose Route Start Last Admin Trade Name Freq PRN Reason Stop Dose Admin Acetaminophen 650 mg 03/20/18 15:07 03/30/18 00:14 Tylenol - PO 650 mg Q4H PRN Administration PAIN LEVEL 1-5 Aspirin 81 mg 03/21/18 10:00 03/30/18 09:42 Ecotrin - PO 81 mg DAILY ZAY Administration Atorvastatin Calcium 20 mg 03/24/18 21:43 03/29/18 21:21 Lipitor - PO 20 mg HS ZAY Administration Diphenhydramine HCl 25 mg 03/26/18 12:04 03/26/18 14:02 Benadryl - PO 25 mg Q6H PRN Administration FOR ITCHING Furosemide 80 mg 03/30/18 14:00 Lasix - PO BID@0600,1400 ZAY Heparin Sodium (Porcine) 5,000 unit 03/20/18 22:00 03/29/18 21:21 Heparin - SQ 5,000 unit BID ZAY Administration Metoprolol Succinate 25 mg 03/27/18 20:40 03/30/18 09:42 Toprol Xl - PO 25 mg BID ZAY Administration Pantoprazole Sodium 40 mg 03/21/18 10:00 03/30/18 09:42 Protonix - PO 40 mg DAILY ZAY Administration CBC, BMP 03/27/18 06:20 03/30/18 05:48 ecg: sr, nonspec ivcd, no sig change prior cxr: clear lungs/pleura echo 01/2017: sev red lvef, global hk, nl lv size, nl rv size, sev lae, mild-mod as, mild ar, nl bio mvr, mod tr, rvsp 40-50, mod ao dilatation dobutamine echo ([place]): [id number] cath 02/03: patent rizo to lad, patent svg to om1, ISR mrca-->ptca; old isr plad , plcx (SCIENCE TEACHER), om1 (SCIENCE TEACHER) tele: sr, 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 acute on chronic advanced systolic chf: -not on evie/ARB 2/2 to hyperkalemia and low bp in past. low bp's presently preclude addition of hydralazine or nitrates -cont bb at present dose - was receiving lasix 40 mg IV BID - 03/25 was increased to 80 mg IV BID due to weight up from prior admission (wt was 128 here in 01/04 (volume-up then). 136 lbs at o.v. followup 01/22/18. currently 149-151) and JVD on exam - 03/26: Cr improving, weight 149 on standing scale noted, voids not measured, continue 80 mg IV lasix - 03/27 Cr increased, weight increased however still has JVD (improving but still present) and still has some dyspnea, will continue IV lasix and reassess in AM -03/28: bun/cr continue to rise, will dc iv lasix, monitor cr trend and resume po diuretic when cr improves. k elevated, will order kayexalate and repeat bmp in afternoon. -03/29: cr improving. k improved. Continue to hold lasix now, will likely resume po diuretic tomorrow -03/30: cr, k improved. will resume home lasix 80 po bid : - dobutamine studies at [facility] showed mod-sev as. She was seen by tavr team but determined she was not a candidate for tavr since her prior mvr was encroaching into lvot and was too close to av. - HF med mgmt as above cad s/p CABG, mult PCIs: -cath 2016 with patent RIZO to LAD and SVG to OM1. severe ISR in RCA-->PTCA'd. no residual ischemic substrate -cont lipitor, bb, asa. p-afib/flutter: -s/p MAZE and DARIO ligation. due to intolerance to coumadin (sec to anemia requiring frequent transfusions and no identifiable treatable source), AC has been previously stopped and she has been managed with ASA alone. -cont bb -dig held here given age, decr GFR and level 1.1 s/p bio MVR: -no signs of valvular decompensation BRINDA on ckd: -baseline creat 1.5-1.8 during last admit. -as above anemia with h/o transfusions - hgb at baseline here (8s-9s) cardiac quijano stable for dc
--- NOTE | 2018-03-30 10:51 | PN ---
Progress Note, Physician Chief Complaint: Breathing is better when she ambulates to the bathroom - Current Medication List Current Medications: Active Medications Acetaminophen (Tylenol -) 650 mg PO Q4H PRN PRN Reason: PAIN LEVEL 1-5 Last Admin: 03/30/18 00:14 Dose: 650 mg Aspirin (Ecotrin -) 81 mg PO DAILY [facility] Last Admin: 03/30/18 09:42 Dose: 81 mg Atorvastatin Calcium (Lipitor -) 20 mg PO HS [facility] Last Admin: 03/29/18 21:21 Dose: 20 mg Diphenhydramine HCl (Benadryl -) 25 mg PO Q6H PRN PRN Reason: FOR ITCHING Last Admin: 03/26/18 14:02 Dose: 25 mg Furosemide (Lasix -) 80 mg PO BID@0600,1400 [facility] Heparin Sodium (Porcine) (Heparin -) 5,000 unit SQ BID [facility] Last Admin: 03/29/18 21:21 Dose: 5,000 unit Metoprolol Succinate (Toprol Xl -) 25 mg PO BID [facility] Last Admin: 03/30/18 09:42 Dose: 25 mg Pantoprazole Sodium (Protonix -) 40 mg PO DAILY [facility] Last Admin: 03/30/18 09:42 Dose: 40 mg - Objective Vital Signs: Vital Signs Temperature 97.5 F L 03/30/18 02:00 Pulse Rate 72 03/30/18 02:00 Respiratory Rate 18 03/30/18 09:00 Blood Pressure 104/50 03/30/18 02:00 O2 Sat by Pulse Oximetry (%) 96 03/30/18 09:00 Constitutional: Yes: No Distress Cardiovascular: Yes: Regular Rate and Rhythm Respiratory: Yes: Diminished Gastrointestinal: Yes: Normal Bowel Sounds, Soft. No: Tenderness Edema: Yes Labs: CBC, BMP 03/27/18 06:20 03/30/18 05:48 INR, PTT INR 1.35 (0.83-1.09) D 03/20/18 12:10 Problem List - Problems (1) CHF (congestive heart failure) Code(s): I50.9 - HEART FAILURE, UNSPECIFIED Qualifiers: (2) Dyspnea Code(s): R06.00 - DYSPNEA, UNSPECIFIED (3) Renal insufficiency Code(s): N28.9 - DISORDER OF KIDNEY AND URETER, UNSPECIFIED (4) Acute on chronic congestive heart failure Code(s): I50.9 - HEART FAILURE, UNSPECIFIED (5) Afib Code(s): I48.91 - UNSPECIFIED ATRIAL FIBRILLATION Qualifiers: Atrial fibrillation type: persistent Qualified Code(s): I48.1 - Persistent atrial fibrillation (6) Anemia Code(s): D64.9 - ANEMIA, UNSPECIFIED Qualifiers: Anemia type: other cause (7) CAD (coronary artery disease) of artery bypass graft Code(s): I25.810 - ATHEROSCLEROSIS OF CABG W/O ANGINA PECTORIS Qualifiers: [place] vs. transplanted heart: [place] heart Associated angina: without angina Qualified Code(s): I25.810 - Atherosclerosis of coronary artery bypass graft(s) without angina pectoris Assessment/Plan PLAN on Lasix Benadryl PRN Continue with meds OOB check renal function
[2018-03-30] MEDS: HEPARIN NA (PORCINE) 5,000 UNITS/ML 1ML VIAL SQ SCH ×2 (10:59→23:18)
--- NOTE | 2018-03-30 13:23 | PN ---
Progress Note, Physician Chief Complaint: The patient seen in her room. Feeling well. Wants to go home. No chest pain. No shortness of breath. Maintains good urine output. History of Present Illness: This is a 77 year old woman with PMhx of CAD, Ischemic Cardiomyopathy s/p AICD, MVR, Afib, DM, Hypertension, Anemia and CKD who presented with complaints of sob and worsening LE edema and admitted for CHF and developed BRINDA/Hyperkalemia in the hospital. Pt reports that her SOB is improved and LE edema is improved. No CP, palpitations, N/V/D. Had profound Hyperkalemia on admission. Improved since. - Current Medication List Current Medications: Active Medications Acetaminophen (Tylenol -) 650 mg PO Q4H PRN PRN Reason: PAIN LEVEL 1-5 Last Admin: 03/30/18 00:14 Dose: 650 mg Aspirin (Ecotrin -) 81 mg PO DAILY [facility] Last Admin: 03/30/18 09:42 Dose: 81 mg Atorvastatin Calcium (Lipitor -) 20 mg PO HS [facility] Last Admin: 03/29/18 21:21 Dose: 20 mg Diphenhydramine HCl (Benadryl -) 25 mg PO Q6H PRN PRN Reason: FOR ITCHING Last Admin: 03/26/18 14:02 Dose: 25 mg Furosemide (Lasix -) 80 mg PO BID@0600,1400 [facility] Heparin Sodium (Porcine) (Heparin -) 5,000 unit SQ BID [facility] Last Admin: 03/29/18 21:21 Dose: 5,000 unit Metoprolol Succinate (Toprol Xl -) 25 mg PO BID [facility] Last Admin: 03/30/18 09:42 Dose: 25 mg Pantoprazole Sodium (Protonix -) 40 mg PO DAILY [facility] Last Admin: 03/30/18 09:42 Dose: 40 mg - Objective Vital Signs: Vital Signs Temperature 98.1 F 03/30/18 10:00 Pulse Rate 76 03/30/18 10:00 Respiratory Rate 18 03/30/18 10:00 Blood Pressure 103/51 03/30/18 10:00 O2 Sat by Pulse Oximetry (%) 96 03/30/18 09:00 Constitutional: Yes: No Distress, Anxious, Pallor Eyes: Yes: Conjunctiva Clear Neck: Yes: Trachea Midline Cardiovascular: Yes: Bradycardia, S1, S2 Respiratory: Yes: CTA Bilaterally, Diminished Gastrointestinal: Yes: Normal Bowel Sounds, Soft Genitourinary: No: Bladder Distention, CVA Tenderness - Left, CVA Tenderness - Right, Hematuria Musculoskeletal: No: Joint Stiffness, Joint Swelling Neurological: Yes: Alert, Oriented Labs: CBC, BMP 03/27/18 06:20 03/30/18 05:48 INR, PTT INR 1.35 (0.83-1.09) D 03/20/18 12:10 Problem List - Problems (1) Hyperkalemia Code(s): E87.5 - HYPERKALEMIA (2) CHF (congestive heart failure) Code(s): I50.9 - HEART FAILURE, UNSPECIFIED Qualifiers: (3) Renal insufficiency Code(s): N28.9 - DISORDER OF KIDNEY AND URETER, UNSPECIFIED (4) Acute on chronic congestive heart failure Code(s): I50.9 - HEART FAILURE, UNSPECIFIED (5) Afib Code(s): I48.91 - UNSPECIFIED ATRIAL FIBRILLATION Qualifiers: Atrial fibrillation type: persistent Qualified Code(s): I48.1 - Persistent atrial fibrillation (6) Anemia Code(s): D64.9 - ANEMIA, UNSPECIFIED Qualifiers: Anemia type: other cause (7) CAD (coronary artery disease) of artery bypass graft Code(s): I25.810 - ATHEROSCLEROSIS OF CABG W/O ANGINA PECTORIS Qualifiers: [place] vs. transplanted heart: [place] heart Associated angina: without angina Qualified Code(s): I25.810 - Atherosclerosis of coronary artery bypass graft(s) without angina pectoris Assessment/Plan This is a 77 year old female with PMhx of CAD, Ischemic Cardiomyopathy s/p AICD , MVR, Afib, DM, Hypertension, Anemia and CKD who presented with complaints of sob and worsening LE edema and admitted for CHF and developed BRINDA/Hyperkalemia in the hospital. Pt reports that her SOB is improved and LE edema is improved. No CP, palpitations, N/V/D. Denies eating high potassium foods. Hyperkalemia... Resolved with emergency management. Renal functions stable, and probably at her baseline. Will monitor the Renal functions with you. Detailed renal w/u may not be warranted at this time. If she is discharged, shall f/u as outpatient in the office. Thank you. Ana Robles MD
[2018-03-30] MEDS: FUROSEMIDE 40 MG TABLET (FP) PO SCH (13:58)
[2018-03-30 13:59] LABS: BASO % 0.5 % (0-2.0); EOS % 0.7 % (0-4.5); HEMATOCRIT 28.5 % (32.4-45.2); LYMPH % 4.3 % (8-40); MCH 25.1 pg (25.7-33.7); MCHC 31.5 g/dl (32.0-36.0); MEAN CELL VOLUME 79.8 fl (80-96); MEAN PLT VOLUME 9.3 fl (7.5-11.1); MONO % 15.6 % (3.8-10.2); NEUT % 78.9 % (42.8-82.8); PLATELET COUNT 168 K/MM3 (134-434); RBC 3.56 M/mm3 (3.60-5.2); RDW 20.7 % (11.6-15.6); WHITE BLOOD COUNT 4.9 K/mm3 (4.0-10.0)
[2018-03-30 14:35] LABS: ANISOCYTOSIS 1+; MACROCYTOSIS 1+; OVALOCYTE 1+
[2018-03-30] MEDS: ATORVASTATIN CA 20 MG TABLET (FP) PO SCH (23:18)
[2018-03-31] MEDS: ACETAMINOPHEN 325 MG TABLET (FP) PO PRN (01:28)
[2018-03-31] MEDS: FUROSEMIDE 40 MG TABLET (FP) PO SCH ×2 (05:36→13:09)
[2018-03-31 06:39] LABS: ANION GAP 11 (8-16); BLOOD UREA NITROGEN 75 mg/dL (7-18); CALCIUM 8.6 mg/dL (8.5-10.1); CHLORIDE 103 mmol/L (98-107); CO2 23 mmol/L (21-32); CREATININE 2.1 mg/dL (0.55-1.02); GLUCOSE,RANDOM 132 mg/dL (74-106); POTASSIUM 4.9 mmol/L (3.5-5.1); SODIUM 137 mmol/L (136-145)
[2018-03-31] MEDS: PANTOPRAZOLE 40 MG TABLET (FP) PO SCH (09:26)
[2018-03-31] MEDS: ASPIRIN COATED 81 MG TABLET.EC PO SCH (09:26)
[2018-03-31] MEDS: metoPROLOL SUCCINATE 25 MG TAB.SR.24H (FP) PO SCH ×2 (09:27→21:22)
[2018-03-31] MEDS: HEPARIN NA (PORCINE) 5,000 UNITS/ML 1ML VIAL SQ SCH ×2 (09:27→21:22)
--- NOTE | 2018-03-31 10:13 | PN ---
Progress Note (short form) - Note Progress Note: s: no cp palps dizzy, sob at baseline, asking to go home o: Vital Signs Period Temp Pulse Resp BP Sys/Peterson Pulse Ox Last 24 Hr 97.4 F-97.9 F 65-73 20-20 73-118/46-72 99 nad, calm rrr s1s2 2/6 murmur at sternal border. ctab, nl eff aaox3 no le edema bl abd nt nd pos bs no jaundice diaphoresis aaox3 Current Medications Generic Name Dose Route Start Last Admin Trade Name Freq PRN Reason Stop Dose Admin Acetaminophen 650 mg 03/20/18 15:07 03/31/18 01:28 Tylenol - PO 650 mg Q4H PRN Administration PAIN LEVEL 1-5 Aspirin 81 mg 03/21/18 10:00 03/31/18 09:26 Ecotrin - PO 81 mg DAILY ZAY Administration Atorvastatin Calcium 20 mg 03/24/18 21:43 03/30/18 23:18 Lipitor - PO 20 mg HS ZAY Administration Diphenhydramine HCl 25 mg 03/26/18 12:04 03/26/18 14:02 Benadryl - PO 25 mg Q6H PRN Administration FOR ITCHING Furosemide 80 mg 03/30/18 14:00 03/31/18 05:36 Lasix - PO 80 mg BID@0600,1400 ZAY Administration Heparin Sodium (Porcine) 5,000 unit 03/20/18 22:00 03/31/18 09:27 Heparin - SQ 5,000 unit BID ZAY Administration Metoprolol Succinate 25 mg 03/27/18 20:40 03/31/18 09:27 Toprol Xl - PO 25 mg BID ZAY Administration Pantoprazole Sodium 40 mg 03/21/18 10:00 03/31/18 09:26 Protonix - PO 40 mg DAILY ZAY Administration CBC, BMP 03/30/18 12:45 03/31/18 05:30 ecg: sr, nonspec ivcd, no sig change prior cxr: clear lungs/pleura echo 01/2017: sev red lvef, global hk, nl lv size, nl rv size, sev lae, mild-mod as, mild ar, nl bio mvr, mod tr, rvsp 40-50, mod ao dilatation dobutamine echo ([place]): [id number] cath 02/03: patent rizo to lad, patent svg to om1, ISR mrca-->ptca; old isr plad , plcx (MANAGER COMMUNITY DEVELOPMENT), om1 (MANAGER COMMUNITY DEVELOPMENT) tele: sr, svp digital sales food & cooking at times a/p: 77 yo f hx Ischemic cardiomyopathy s/p ICD (single chamber, [employer] , placed 07/2013), CAD s/p cabg and prior multiple PCI (cabg 10/2012 at [facility], rizo to lad and svg to om) , MVR (bio) 10/2012, p-afib/flutter (s/p MAZE and DARIO ligation 10/2012), mod-sev , dm, htn, hld, anemia requiring transfusions here with sob, le edema. acute on chronic advanced systolic chf: -not on evie/ARB 2/2 to hyperkalemia and low bp in past. low bp's presently preclude addition of hydralazine or nitrates -cont bb at present dose - was receiving lasix 40 mg IV BID - 03/25 was increased to 80 mg IV BID due to weight up from prior admission (wt was 128 here in 01/04 (volume-up then). 136 lbs at o.v. followup 01/22/18. currently 149-151) and JVD on exam - 03/26: Cr improving, weight 149 on standing scale noted, voids not measured, continue 80 mg IV lasix - 03/27 Cr increased, weight increased however still has JVD (improving but still present) and still has some dyspnea, will continue IV lasix and reassess in AM -03/28: bun/cr continue to rise, will dc iv lasix, monitor cr trend and resume po diuretic when cr improves. k elevated, will order kayexalate and repeat bmp in afternoon. -03/29: cr improving. k improved. Continue to hold lasix now, will likely resume po diuretic tomorrow -03/30: cr, k improved. will resume home lasix 80 po bid -03/31: cont po lasix : - dobutamine studies at [facility] showed mod-sev as. She was seen by tavr team but determined she was not a candidate for tavr since her prior mvr was encroaching into lvot and was too close to av. - HF med mgmt as above cad s/p CABG, mult PCIs: -cath 2017 with patent RIZO to LAD and SVG to OM1. severe ISR in RCA-->PTCA'd. no residual ischemic substrate -cont lipitor, bb, asa. p-afib/flutter: -s/p MAZE and DARIO ligation. due to intolerance to coumadin (sec to anemia requiring frequent transfusions and no identifiable treatable source), AC has been previously stopped and she has been managed with ASA alone. -cont bb -dig held here given age, decr GFR and level 1.1 s/p bio MVR: -no signs of valvular decompensation BRINDA on ckd: -baseline creat 1.5-1.8 during last admit. -as above anemia with h/o transfusions - hgb at baseline here (8s-9s) cardiac quijano stable for dc
--- NOTE | 2018-03-31 12:06 | PN ---
Progress Note, Physician Chief Complaint: The patient seen in her room. Sitting on her bed. Feeling well. No chest pain. No shortness of breath. Maintains good urine output. History of Present Illness: This is a 77 year old woman with PMhx of CAD, Ischemic Cardiomyopathy s/p AICD, MVR, Afib, DM, Hypertension, Anemia and CKD who presented with complaints of sob and worsening LE edema and admitted for CHF and developed BRINDA/Hyperkalemia in the hospital. Pt reports that her SOB is improved and LE edema is improved. No CP, palpitations, N/V/D. Had profound Hyperkalemia on admission. Improved since. Some edema still persists. - Current Medication List Current Medications: Active Medications Acetaminophen (Tylenol -) 650 mg PO Q4H PRN PRN Reason: PAIN LEVEL 1-5 Last Admin: 03/31/18 01:28 Dose: 650 mg Aspirin (Ecotrin -) 81 mg PO DAILY [facility] Last Admin: 03/31/18 09:26 Dose: 81 mg Atorvastatin Calcium (Lipitor -) 20 mg PO HS [facility] Last Admin: 03/30/18 23:18 Dose: 20 mg Diphenhydramine HCl (Benadryl -) 25 mg PO Q6H PRN PRN Reason: FOR ITCHING Last Admin: 03/26/18 14:02 Dose: 25 mg Furosemide (Lasix -) 80 mg PO BID@0600,1400 [facility] Last Admin: 03/31/18 05:36 Dose: 80 mg Heparin Sodium (Porcine) (Heparin -) 5,000 unit SQ BID [facility] Last Admin: 03/31/18 09:27 Dose: 5,000 unit Metoprolol Succinate (Toprol Xl -) 25 mg PO BID [facility] Last Admin: 03/31/18 09:27 Dose: 25 mg Pantoprazole Sodium (Protonix -) 40 mg PO DAILY [facility] Last Admin: 03/31/18 09:26 Dose: 40 mg - Objective Vital Signs: Vital Signs Temperature 98 F 03/31/18 10:00 Pulse Rate 66 03/31/18 10:00 Respiratory Rate 18 03/31/18 10:00 Blood Pressure 93/50 03/31/18 10:00 O2 Sat by Pulse Oximetry (%) 99 03/31/18 09:00 Constitutional: Yes: Well Nourished, Calm Eyes: Yes: Conjunctiva Clear HENT: Yes: Normocephalic Neck: Yes: Trachea Midline Cardiovascular: Yes: S1, S2 Respiratory: Yes: CTA Bilaterally, Diminished Gastrointestinal: Yes: Normal Bowel Sounds, Soft Edema: Yes Edema: LLE: 1+, RLE: 1+ Labs: CBC, BMP 03/30/18 12:45 03/31/18 05:30 INR, PTT INR 1.35 (0.83-1.09) D 03/20/18 12:10 Problem List - Problems (1) Hyperkalemia Code(s): E87.5 - HYPERKALEMIA (2) CHF (congestive heart failure) Code(s): I50.9 - HEART FAILURE, UNSPECIFIED Qualifiers: (3) Renal insufficiency Code(s): N28.9 - DISORDER OF KIDNEY AND URETER, UNSPECIFIED (4) Acute on chronic congestive heart failure Code(s): I50.9 - HEART FAILURE, UNSPECIFIED (5) Afib Code(s): I48.91 - UNSPECIFIED ATRIAL FIBRILLATION Qualifiers: Atrial fibrillation type: persistent Qualified Code(s): I48.1 - Persistent atrial fibrillation (6) Anemia Code(s): D64.9 - ANEMIA, UNSPECIFIED Qualifiers: Anemia type: other cause (7) CAD (coronary artery disease) of artery bypass graft Code(s): I25.810 - ATHEROSCLEROSIS OF CABG W/O ANGINA PECTORIS Qualifiers: [place] vs. transplanted heart: [place] heart Associated angina: without angina Qualified Code(s): I25.810 - Atherosclerosis of coronary artery bypass graft(s) without angina pectoris Assessment/Plan This is a 77 year old female with PMhx of CAD, Ischemic Cardiomyopathy s/p AICD , MVR, Afib, DM, Hypertension, Anemia and CKD who presented with complaints of sob and worsening LE edema and admitted for CHF and developed BRINDA/Hyperkalemia in the hospital. The dyspnea has improved and LE edema is improved to some degree. Hyperkalemia... Resolved with emergency management. Renal functions stable, and probably at her baseline. Has underlying CKD. Will monitor the Renal functions with you. Should continue the Lasix 80 mg daily as ordered. If she is discharged, shall f/u as outpatient in the office. Thank you. Ana Robles MD
--- NOTE | 2018-03-31 13:26 | PN ---
Progress Note, Physician Chief Complaint: Breathing is better when she ambulates to the bathroom - Current Medication List Current Medications: Active Medications Acetaminophen (Tylenol -) 650 mg PO Q4H PRN PRN Reason: PAIN LEVEL 1-5 Last Admin: 03/31/18 01:28 Dose: 650 mg Aspirin (Ecotrin -) 81 mg PO DAILY [facility] Last Admin: 03/31/18 09:26 Dose: 81 mg Atorvastatin Calcium (Lipitor -) 20 mg PO HS [facility] Last Admin: 03/30/18 23:18 Dose: 20 mg Diphenhydramine HCl (Benadryl -) 25 mg PO Q6H PRN PRN Reason: FOR ITCHING Last Admin: 03/26/18 14:02 Dose: 25 mg Furosemide (Lasix -) 80 mg PO BID@0600,1400 [facility] Last Admin: 03/31/18 13:09 Dose: 80 mg Heparin Sodium (Porcine) (Heparin -) 5,000 unit SQ BID [facility] Last Admin: 03/31/18 09:27 Dose: 5,000 unit Metoprolol Succinate (Toprol Xl -) 25 mg PO BID [facility] Last Admin: 03/31/18 09:27 Dose: 25 mg Pantoprazole Sodium (Protonix -) 40 mg PO DAILY [facility] Last Admin: 03/31/18 09:26 Dose: 40 mg - Objective Vital Signs: Vital Signs Temperature 98 F 03/31/18 10:00 Pulse Rate 66 03/31/18 10:00 Respiratory Rate 18 03/31/18 10:00 Blood Pressure 93/50 03/31/18 10:00 O2 Sat by Pulse Oximetry (%) 99 03/31/18 09:00 Constitutional: Yes: No Distress Cardiovascular: Yes: Regular Rate and Rhythm Respiratory: Yes: Diminished Gastrointestinal: Yes: Normal Bowel Sounds, Soft. No: Tenderness Edema: Yes Labs: CBC, BMP 03/30/18 12:45 03/31/18 05:30 INR, PTT INR 1.35 (0.83-1.09) D 03/20/18 12:10 Problem List - Problems (1) CHF (congestive heart failure) Code(s): I50.9 - HEART FAILURE, UNSPECIFIED Qualifiers: (2) Dyspnea Code(s): R06.00 - DYSPNEA, UNSPECIFIED (3) Renal insufficiency Code(s): N28.9 - DISORDER OF KIDNEY AND URETER, UNSPECIFIED (4) Acute on chronic congestive heart failure Code(s): I50.9 - HEART FAILURE, UNSPECIFIED (5) Afib Code(s): I48.91 - UNSPECIFIED ATRIAL FIBRILLATION Qualifiers: Atrial fibrillation type: persistent Qualified Code(s): I48.1 - Persistent atrial fibrillation (6) Anemia Code(s): D64.9 - ANEMIA, UNSPECIFIED Qualifiers: Anemia type: other cause (7) CAD (coronary artery disease) of artery bypass graft Code(s): I25.810 - ATHEROSCLEROSIS OF CABG W/O ANGINA PECTORIS Qualifiers: [place] vs. transplanted heart: [place] heart Associated angina: without angina Qualified Code(s): I25.810 - Atherosclerosis of coronary artery bypass graft(s) without angina pectoris Assessment/Plan PLAN on Lasix po pt at baseline spoke with Cardiology- keep on BID Benadryl PRN Continue with meds OOB renal function- monitor pt wants to go home-- possible dc in AM
[2018-03-31] MEDS: ATORVASTATIN CA 20 MG TABLET (FP) PO SCH (21:22)
[2018-04-01] MEDS: FUROSEMIDE 40 MG TABLET (FP) PO SCH (05:59)
[2018-04-01] MEDS: ACETAMINOPHEN 325 MG TABLET (FP) PO PRN (07:43)
[2018-04-01] MEDS: metoPROLOL SUCCINATE 25 MG TAB.SR.24H (FP) PO SCH (09:09)
[2018-04-01] MEDS: PANTOPRAZOLE 40 MG TABLET (FP) PO SCH (09:09)
[2018-04-01] MEDS: ASPIRIN COATED 81 MG TABLET.EC PO SCH (09:10)
[2018-04-01] MEDS: HEPARIN NA (PORCINE) 5,000 UNITS/ML 1ML VIAL SQ SCH (09:10)
--- NOTE | 2018-04-01 10:06 | DS ---
Physical Examination Vital Signs: Vital Signs Temperature 97.5 F L 04/01/18 06:00 Pulse Rate 78 04/01/18 06:00 Respiratory Rate 20 04/01/18 06:00 Blood Pressure 109/56 04/01/18 06:00 O2 Sat by Pulse Oximetry (%) 98 03/31/18 21:00 Findings/Remarks: feels well. no complains wants to go home chart reviewed denies cp/sob. Constitutional: Yes: No Distress, Calm Eyes: Yes: Conjunctiva Clear Neck: Yes: Supple Cardiovascular: Yes: Regular Rate and Rhythm, Murmur Respiratory: Yes: Diminished Gastrointestinal: Yes: Soft Edema: No Neurological: Yes: Alert Psychiatric: Yes: Alert Labs: CBC, BMP 03/30/18 12:45 03/31/18 05:30 Discharge Summary Reason For Visit: ACUTE ON CHRONIC GONGESTIVE HEART FAILURE Current Active Problems CHF (congestive heart failure) (Acute) Dyspnea (Acute) Hyperkalemia (Acute) Renal insufficiency (Acute) Hospital Course: Admitted for chf exac Extensive cardiac history Treated with diuretics Also has renal insufficiency Now better/ stabilized Cr around 2.1 Cardiology/ radiology followed Will d/c home Pt advised to follow with his pmd Dr. 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 will discuss with his private pmd also. d/c time 30 min in examining/ documenting and coordating care Condition: Stable - Instructions Referrals: Aldo Gipson MD [Primary Care Provider] - Disposition: HOME - Home Medications Comprehensive Discharge Medication List: Ambulatory Orders Magnesium Oxide 400 mg PO DAILY 05/01/14 Aspirin Coated [Ecotrin -] 81 mg PO DAILY #30 tablet.ec 12/21/15 Pantoprazole Sodium [Protonix] 40 mg PO DAILY 02/26/16 Atorvastatin Ca [Lipitor] 20 mg PO HS 04/05/17 Furosemide [Lasix -] 80 mg PO BID@0600,1400 #60 tablet 04/14/17 Potassium Chloride [K-Dur -] 40 meq PO DAILY #30 tab 04/14/17 Acetaminophen [Tylenol .Regular Strength -] 650 mg PO Q4H PRN tablet 12/30/17 Metoprolol Succinate [Toprol XL -] 25 mg PO BID tab.sr.24h 04/01/18
[2018-04-01 10:18] VITALS: BP 113/47; PULSE 74; TEMP 98
--- NOTE | 2018-04-01 10:35 | PN ---
Progress Note, Physician - Current Medication List Current Medications: Active Medications Acetaminophen (Tylenol -) 650 mg PO Q4H PRN PRN Reason: PAIN LEVEL 1-5 Last Admin: 04/01/18 07:43 Dose: 650 mg Aspirin (Ecotrin -) 81 mg PO DAILY [facility] Last Admin: 04/01/18 09:10 Dose: 81 mg Atorvastatin Calcium (Lipitor -) 20 mg PO HS [facility] Last Admin: 03/31/18 21:22 Dose: 20 mg Diphenhydramine HCl (Benadryl -) 25 mg PO Q6H PRN PRN Reason: FOR ITCHING Last Admin: 03/26/18 14:02 Dose: 25 mg Furosemide (Lasix -) 80 mg PO BID@0600,1400 [facility] Last Admin: 04/01/18 05:59 Dose: 80 mg Heparin Sodium (Porcine) (Heparin -) 5,000 unit SQ BID [facility] Last Admin: 04/01/18 09:10 Dose: 5,000 unit Metoprolol Succinate (Toprol Xl -) 25 mg PO BID [facility] Last Admin: 04/01/18 09:09 Dose: 25 mg Pantoprazole Sodium (Protonix -) 40 mg PO DAILY [facility] Last Admin: 04/01/18 09:09 Dose: 40 mg - Objective Vital Signs: Vital Signs Temperature 98 F 04/01/18 10:00 Pulse Rate 74 04/01/18 10:00 Respiratory Rate 18 04/01/18 10:00 Blood Pressure 113/47 04/01/18 10:00 O2 Sat by Pulse Oximetry (%) 98 04/01/18 09:00 Labs: CBC, BMP 03/30/18 12:45 03/31/18 05:30 INR, PTT INR 1.35 (0.83-1.09) D 03/20/18 12:10 Assessment/Plan ecg: sr, nonspec ivcd, no sig change prior cxr: clear lungs/pleura echo 01/2017: sev red lvef, global hk, nl lv size, nl rv size, sev lae, mild-mod as, mild ar, nl bio mvr, mod tr, rvsp 40-50, mod ao dilatation dobutamine echo ([place]): [id number] cath 02/03: patent rizo to lad, patent svg to om1, ISR mrca-->ptca; old isr plad , plcx (WINDING INSPECTOR AND TESTER), om1 (WINDING INSPECTOR AND TESTER) tele: sr, vp lab at times a/p: 77 yo f hx Ischemic cardiomyopathy s/p ICD (single chamber, [employer] , placed 07/2013), CAD s/p cabg and prior multiple PCI (cabg 10/2012 at [facility], rizo to lad and svg to om) , MVR (bio) 10/2012, p-afib/flutter (s/p MAZE and DARIO ligation 10/2012), mod-sev , dm, htn, hld, anemia requiring transfusions here with sob, le edema. acute on chronic advanced systolic chf: -not on evie/ARB 2/2 to hyperkalemia and low bp in past. low bp's presently preclude addition of hydralazine or nitrates -cont bb at present dose - was receiving lasix 40 mg IV BID - 03/25 was increased to 80 mg IV BID due to weight up from prior admission (wt was 128 here in 01/04 (volume-up then). 136 lbs at o.v. followup 01/22/18. currently 149-151) and JVD on exam - 03/26 weight 149. was treated with lasix 80 iv bid-->bun/creat elaina, lasix held- ->80 po bid started when renal fxn improved -wt back up to 154 : - dobutamine studies at [facility] showed mod-sev as. She was seen by tavr team but determined she was not a candidate for tavr since her prior mvr was encroaching into lvot and was too close to av. - HF med mgmt as above cad s/p CABG, mult PCIs: -cath 2016 with patent RIZO to LAD and SVG to OM1. severe ISR in RCA-->PTCA'd. no residual ischemic substrate -cont lipitor, bb, asa. p-afib/flutter: -s/p MAZE and DARIO ligation. due to intolerance to coumadin (sec to anemia requiring frequent transfusions and no identifiable treatable source), AC has been previously stopped and she has been managed with ASA alone. -cont bb -dig held here given age, decr GFR and level 1.1 s/p bio MVR: -no signs of valvular decompensation BRINDA on ckd: -baseline creat 1.5-1.8 during last admit. -as above anemia with h/o transfusions - hgb at baseline here (8s-9s)
== END 2018-04-01 11:15 | disposition home or self-care (01) | DRG 291 ==
LOC: JER 10:32 → JERBED 14:45 → J4W 17:12
PROVIDERS: ADMIT Internal Medicine; ATTEND Internal Medicine
DX: I13.0 Hypertensive heart and chronic kidney disease with heart failure and stage 1 through stage 4 chronic kidney disease, or unspecified chronic kidney disease (principal); I50.23 Acute on chronic systolic (congestive) heart failure; I48.92 Unspecified atrial flutter; I48.1 Persistent atrial fibrillation; I47.1 Supraventricular tachycardia; N17.9 Acute kidney failure, unspecified; E11.22 Type 2 diabetes mellitus with diabetic chronic kidney disease; E87.5 Hyperkalemia; N18.9 Chronic kidney disease, unspecified; I42.8 Other cardiomyopathies; Z95.810 Presence of automatic (implantable) cardiac defibrillator; I25.10 Atherosclerotic heart disease of native coronary artery without angina pectoris; Z95.1 Presence of aortocoronary bypass graft; Z95.2 Presence of prosthetic heart valve; E78.5 Hyperlipidemia, unspecified; D64.9 Anemia, unspecified; Z87.891 Personal history of nicotine dependence; I35.0 Nonrheumatic aortic (valve) stenosis
CPT/HCPCS: 36415; 71045-TC-FY; 76705-TC; 80048; 80053; 80162; 81003; 82550; 82962; 83690; 83735; 83880; 84443; 84484; 85025; 85027; 85610; 85730; 93005; 93010; 93970-TC; 99283-25; J1644